=== PATIENT | female | born 1940 | race Caucasian/White ===

== ENCOUNTER → 2016-06-02 | Outpatient (CLI) | payer OTHER ==
[~2016-06-02] MED LIST: ASCO1CAP3 PO; BROM0.07 OPR; CHOL1TAB12 PO; LEVO75TA PO; LORA0.5T12 PO; MAGN250T3 PO; MULT-610 PO; PRED1SUS3 OPR
[2016-06-02 15:30] LABS: THYROID STIMULATING HORMONE 0.336 uIu/ml (0.300-4.500)
== END | disposition home or self-care (01) ==
LOC: C.LABBC 09:55
PROVIDERS: ATTEND Internal Medicine Endocrinology, Diabetes & Metabolism
DX: M81.0 Age-related osteoporosis without current pathological fracture (principal); E89.0 Postprocedural hypothyroidism; E55.9 Vitamin D deficiency, unspecified

== ENCOUNTER → 2016-09-17 | Outpatient (CLI) | payer OTHER ==
--- NOTE | 2016-09-17 09:26 | DIAGNOSTIC IMAGING REPORT ---
THYROID AND NECK ULTRASOUND CLINICAL HISTORY: Papillary thyroid carcinoma. Postablative hypothyroidism. COMPARISON STUDY: Nuclear medicine sestamibi scan January 17, 2016. TECHNIQUE: Sonography of the thyroidectomy bed and adjacent soft tissues was performed. FINDINGS: No residual thyroid tissue is identified by sonography. No nodule or enlarged lymph node is identified within the neck. IMPRESSION: 1. No abnormality within the thyroidectomy bed. 2. No cervical lymphadenopathy identified by sonography. Electronically signed by: Jersey Monzon M.D. 09/17/2016 9:24 AM Dictated Date/Time: 09/17/2016 9:23 AM
== END | disposition home or self-care (01) ==
LOC: C.ULTR 08:49
PROVIDERS: ATTEND Internal Medicine Endocrinology, Diabetes & Metabolism
DX: C73 Malignant neoplasm of thyroid gland (principal); E89.0 Postprocedural hypothyroidism; Z86.39 Personal history of other endocrine, nutritional and metabolic disease

== ENCOUNTER → 2016-10-01 | Outpatient (CLI) | payer OTHER ==
[2016-10-01 10:01] LABS: THYROID STIMULATING HORMONE 0.27 uIu/ml (0.300-4.500)
== END | disposition home or self-care (01) ==
LOC: C.LAB1850 07:58
PROVIDERS: ATTEND Internal Medicine Endocrinology, Diabetes & Metabolism
DX: E89.0 Postprocedural hypothyroidism (principal); E55.9 Vitamin D deficiency, unspecified; Z86.39 Personal history of other endocrine, nutritional and metabolic disease

== ENCOUNTER → 2016-12-24 | Outpatient (CLI) | payer OTHER | END | disposition home or self-care (01) | LOC: C.LABSPEC 17:23 | PROVIDERS: ATTEND Podiatrist Foot & Ankle Surgery | DX: B35.1 Tinea unguium (principal) ==

== ENCOUNTER → 2017-01-05 | Outpatient (CLI) | payer OTHER ==
[2017-01-05 14:08] LABS: ALT/SGPT 17 U/L (12-78); AST/SGOT 12 U/L (15-37); BLOOD UREA NITROGEN 17 mg/dl (7-18); BUN/CREATININE RATIO 23.3 (10-20); CALCIUM 9.5 mg/dl (8.5-10.1); CARBON DIOXIDE 29 mmol/L (21-32); CHLORIDE 104 mmol/L (98-107); CREATININE 0.73 mg/dl (0.60-1.20); GLUCOSE 98 mg/dl (70-99); POTASSIUM 3.9 mmol/L (3.5-5.1); SODIUM 140 mmol/L (136-145)
[2017-01-05 14:20] LABS: CHOLESTEROL 181 mg/dl (0-200); CHOLESTEROL/HDL RATIO 2.4; HDL CHOLESTEROL 75 mg/dl; LDL CHOLESTEROL CALCULATED 90 mg/dl; TRIGLYCERIDES 81 mg/dl (0-150); VERY LOW DENSITY LIPOPROT CALC 16 mg/dl
[2017-01-07 17:29] LABS: THYROGLOBULIN <0.1 NG/ML (2.8-40.9)
== END | disposition home or self-care (01) ==
LOC: C.LABBC 09:26
PROVIDERS: ATTEND Internal Medicine Endocrinology, Diabetes & Metabolism
DX: E78.00 Pure hypercholesterolemia, unspecified (principal); R73.03 Prediabetes; D86.9 Sarcoidosis, unspecified; M81.0 Age-related osteoporosis without current pathological fracture; E89.0 Postprocedural hypothyroidism; E55.9 Vitamin D deficiency, unspecified; C73 Malignant neoplasm of thyroid gland

== ENCOUNTER → 2017-03-17 | Outpatient (CLI) | payer OTHER ==
--- NOTE | 2017-03-18 10:36 | MAMMOGRAPHY REPORT ---
BILATERAL DIGITAL SCREENING MAMMOGRAM WITH CAD: 03/17/2017 CLINICAL HISTORY: Routine screening. Patient has no complaints. TECHNIQUE: Current study was also evaluated with a Computer Aided Detection (CAD) system. COMPARISON: Comparison is made to exams dated: 03/14/2016 mammogram, 03/12/2015 mammogram, 03/09/2014 m ammogram, 09/09/2013 mammogram, 03/10/2013 mammogram, and 03/08/2013 mammogram - [facility]. BREAST COMPOSITION: The tissue of both breasts is heterogeneously dense, which may obscure small mas ses. FINDINGS: There are stable groupings of coarse heterogeneous calcifications in the breasts. Mild vas cular calcification. No new suspicious mass, architectural distortion or cluster of microcalcificati ons is seen. IMPRESSION: ACR BI-RADS CATEGORY 1: NEGATIVE There is no mammographic evidence of malignancy. A 1 year screening mammogram is recommended. The pa tient will receive written notification of the results. Approximately 10% of breast cancers are not detected with mammography. A negative mammographic report should not delay biopsy if a clinically suggestive mass is present. Yeimi Mackenzie M.D. ay/:03/17/2017 08:46:46 Coil Finisher: Edith BALBUENA(Yolanda)(Tim), [facility] letter sent: Normal 1/2 BI-RADS Code: ACR BI-RADS Category 1: Negative
== END | disposition home or self-care (01) ==
LOC: C.MAMM 08:24
PROVIDERS: ATTEND Obstetrics & Gynecology
DX: Z12.31 Encounter for screening mammogram for malignant neoplasm of breast (principal)

== ENCOUNTER 2019-10-25 11:09 | Inpatient (IN) ==
--- NOTE | 2019-10-25 11:45 | Emergency Department Note ---
Impression & Plan Ambulatory dysfunction, Generalized muscle weakness, At high risk for falls ED Provider Note CHIEF COMPLAINT: Referral for possible placement HISTORY OF PRESENTING ILLNESS: This is a 79-year-old female who presents to the emergency department by private vehicle stating she was sent here by her PCP, Dr. Hurst. The patient states that she has recently had some falls at home and because of this was placed in rehab over the weekend. The patient states that she was very unhappy with her care at the rehab facility, stating "I just laid in bed all day and nobody did anything for me." She notes that she was having difficulty sleeping and was starting to become very anxious and delirious from not having sleep. She spoke with her daughter and Dr. Hurst yesterday, and they recommended that she come to the emergency department. She states that her daughter is working on setting up home health for her at home, but this may take 24 to 48 hours. The patient is under the impression that she is going to be admitted here for 1 night until her home health is set up. The patient currently lives alone and notes that she has stairs into her house, and is concerned about getting around with a walker, as she has just started using this. Her daughter has some disabilities of her own and is unable to care for the patient. The patient also voiced concerns regarding money stating that she is worried about all of these bills from her recent emergency visits and the rehab. Patient denies any complaints. She does note that she has been having some tailbone pain off and on since her recent falls, but she currently rates her pain is 0/10. She did not have any new falls or injuries. She denies any chest pain, shortness of breath, abdominal pain, back pain, numbness/tingling or weakness of the arms or legs, headaches, dizziness or syncope. REVIEW OF SYSTEMS: A complete 10 point review of systems was reviewed with the patient with pertinent positives and negatives as per history of present illness. All else were negative. PAST MEDICAL HISTORY: Migraines, hypothyroidism, osteoporosis, anxiety SOCIAL HISTORY: Lives at home alone, denies tobacco use ALLERGIES: Reviewed in chart PHYSICAL EXAM: CONSTITUTIONAL: Pleasant and cooperative. No acute distress. Well appearing and well nourished. HEENT: Normocephalic, atraumatic. PERRL, EOMI, normal conjunctiva. NECK: Supple, full active range of motion without discomfort. No cervical adenopathy. RESPIRATORY: Clear to auscultation bilaterally with no wheezing, crackles, rhonchi or stridor. Equal expansion bilaterally. CARDIOVASCULAR: Regular rate and rhythm with no murmurs, rubs or gallops. Normal peripheral perfusion, 2+ distal pulses in all 4 extremities. No pitting edema. GASTROINTESTINAL: Soft, nontender, nondistended. No palpable masses or HSM. Bowel sounds present in all quadrants. No CVA tenderness bilaterally. MUSCULOSKELETAL: Full range of motion of all joints without discomfort. 5/5 strength in all 4 extremities. Dorsiflexion and plantarflexion equal and strong bilaterally. INTEGUMENTARY: No rash or other significant dermatologic conditions noted. NEUROLOGIC: Alert and oriented X 4 with normal affect. Normal sensation in all 4 extremities. Normal speech. ED COURSE AND MEDICAL DECISION MAKING: CC: Patient presenting with complaint of need for possible placement DIFFERENTIAL DIAGNOSIS: Includes, but not limited to ambulatory dysfunction, failure to thrive, generalized muscle weakness, fall risk, among others. MEDICATION RECONCILIATION: I attest that I have personally reviewed the patient's current medication list. INITIAL VITAL SIGNS REVIEW: I reviewed the patient's initial vital signs and interpret them as follows: T: Afebrile; BP: Hypertensive; HR: Mildly tachycardic; RR: Within normal limits; Pulse Ox: Within normal limits on room air. Blood pressure screening: The patient was found to have an elevated blood pressure and was referred to their primary doctor for recheck and further treatment. MDM SUMMARY: Patient was evaluated at bedside, history and physical exam performed. Patient is alert and oriented, in no acute distress, resting calmly in the stretcher. She denies any complaints and her exam is unremarkable. Patient states she is here because she wants to go home from rehab, but is waiting for home health to be set up. The patient voices multiple times a concern regarding her finances, and does not want to be charged for any unnecessary tests. Given that she has not had any new injuries or complaints I do not feel any imaging or laboratory tests are warranted at this time. My greatest concern for the patient is that I do not feel she is safe to return home without some level of assistance. I spoke at length with the manager online, who is helping to coordinate the patient's care and plan for disposition. A physical therapy evaluation was ordered to determine the patient's fitness for discharge home, and after evaluation, they did not feel that she was safe to be discharged home alone. Patient discussed with Dr. Martinez, who agrees with my assessment, plan, and disposition. The gearcase assembler spoke at length with the patient and her daughter, and the patient is now agreeable to return to [facility] for further rehab. global engineering manager notes that [facility] is not willing to receive the patient back. She is looking into other rehab options for the patient. Ultimately, we were unable to find any rehab placement for the patient at this time. Given the patient's concern for ambulatory dysfunction and fall risk, she is unable to safely go home by herself. I spoke on the phone with Aleah Palacios with the hospitalist team, she agrees to evaluate the patient for admission. The patient was agreeable to the plan for admission. The chart was completed utilizing [employer] Speech voice recognition software. Grammatical errors, random word insertions, pronoun errors, and incomplete sentences are an occasional consequence of this system due to software limitations, ambient noise, and hardware issues. Any formal questions or concerns about the content, text, or information contained within the body of this dictation should be directly addressed to the nurse practitioner for clarification. Past Med/Surg History Medical History History of vitamin D deficiency (Acute) Hypothyroidism, postablative Migraine Osteoporosis Family History Mother Cardiovascular disease Diabetes Hypothyroidism Father Cardiovascular disease Diabetes Hypothyroidism Myocardial infarction Other Congestive heart failure Hypertension Denies family history of Colon cancer Ovarian cancer Prostate cancer Breast cancer Social History Smoking Status: Never smoker Hx Alcohol Use: No Hx Substance Use: No Preferred Language: Serbian Communication Ability: Effective marital status: current occupational status: retired Feels Safe at Home: Yes Physical Activity Frequency: Does not Exercise Seatbelt Use: always Allergies Allergies Allergy/AdvReac Type Severity Reaction Status Date / Time midazolam Allergy Mild confused, Unverified 10/21/19 08:52 off balence EPINEPHrine Base AERS AdvReac Unknown Unknown Uncoded 10/21/19 08:52 Home Meds Home Medications Medication Instructions Recorded Confirmed L.acid-B.inf-B.bifid-B.animal 5 1 cap PO DAILY 09/13/19 10/25/19 billion cell capsule sennosides 8.6 mg-docusate sodium 3 tab PO HS 09/13/19 10/25/19 50 mg tablet levothyroxine [Tirosint] 75 mcg PO QAM 10/19/19 10/25/19 linaclotide [Linzess] 145 mcg PO QAM 10/19/19 10/25/19 sertraline 50 mg PO HS 10/19/19 10/25/19 Previous Rx's Medication Instructions Recorded ibandronate 150 mg tablet 150 mg PO .COMPLEX #7 tab 09/14/19 Results & Data (ED) Vital Signs Vital Signs - 24 hr 10/25/19 11:12 10/25/19 13:33 10/25/19 15:00 Temperature 36.8 C Temperature Source Oral Pulse Rate 101 H Pulse Rate [Right Finger] 78 78 Respiratory Rate 16 16 16 Respiratory Effort / Characteristics Non-Labored Non-Labored Respiratory Depth Normal Normal Normal Blood Pressure 117/82 Blood Pressure [Right Arm] 144/90 H 144/90 H Blood Pressure Mean 93 Blood Pressure Mean [Right Arm] 108 108 Blood Pressure Position [Right Arm] Pulse Oximetry 97 99 99 Oxygen Delivery Method Room Air Room Air Room Air Sepsis Recent Fever Within 48 Hours No Sepsis New/Unexplained Change in Mental Status N/A Sepsis Action Taken by Nursing No Action Required 10/25/19 18:06 Temperature Temperature Source Pulse Rate Pulse Rate [Right Finger] 73 Respiratory Rate 18 Respiratory Effort / Characteristics Non-Labored Spontaneous Respiratory Depth Normal Blood Pressure Blood Pressure [Right Arm] 115/79 Blood Pressure Mean Blood Pressure Mean [Right Arm] 91 Blood Pressure Position [Right Arm] Lying Pulse Oximetry 96 Oxygen Delivery Method Room Air Sepsis Recent Fever Within 48 Hours Sepsis New/Unexplained Change in Mental Status Sepsis Action Taken by Nursing Discharge Plan Visit Data Chief Complaint: Fall Stated Complaint: REAR END PAIN,MUSCLE ED Provider: Cleve Martinez ED Midlevel Provider: Aleah Bragg Discharge Problem: Ambulatory dysfunction, Generalized muscle weakness, At high risk for falls Patient Disposition: Admitted As Inpatient Forms Stand Alone Forms: [facility] Prescriptions Prescriptions: No Action sennosides-docusate sodium [Colace 2-In-1] 8.6-50 mg tablet 3 tab PO HS RF: 0 Probiotic Digestive System Sup 5 billion cell capsule 1 cap PO DAILY RF: 0 ibandronate [Boniva] 150 mg tablet 150 mg PO .COMPLEX Qty: 7 RF: 2 Tirosint 75 mcg capsule 75 mcg PO QAM RF: 0 sertraline 50 mg tablet 50 mg PO HS RF: 0 Linzess 145 mcg capsule 145 mcg PO QAM RF: 0 Referrals Referrals: Cleve Hurst MD [Primary Care Provider] -
--- NOTE | 2019-10-25 18:25 | History & Physical Report ---
Date of Service October 25, 2019 Assessment & Plan (1) Ambulatory dysfunction: Patient was seen in the ED 10/20 for multiple falls the night before. At that time CT of head adn cspine were negative for fractures. She did have some electrolyte disturbances attributed to dehydration. She was referred to [facility] from there. At that time her ECG showed a normal SR. She was discharged from the ED to [facility]. Unfortunately she left [facility] due to lack of sleep and frustration with some medication issues. She was evaluated in the ED by physical therapy who felt she was not safe to go home. [facility] will not readmit patient and so alternative disposition will be investigated. Will consult CM for assistance. She was evaluated by neurology on 10/19 - felt her ambulatory dysfunction was likely multifactorial due to severe scoliosis and malnutrition with muscle wasting and mild generalized weakness. Patient does not wish to have any further workup. She has no complaints and no significant findings on physical exam so will hold off on any lab work or further testing for now. (2) Memory changes: Seen last week by neurology for memory deficit workup. 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 Will give sertraline 25 mg instead of 50 mg. Should have follow up with outpatient counselor Will consult psych, patient's anxiety and depression seem to be playing a role in her memory issues as well as her ability to maintain therapy for her falls (4) Hammer toe of left foot: Will need to follow up with orthopedics after discharge (5) Osteoporosis: Was to start ibendronate but has not yet. (6) Hypothyroidism, postablative: Continue home levothyroxine (7) Protein calorie malnutrition: Consult tile shader (8) IBS (irritable bowel syndrome): Continue Linzess and sennosides/docusate (9) Sarcoid: Stable (10) Mitral regurgitation: Followed by Dr. Mckeon (11) DVT prophylaxis: SCDs History of Present Illness Primary Care Provider: Cleve Hurst MD Ms. Brown presents after leaving [facility] due to lack of sleep there. She had been admitted to [facility] for frequent falls. She became frustrated with the activity at night there that kept her awake as well as a medication issue that was unable to be resolved. She asked a neighbor to pick her up. Her daughter was advised by Ms. Brown's doctor to come to the ED so her neighbor brought her here. She is not currently experiencing any symptoms except for anxiety and exhaustion. She denies fever, chills, aches, cough, sob, chest pain, lightheadedness, n/v/d, dysuria, hesitancy or rashes. Patient declined blood work or any testing in the ED and maintains that she has already had everything done previously and so wishes to avoid further workup. Allergies Allergy/AdvReac Type Severity Reaction Status Date / Time midazolam Allergy Mild confused, Unverified 10/21/19 08:52 off balence EPINEPHrine Base AERS AdvReac Unknown Unknown Uncoded 10/21/19 08:52 Home Medications Home Medications Medication Instructions Recorded Confirmed Type L.acid-B.inf-B.bifid-B.animal 5 1 cap PO DAILY 09/13/19 10/25/19 History billion cell capsule sennosides 8.6 mg-docusate sodium 3 tab PO HS 09/13/19 10/25/19 History 50 mg tablet ibandronate 150 mg tablet 150 mg PO .COMPLEX #7 tab 09/14/19 10/25/19 Rx levothyroxine [Tirosint] 75 mcg PO QAM 10/19/19 10/25/19 History linaclotide [Linzess] 145 mcg PO QAM 10/19/19 10/25/19 History sertraline 50 mg PO HS 10/19/19 10/25/19 History Past Med/Surg History Medical History History of vitamin D deficiency (Acute) Hypothyroidism, postablative Migraine Osteoporosis Family History Mother Cardiovascular disease Diabetes Hypothyroidism Father Cardiovascular disease Diabetes Hypothyroidism Myocardial infarction Other Congestive heart failure Hypertension Denies family history of Colon cancer Ovarian cancer Prostate cancer Breast cancer Social History Smoking Status: Never smoker Hx Alcohol Use: No Hx Substance Use: No Preferred Language: Chinese Communication Ability: Effective Adjunct Sociology Professor Required: No Beliefs That Will Affect Care: None marital status: Current Living Situation: Alone current occupational status: retired Other Information That Helps Us Care for You: No Feels Safe at Home: Yes Safety Concerns: Feels Safe At This Time Physical Activity Frequency: Does not Exercise Seatbelt Use: always Review of Systems Review of Systems: All systems reviewed & are unremarkable except as noted in HPI & below Physical Exam Physical Exam: General: no distress Eyes: normal inspection, PERLL Respiratory: chest non tender, clear to auscultation, normal breath sounds, no respiratory distress, no accessory muscle use Cardiac: regular rate and rhythm, no rub or gallop, no murmur, no edema, no jvd GI/: active bowel sounds, no abd pain or tenderness, soft, non distended Extremities: normal range of motion, normal strength, non tender Neuro/Psych: alert and oriented x 3, normal mood and affect, CN II - XII intact Skin: normal color, dry Results & Data Results & Data ([facility]) Vital Signs (Past 12 Hours) Vital Signs Temp Pulse Pulse Resp BP BP Pulse Ox 10/25/19 18:06 73 18 115/79 96 10/25/19 15:00 78 16 144/90 H 99 10/25/19 13:33 78 16 144/90 H 99 10/25/19 11:12 36.8 C 101 H 16 117/82 97 Code Status & VTE Plan Code Status DNR VTE Prophylaxis Plan VTE Prophylaxis will be ordered: Yes Supervising Physician Co-Signing Physician Notes I supervised Aleah Palacios NP on this patient's care. I examined the patient today independently of her. I discussed the plan of care with her with the plan being as written in her note except for any following changes/exceptions: None. In no distress in the ED. Reports some pain in the buttocks from her prior fall and then from PT at [facility]. Also concerned about her constipation which is chronic for her. 3 days since her last BM. - Will work on PT/OT & placement - Uses Milk of Magnesia for her constipation PG Care Time/CCT Total # of Minutes Spent Total Time Spent with Patient: Total time spent is greater than 50% in coordination of care (as documented) at patient's floor/unit and/or counseling patient: Coding Level of Care Code 46720 Initial Inpt Care Lvl 3 Diagnoses Ambulatory dysfunction R26.2 Memory changes R41.3 Anxiety, generalized F41.1 Hammer toe of left foot M20.42 Osteoporosis M81.0 Hypothyroidism, postablative E89.0 Protein calorie malnutrition E46 IBS (irritable bowel syndrome) K58.9 Sarcoid D86.9 Mitral regurgitation I34.0 DVT prophylaxis Z29.9
[2019-10-25] MEDS ORDERED: MELATONIN 3 MG TAB PO PRN (19:40)
[2019-10-25] MEDS ORDERED: MAGNESIUM HYDROXIDE SUSP 30 ML UDC PO ONE (20:23)
[2019-10-25] MEDS: DOCUSATE SODIUM/SENNA 50/8.6MG TAB PO SCH (21:34)
[2019-10-26] MEDS: LEVOTHYROXINE SODIUM 75 MCG TABLET PO SCH (07:15)
[2019-10-26] MEDS ORDERED: SERTRALINE HCL 50 MG TABLET PO SCH (09:00)
[2019-10-26] MEDS: LACTOBACILLUS ACIDOPHILUS (FLORANEX) TAB PO SCH (09:03)
[2019-10-26] MEDS ORDERED: SOD PHOSPHATE/SOD BIPHOSPHATE ENEMA 132 ML BTL PR ONE (11:11)
--- NOTE | 2019-10-26 11:32 | Psychiatric Consultation ---
Date of Consultation October 26, 2019 Impression / Recommendations Impression Dr. Dipti Rodriguez was directly involved in review and discussion of the patient's case and participated in medical decision making regarding treatment recommendations. RECOMMENDATIONS: 10/25 - Psychiatric consultation requested to evaluate patient for anxiety/depression, with recent failed SSRI trial (sertraline, max dose of 75mg). - Pt agreeable with discussion regarding alternative agents which may be beneficial for sleep concerns, decreased appetite, low mood, limited energy, and ruminative anxiety. Suggest initiation of mirtazapine at 7.5mg qHS for several nights - with ability to titrate to 15mg if patient tolerates the medication without concerns. Risks, benefits, and potential side effects discussed with patient - specifically risk of sedation which may contribute to gait instability if attempting to ambulate at night. Pt verbalized awareness and is agreeable with starting the medication here in the hospital. - Offered referrals for outpatient psychiatric medication management and psychotherapy, which patient declined due to financial concerns. Pt is hopeful her PCP will feel comfortable continuing to manage antidepressant medications. Pt can be referred for formal psychiatric medication management on an outpatient basis if indicated. - In regard to reported cognitive deficits, agree with outpatient neurology recommendations. Neuropsychological testing has been suggested and it will be difficult to make a definitive diagnosis of underlying dementia in the presence of uncontrolled anxiety/depression. Suggest continued evaluation to determine the significance of this as patient's depression/anxiety is being addressed. Mini-Cog completed by psychiatric nurse liaison with patient scoring a 3/5 (unable to recall 2 of 3 words without cueing, no issues with clock drawing). - Appreciate the opportunity to participate in the care of this patient. Please reach out to our service with any additional questions or updates. Psych History Identifying Data 79-year-old female admitted medically on 10/25/2019 after presenting to the ED upon recommendation from PCP due to ambulatory dysfunction. Pt was recently discharged home from [facility], but is representing with possible placement referral. Psychiatric consultation is requested by hospitalist team for evaluation of anxiety and depression, as there is concern this may be interfering with patient's treatment compliance. Chief Complaint "Well, um, I was upset about a lot of things happening in my family - just feeling depressed and down. I started Zoloft, but it seemed to make me worse." History of Present Illness Aleisha Brown is a 79-year-old female admitted medically on 10/25/2019 after presenting to the ED upon recommendation from PCP due to continued ambulatory dysfunction and fall risk. It is possible patient may be referred for placement given these recent concerns. As patient reported poor sleep and anxiety contributed to request to leave [facility], psychiatric consultation was requested by the hospitalist team to evaluate patient for anxiety and depression. Pt is cooperative with psychiatric assessment. She admits that she has been struggling more recently with low mood and anxiety, and even began taking sertraline as prescribed by her PCP. Pt states she started the medication as "I was upset about a lot of things happening in my family - just feeling depressed and down." Pt states that she had been having falls at home which led to recommendation for inpatient physical rehab at [facility]. Per patient's report, "I felt like more of a pain to them. I felt like burden, so I just wanted to come home." Pt admits that her anxiety and depression have worsened in the last 3 weeks since noticing a significant increase in health concerns. Pt also reports feeling "obsessive about germs" due to the combination of being hospitalized, concern about spreading infection to her daughter, and the current pandemic situation. Pt does endorse low mood presently, with history of episodes of depression. She states her daughter has also informed her "I was apparently quite depressed during her childhood." Pt also endorses increased anxiety, contributing to racing thoughts that make it difficult to sleep at night. Pt suggests she has not noticed a change in her appetite, but does mention losing 15lbs unintentionally over the past 6 months. Pt specifically mentions that her daughter has been concerned about her weight loss and believes the patient's appetite has been reduced. Pt states that she was seen by outpatient neurology and believes mirtazapine had been recommended to her. She was familiar with the suggestion, but denies antidepressant medication trials prior to the sertraline. Pt feels the sertraline had contributed to gait instability and is hopeful to discontinue the medication. Pt admits to anxiety about "anything new and different disturbs me." She did ask meaningful questions about starting a new medication, and risks and benefits were reviewed in detail. Pt was offered referral for an outpatient therapist and psychiatric prescriber which she declined. Pt denied SI/HI, SIB and any perceived safety concerns related to being in the hospital or discharge. Pt reports it is her current preference to return home with home health. She denied other needs or concerns from our service at this time. Past Psychiatric History Current Psychiatric Diagnosis: concern for depression/anxiety Outpatient Services: Sertraline prescribed by PCP Previous Psych Admissions: Denied History of Previous Suicide Attempt: No Past Medication Trials: Per patient's report and review of available external medical history: 1. Zoloft - concern dose of 75mg may have been contributing to ambulatory dysfunction 2. Ativan - taken to assist with anxiety/insomnia 3. Melatonin - given during this hospitalization for sleep Allergies Allergy/AdvReac Type Severity Reaction Status Date / Time midazolam Allergy Mild confused, Unverified 10/21/19 08:52 off balence EPINEPHrine Base AERS AdvReac Unknown Unknown Uncoded 10/21/19 08:52 Home Medications Home Medications Medication Instructions Recorded Confirmed Type L.acid-B.inf-B.bifid-B.animal 5 1 cap PO DAILY 09/13/19 10/25/19 History billion cell capsule sennosides 8.6 mg-docusate sodium 3 tab PO HS 09/13/19 10/25/19 History 50 mg tablet ibandronate 150 mg tablet 150 mg PO .COMPLEX #7 tab 09/14/19 10/25/19 Rx levothyroxine [Tirosint] 75 mcg PO QAM 10/19/19 10/25/19 History linaclotide [Linzess] 145 mcg PO QAM 10/19/19 10/25/19 History sertraline 50 mg PO HS 10/19/19 10/25/19 History Family History Reports father with a history of depression - also states father had Parkinson's disease. Substance Abuse History Denies significant alcohol or tobacco use. Denies use of illicit substances. 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) Marital Status: Number Of Children: One daughter Beliefs That Will Affect Care: None History of Legal Problems: None Psychological Trauma History Comment: None Patient History Medical History History of vitamin D deficiency (Acute) Hypothyroidism, postablative Migraine Osteoporosis Surgical History History of sigmoidoscopy S/P breast biopsy S/P hysterectomy with oophorectomy S/P subtotal thyroidectomy S/P thoracotomy Family History Mother Cardiovascular disease Diabetes Hypothyroidism Father Cardiovascular disease Diabetes Hypothyroidism Myocardial infarction Other Congestive heart failure Hypertension Denies family history of Colon cancer Ovarian cancer Prostate cancer Breast cancer Social History Smoking Status: Never smoker Hx Alcohol Use: No Hx Substance Use: No Preferred Language: Italian Communication Ability: Effective Emergency Services Dispatcher Required: No Beliefs That Will Affect Care: None marital status: Current Living Situation: Alone current occupational status: retired Other Information That Helps Us Care for You: No Feels Safe at Home: Yes Safety Concerns: Feels Safe At This Time Physical Activity Frequency: Does not Exercise Seatbelt Use: always Physical Exam Psychiatric: Orientation: alert, oriented x 3 and cooperative (and pleasant) Apperance: appropriately dressed, appropriately groomed and appeared stated age Underweight-appearing female, seated in bedside chair in no acute distress. Pt is appropriately dressed, wearing a hospital gown. She has short, curly, diehl hair which seems appropriately styled for setting. She wears corrective lenses. Level of hygiene and hydration appear adequate. Eye Contact: good eye contact Motor Behavior: no abnormal motor movements (observed while sitting in bedside chair) Speech: normal rate/rhythm/volume of speech (monotone speech) Affect: + blunted affect and + constricted affect Mood: + depressed mood and + anxious mood Thought Process: goal directed thought process, clear/coherent thought process and + perseveration (on germs and bowel movements) Thought Content: + preoccupation (with constipation, regularity of bowel movements, and germs), reality based without delusions, + hopelessness and + guilt (admits to feeling like a burden with regard to care needed at this time) Suicidal Thoughts: denies suicidal thoughts, denies suicidal plan and denies suicidal intent Homicidal Thoughts: denies homicidal thoughts Hallucinations: no auditory hallucinations and no visual hallucinations Cognition: attention grossly intact and language grossly intact Estimated Intelligence: consistent with education level Insight: + fair insight Judgement: + fair judgement Vital Signs (Past 24 Hours): Last Vital Signs Temp 36.6 C 10/26/19 07:30 Pulse 69 10/26/19 07:30 Resp 14 10/26/19 07:30 BP 105/74 10/26/19 10:27 Pulse Ox 97 10/26/19 07:30 Review of Systems Constitutional: reports difficulty falling asleep, 15lb weight loss in the past 6 months Cardiovascular: denied Respiratory: denied Gastrointestinal: denied Neurological: denied Psychiatric: denies symptoms other than stated above Total of at least 10 systems reviewed, pertinent positives as above and in HPI. Results & Data (PSY) Medications Administered Lactobacillus Acidophilus (Floranex) 4 tab PO DAILY HENRIQUE Stop: 11/25/19 08:59 Last Admin: 10/26/19 09:03 Dose: 4 tab Documented by: [id number] Levothyroxine Sodium (Synthroid) 75 mcg PO DAILYBB HENRIQUE Stop: 11/25/19 07:29 Last Admin: 10/26/19 07:15 Dose: 75 mcg Documented by: [id number] Miscellaneous (Order Awaiting Action) 1 ea N/A QS HENRIQUE Stop: 11/25/19 00:00 Last Admin: 10/26/19 09:02 Dose: Not Given Documented by: [id number] Admin: 10/26/19 00:22 Dose: Not Given Documented by: [id number] Aquilinoaneous (Order Awaiting Action) 1 ea N/A QS HENRIQUE Stop: 11/25/19 00:00 Last Admin: 10/26/19 09:02 Dose: Not Given Documented by: [id number] Admin: 10/25/19 21:36 Dose: Not Given Documented by: [id number] Senna/Docusate Sodium (Senokot S) 3 tab PO HS HENRIQUE Stop: 11/24/19 20:59 Last Admin: 10/25/19 21:34 Dose: 3 tab Documented by: [id number] Sertraline HCl (Zoloft) 25 mg PO QAM HENRIQUE Stop: 11/25/19 08:59 Last Admin: 10/26/19 09:03 Dose: 25 mg Documented by: [id number] Coding Level of Care Code 33898 U Intl Hosp Care Lvl 2
--- NOTE | 2019-10-26 14:42 | Hospitalist Progress Note ---
Date of Service October 26, 2019 Assessment & Plan (1) Ambulatory dysfunction: Patient was seen in the ED 10/20 for multiple falls the night before. At that time CT of head adn cspine were negative for fractures. She did have some electrolyte disturbances attributed to dehydration. She was referred to [facility] from there. At that time her ECG showed a normal SR. She was discharged from the ED to [facility]. Unfortunately she left [facility] due to lack of sleep and frustration with some medication issues. She was evaluated in the ED by physical therapy who felt she was not safe to go home. [facility] will not readmit patient and so alternative disposition will be investigated. Will consult for assistance. She was evaluated by neurology on 10/19 - felt her ambulatory dysfunction was likely multifactorial due to severe scoliosis and malnutrition with muscle wasting and mild generalized weakness. Patient does not wish to have any further workup. She has no complaints and no significant findings on physical exam so will hold off on any lab work or further testing for now. - PT/OT - orthostatics (2) Memory changes: Seen last week by neurology for memory deficit workup. Pseudodementia due to worsening depression/anxiety vs mild underlying early dementia - was referred for formal neuropsych testing - B12 and thiamine and methylmalonic acid levels were ordered - B12 was normal, B1 pending, methylmalonic acid pending (3) Anxiety, generalized: with depression Should have follow up with outpatient counselor Appreciate psychiatry consult - discontinued sertraline and initiated mirtaze pine to help with sleep and appetite as well as mood (4) Hammer toe of left foot: Will need to follow up with orthopedics after discharge (5) Osteoporosis: Was to start ibendronate but has not yet. (6) Hypothyroidism, postablative: Continue home levothyroxine (7) Protein calorie malnutrition: Consult graphics specialist (8) IBS (irritable bowel syndrome): Continue Linzess and sennosides/docusate Patient requesting enema - will order Fleets (9) Sarcoid: Stable (10) Mitral regurgitation: Followed by Dr. Mckeon (11) DVT prophylaxis: SCDs Admission and Anticipated Discharge Date Admission Date: October 25, 2019 Subjective Ms. Brown is experiencing some constipation and that her "blood pressure drops when I stand up". ROS Constitutional: no chills, aches, sweats or fever Respiratory: no sob,cough, sputum, or wheezing Cardiac: no chest pain, palpitations, edema, orthopnea or lightheadedness GI: no abdominal pain, nausea, vomiting, diarrhea or constipation : no dysuria or hesitancy Extremities: no joint pain or weakness Skin: no rash All other systems reviewed and negative Physical Exam Physical Exam: General: no distress Eyes: normal inspection, PERLL Respiratory: chest non tender, clear to auscultation, normal breath sounds, no respiratory distress, no accessory muscle use Cardiac: regular rate and rhythm, no rub or gallop, no murmur, no edema, no jvd GI/: active bowel sounds, no abd pain or tenderness, soft, non distended Extremities: normal range of motion, normal strength, non tender Neuro/Psych: alert and oriented x 3, normal mood and affect Skin: normal color, dry Results & Data Results & Data ([facility]) Vital Signs (Past 12 Hours) Vital Signs Temp Pulse Resp BP Pulse Ox 10/26/19 10:27 105/74 10/26/19 07:30 36.6 C 69 14 120/78 97 PG Care Time/CCT Total # of Minutes Spent Total Time Spent with Patient: Total time spent is greater than 50% in coordination of care (as documented) at patient's floor/unit and/or counseling patient: Coding Level of Care Code 80502 Subseq Hosp Care Lvl 2 Diagnoses Ambulatory dysfunction R26.2 Memory changes R41.3 Anxiety, generalized F41.1 Hammer toe of left foot M20.42 Osteoporosis M81.0 Hypothyroidism, postablative E89.0 Protein calorie malnutrition E46 IBS (irritable bowel syndrome) K58.9 Sarcoid D86.9 Mitral regurgitation I34.0 DVT prophylaxis Z29.9
[2019-10-26] MEDS: DOCUSATE SODIUM/SENNA 50/8.6MG TAB PO SCH (20:43)
[2019-10-26] MEDS: MIRTAZAPINE TAB 15 MG TAB PO SCH (20:43)
[2019-10-27] MEDS: LEVOTHYROXINE SODIUM 75 MCG TABLET PO SCH (05:30)
[2019-10-27] MEDS: LACTOBACILLUS ACIDOPHILUS (FLORANEX) TAB PO SCH (08:04)
[2019-10-27] MEDS ORDERED: SOD PHOSPHATE/SOD BIPHOSPHATE ENEMA 132 ML BTL PR PRN (13:50)
--- NOTE | 2019-10-27 13:52 | Hospitalist Progress Note ---
Date of Service October 27, 2019 Assessment & Plan (1) Ambulatory dysfunction: Patient was seen in the ED 10/20 for multiple falls the night before. At that time CT of head and cspine were negative for fractures. She did have some electrolyte disturbances attributed to dehydration. She was referred to [facility] from there. At that time her ECG showed a normal SR. She was discharged from the ED to [facility]. Unfortunately she left [facility] due to lack of sleep and frustration with some medication issues. She was evaluated in the ED by physical therapy who felt she was not safe to go home. [facility] will not readmit patient and so alternative disposition will be investigated. Will consult for assistance. She was evaluated by neurology on 10/19 - felt her ambulatory dysfunction was likely multifactorial due to severe scoliosis and malnutrition with muscle wasting and mild generalized weakness. Patient does not wish to have any further workup. She has no complaints and no significant findings on physical exam so will hold off on any lab work or further testing for now. - PT/OT - orthostatics (2) Memory changes: Seen last week by neurology for memory deficit workup. Pseudodementia due to worsening depression/anxiety vs mild underlying early dementia - was referred for formal neuropsych testing - B12 and thiamine and methylmalonic acid levels were ordered - B12 was normal, B1 pending, methylmalonic acid pending (3) Anxiety, generalized: with depression Should have follow up with outpatient counselor Appreciate psychiatry consult - discontinued sertraline and initiated mirtaze pine to help with sleep and appetite as well as mood (4) Hammer toe of left foot: Will need to follow up with orthopedics after discharge (5) Osteoporosis: Was to start ibendronate but has not yet. (6) Hypothyroidism, postablative: Continue home levothyroxine (7) Protein calorie malnutrition: Consult gravel weigher (8) IBS (irritable bowel syndrome): Continue Linzess and sennosides/docusate Prn Fleet enema (9) Sarcoid: Stable (10) Mitral regurgitation: Followed by Dr. Mckeon (11) DVT prophylaxis: SCDs Admission and Anticipated Discharge Date Admission Date: October 25, 2019 Subjective Ms. Brown is very concerned about her constipation but otherwise is doing ok. She was able to have a BM yesterday after an enema. She has no abdominal pain, distention or nausea. ROS Constitutional: no chills, aches, sweats or fever Respiratory: no sob,cough, sputum, or wheezing Cardiac: no chest pain, palpitations, edema, orthopnea or lightheadedness GI: no abdominal pain, nausea, vomiting, diarrhea : no dysuria or hesitancy Extremities: no joint pain or weakness Skin: no rash All other systems reviewed and negative Physical Exam Physical Exam: General: no distress Eyes: normal inspection, PERLL Respiratory: chest non tender, clear to auscultation, normal breath sounds, no respiratory distress, no accessory muscle use Cardiac: regular rate and rhythm, no rub or gallop, no murmur, no edema, no jvd GI/: active bowel sounds, no abd pain or tenderness, soft, non distended Extremities: normal range of motion, normal strength, non tender Neuro/Psych: alert and oriented x 3, normal mood and affect Skin: normal color, dry Results & Data Results & Data ([facility]) Vital Signs (Past 12 Hours) Vital Signs Temp Pulse Resp BP Pulse Ox 10/27/19 07:32 36.6 C 68 14 139/85 98 PG Care Time/CCT Total # of Minutes Spent Total Time Spent with Patient: Total time spent is greater than 50% in coordination of care (as documented) at patient's floor/unit and/or counseling patient: Coding Level of Care Code 99513 Subseq Hosp Care Lvl 2 Diagnoses Ambulatory dysfunction R26.2 Memory changes R41.3 Anxiety, generalized F41.1 Hammer toe of left foot M20.42 Osteoporosis M81.0 Hypothyroidism, postablative E89.0 Protein calorie malnutrition E46 IBS (irritable bowel syndrome) K58.9 Sarcoid D86.9 Mitral regurgitation I34.0 DVT prophylaxis Z29.9
[2019-10-27] MEDS: DOCUSATE SODIUM/SENNA 50/8.6MG TAB PO SCH (20:05)
[2019-10-27] MEDS: MIRTAZAPINE TAB 15 MG TAB PO SCH (20:05)
--- NOTE | 2019-10-28 04:08 | Communication Note ---
Date of Service: October 28, 2019 Aleisha had chest pain that radiated to left jaw and left arm. Patient was concerned about PR. ECG ordered, which was unremarkable/normal ECG. Pain resolved shortly after ECG and with mild reassurance. She noted pain improved from taking her bra off for the ECG, so perhaps the ECG was therapeutic in that regards. Resident Activity Tracking Resident Involvement: Resident Care Provided Care Provided: Adult Hospital Medicine
[2019-10-28] MEDS: LEVOTHYROXINE SODIUM 75 MCG TABLET PO SCH (05:23)
[2019-10-28] MEDS: LACTOBACILLUS ACIDOPHILUS (FLORANEX) TAB PO SCH (07:49)
--- NOTE | 2019-10-28 14:46 | Discharge Summary ---
Date of Service October 28, 2019 Admission HPI Per Admitting Provider Ms. Brown presents after leaving [facility] due to lack of sleep there. She had been admitted to [facility] for frequent falls. She became frustrated with the activity at night there that kept her awake as well as a medication issue that was unable to be resolved. She asked a neighbor to pick her up. Her daughter was advised by Ms. Brown's doctor to come to the ED so her neighbor brought her here. She is not currently experiencing any symptoms except for anxiety and exhaustion. She denies fever, chills, aches, cough, sob, chest pain, lightheadedness, n/v/d, dysuria, hesitancy or rashes. Patient declined blood work or any testing in the ED and maintains that she has already had everything done previously and so wishes to avoid further workup. Principal Diagnosis Frequent falls Discharge Exam Constitutional WD/WN, vitals as above Respiratory normal respiratory effort, lungs clear to auscultation Cardiovascular RRR, no murmur, no edema Gastrointestinal (Abdomen) Inspection/Auscultation: abdomen normal to inspection and normal bowel sounds; abdomen not distended Percussion/Palpation: abdomen soft; abdomen nontender Musculoskeletal no cyanosis or clubbing, extremities motor strength 5/5 Skin no rashes, warm and dry Neurologic moves all extremities and awake Psychiatric A+Ox3, euthymic affect Discharge Data Allergies Allergy/AdvReac Type Severity Reaction Status Date / Time midazolam Allergy Mild confused, Unverified 10/21/19 08:52 off balence EPINEPHrine Base AERS AdvReac Unknown Unknown Uncoded 10/21/19 08:52 Consultations 10/25/19 17:21 ED Decision to Admit Stat 10/25/19 19:40 Consult Case Management - Discharge Planning Routine 10/26/19 07:50 Consult Psychiatry Routine Hospital Course (1) Ambulatory dysfunction: Patient was seen in the ED 10/20 for multiple falls the night before. At that time CT of head and cspine were negative for fractures. She did have some electrolyte disturbances attributed to dehydration. She was referred to [facility] from there. At that time her ECG showed a normal SR. She was discharged from the ED to [facility]. Unfortunately she left [facility] due to lack of sleep and frustration with some medication issues. She was evaluated in the ED by physical therapy who felt she was not safe to go home. [facility] will not readmit patient and so alternative disposition will be investigated. Will consult CM for assistance. She was evaluated by neurology on 10/19 - felt her ambulatory dysfunction was l ikely multifactorial due to severe scoliosis and malnutrition with muscle wasting and mild generalized weakness. She is orthostatic: dropped from 136 systolically to 91 with standing. TEDS, move from sitting to standing slowly, stay hydrated. Patient does not wish to have any further workup. She has no complaints and no significant findings on physical exam so will hold off on any lab work or further testing for now. - PT/OT (2) Memory changes: Seen last week by neurology for memory deficit workup. 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 Her ECG was unremarkable and her chest pain was relieved with repositioning and removal of restrictive clothing. She has been ambulating the halls without any chest pain and has had no further instances. (5) Hammer toe of left foot: Will need to follow up with orthopedics after discharge (6) Osteoporosis: Was to start ibendronate but has not yet. 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 Mckeon (12) DVT prophylaxis: SCDs Total Time Total Time Spent Total Time Spent (In Minutes): greater than 30 minutes Discharge Plan Discharge Items Patient Disposition: Home - Home Health Services Reason For Visit: FALLS Discharge Diagnosis: Falls Activity: Resume your previous activity Non-emergency contact: Primary Care Provider Call non-emergency contact if: you have any medication questions Follow-up/Referrals: ProCleve MD [Primary Care Provider] - Diet: Regular Addtl Attending Provider Instructions: Ambulatory dysfunction, orthostasis: Patient has had multiple falls with recent visit to the emergency department on 10/20. At that time CT of head and cspine were negative for fractures. She did have some electrolyte disturbances attributed to dehydration. She was referred to [facility] from there. At that time her ECG showed a normal SR. She was discharged from the ED to [facility]. She wished to leave [facility] and so returned to the emergency department. She was evaluated in the ED by physical therapy who felt she was not safe to go home. She was evaluated by neurology on 10/19 - felt her ambulatory dysfunction was likely multifactorial due to severe scoliosis and malnutrition with muscle wasting and mild generalized weakness. She is orthostatic - blood pressure dropped from 136 systolically to 91 with standing. Encourage patient to go from sitting to standing slowly. Wear MARIA ISABEL hose and stay hydrated. Patient does not wish to have any further workup. She has no complaints and no significant findings on physical exam so no further work up was performed except for vital signs and and ECG Chest pain: Last evening she developed radiating chest pain to her arm and jaw during the night. Her ECG was unremarkable and her chest pain was relieved with repositioning and removal of restrictive clothing. She has been ambulating the halls without any chest pain and has had no further instances. Memory changes: Seen last week by neurology for memory deficit workup. 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 This can be titrated up with her provider if necessary Hammer toe of left foot: Will need to follow up with orthopedics after discharge Osteoporosis: Was to start ibendronate but has not yet. Hypothyroidism, postablative: Continue home levothyroxine Protein calorie malnutrition: Add Boost supplements three times per day and consider caustic purification operator follow up IBS (irritable bowel syndrome): Continue Linzess and sennosides/docusate Prn Fleet enema Sarcoid: Stable Mitral regurgitation: Followed by Dr. Mckeon History of papillary thyroid carcinoma and hyperparathyroidism Pending Studies at Discharge: No Stand-Alone Forms: [employer] A/[employer], Smoking Cessation Medications and DC Order Prescriptions: New mirtazapine 15 mg Tablet 7.5 mg PO HS Qty: 30 RF: 0 Enema Disposable 19-7 gram/118 mL Enema 132 ml IA DAILY PRN (Reason: constipation) Qty: 133 RF: 0 Continued sennosides-docusate sodium [Colace 2-In-1] 8.6-50 mg tablet 3 tab PO HS RF: 0 Probiotic Digestive System Sup 5 billion cell capsule 1 cap PO DAILY RF: 0 ibandronate [Boniva] 150 mg tablet 150 mg PO .COMPLEX Qty: 7 RF: 2 Tirosint 75 mcg capsule 75 mcg PO QAM RF: 0 sertraline 50 mg tablet 50 mg PO HS RF: 0 Linzess 145 mcg capsule 145 mcg PO QAM RF: 0 Discharge Orders: Discharge Order (Routine); Ordered 10/28/19 Ordered By: Aleah Palacios Admission Data Admit Date/Time: 10/25/19 18:07 Attending Provider: Raul Dumont Admit Provider: Raul Dumont Primary Care Provider: Cleve Hurst [facility] ; Raul Dum[facility] ; Dipti Rodriguez ; [facility] ; [facility] ; [facility], Other Interventions: Discharge Summary Assessment (RN) Last Done: 10/28/19 15:46 DC Date/Time DO NOT enter until pt leaves facility: 10/28/19 16:47 Supervising Physician Co-Signing Physician Notes I supervised Aleah Palacios NP on this patient's care. I examined the patient today independently of her. I discussed the plan of care with her with the plan being as written in her note except for any following changes/exceptions: None. In no distress today. Plan for [facility] placement. Coding Level of Care Code D/C Day Management >30 mins Diagnoses Ambulatory dysfunction R26.2 Memory changes R41.3 Anxiety, generalized F41.1 Chest pain R07.9 Hammer toe of left foot M20.42 Osteoporosis M81.0 Hypothyroidism, postablative E89.0 Protein calorie malnutrition E46 IBS (irritable bowel syndrome) K58.9 Sarcoid D86.9 Mitral regurgitation I34.0 DVT prophylaxis Z29.9
--- NOTE | 2019-10-28 16:01 | Electrocardiogram Report ---
Test Reason : Blood Pressure : / mmHG Vent. Rate : 070 BPM Atrial Rate : 070 BPM P-R Int : 216 ms QRS Dur : 076 ms QT Int : 396 ms P-R-T Axes : 075 -24 069 degrees QTc Int : 427 ms Sinus rhythm with 1st degree A-V block Septal infarct (cited on or before 28-OCT-2019) Abnormal ECG When compared with ECG of 21-OCT-2019 08:39, No significant change was found Confirmed by Cleve Rosenbaum ([id number]) on 10/28/2019 4:01:04 PM Referred By: REFERRED SELF Confirmed By:Cleve Rosenbaum
== END 2019-10-28 16:47 | disposition home health service (06) | DRG 92 ==
LOC: ED 11:09 → 3W 18:07

== ENCOUNTER 2020-04-12 11:52 | Inpatient (IN) ==
[2020-04-12] MEDS ORDERED: CEFEPIME 2,000 MG/20 ML VIAL IV STA (12:10)
[2020-04-12] MEDS ORDERED: SODIUM CHLORIDE 0.9% 1000ML 1,000 ML IV SCH (12:15)
--- NOTE | 2020-04-12 12:16 | Emergency Department Note ---
Impression & Plan Hypotension, Hypothermia, Bradycardia, Weakness, Acute confusion, Fall ED Provider Note NAME: THAD WINN AGE: 79 SEX: F : 1940 ARRIVES VIA: Walk-In INFORMANT: [Patient][daughter] ED PROVIDER(S): [Richy Luevano MD] CHIEF COMPLAINT: Weakness HISTORY OF PRESENT ILLNESS: The patient is a 79-year-old female who lives alone. The patient was discharged from [facility] in mid February, she has not been doing well since discharge as per her daughter. The patient has been weak, confused, stumbling, she is not able to care for herself. In the last few days, she has fallen twice. Today she was found on the floor by her daughter, it is unknown how long she was on the floor. Her house was quite disheveled. She was cold to the touch. She seemed more confused than even yesterday. She was brought to the hospital for evaluation. Patient is a poor historian, I really cannot get much history from her. She currently denies any pain. Given the circumstances, no further history obtainable. REVIEW OF SYSTEMS: Unobtainable given the mental state. PMHx/PSHx: See Below SOCIAL HISTORY: See Below. PHYSICAL EXAM: GENERAL: Patient is in no acute distress. HEENT: No acute trauma, normocephalic atraumatic, mucous membranes dry, no nasal congestion, no scleral icterus. NECK: No stridor, no adenopathy, no meningismus, trachea is midline. LUNGS: Clear to auscultation bilaterally, no wheeze, no rhonchi, breath sounds equal. HEART: Bradycardic, regular rhythm, no murmurs. ABDOMEN: Soft, nontender, bowel sounds positive, no hernias, no peritonitis. EXTREMITIES: No cyanosis or edema, full range of motion of all the joints without pain or difficulty, no signs for acute trauma. NEUROLOGIC: Awake and alert, poor historian, no acute motor or sensory deficits, no focal weakness. SKIN: No rash, no jaundice, no diaphoresis. Very cool to the touch DIFFERENTIAL DIAGNOSIS: Infection, dehydration, metabolic abnormality, hypothermia, intracranial bleeding, sepsis, UTI, pneumonia, COVID-19, medication reaction, hypo/hyperglycemia, electrolyte disturbance, anemia, hypoxia, cardiac sources, intracerebral event, toxicologic, neurologic, as well as other pathologies. EMERGENCY DEPARTMENT COURSE/PROCEDURES: ECG: Indication was weakness. The ECG shows what appears to be a sinus bradycardia with a first-degree AV block. The rate is 46. There is no ST elevation, no PVCs. The QTc is 502. There is poor R wave progression. Repeat ECG: Indication was bradycardia. Shows a sinus bradycardia with a first- degree AV block. There is no ST elevation, no PVCs. LVH is present. The QTc is 511. Continuous Cardiac Monitoring: An order was placed for continuous cardiac monitoring. The monitor shows a rate of 43 with sinus bradycardia. Critical Care Note: I have personally spent 46 minutes of critical care time in the direct management of this patient. This includes bedside care, interpretat ion of diagnostic studies, and testing, discussion with consultants, patient, and family members, and other required patient management activities. This 46 minutes is in excess of all separately billable procedures. MEDICAL DECISION MAKING: There is no leukocytosis, in fact, the white count was somewhat low at 4.26. No concerning anemia. There was a low platelet count at 122. There is no coagulopathy. Renal panel testing did not show renal failure or significant electrolyte abnormality. Lactic acid level and pro calcitonin levels were normal making severe sepsis less likely. Patient's TSH was slightly high indicating some mild hypothyroidism. The T4 value though was normal. ECG showed a sinus bradycardia, no acute ischemia. Cardiac enzyme testing x1 is not consistent with acute cardiac injury. Urinalysis showed contamination, no obvious infection. Covid and flu testing were negative. Chest film did not show pneumonia or CHF. Brain CT showed no acute bleed or mass-effect. The patient received 2 L of IV saline, 1 L of lactated Ringer's. She was given IV cefepime as empiric antibiotic coverage. The patient presents weak, confused, hypothermic, hypotensive and bradycardic. It appears that this is has been ongoing and escalating for several weeks. The patient does not appear septic by work-up. She has concerning vital signs, however, she has no complaints at the present and is resting comfortably. She is awake. I find no source for a bacterial infection by my work-up. The patient's blood pressure has improved a bit, her heart rate has remained at the bradycardic level. She was placed in a bear hugger, her temperature is s lowly increasing. I spoke to the patient's daughter at length, I talked to the patient. Hospitalization is clearly indicated. Further work-up and care is warranted. Patient does have a living well where she does not want overly aggressive measures. 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 I spoke with case management, the on-call hospitalist was consulted. Past Med/Surg History Medical History History of vitamin D deficiency Hypothyroidism, postablative IBS (irritable bowel syndrome) Migraine Mood disorder Osteoporosis Protein calorie malnutrition Sarcoid Surgical History History of sigmoidoscopy S/P breast biopsy S/P hysterectomy with oophorectomy S/P subtotal thyroidectomy S/P thoracotomy Family History Mother Cardiovascular disease Diabetes Hypothyroidism Father Cardiovascular disease Diabetes Hypothyroidism Myocardial infarction Other Congestive heart failure Hypertension Denies family history of Colon cancer Ovarian cancer Prostate cancer Breast cancer Social History Smoking Status: Never smoker Second Hand Exposure: No; Do You Dip or Chew Tobacco: No; Tobacco Cessation Education Requested by Patient: No Hx Alcohol Use: No Hx Substance Use: No Preferred Language: Argentine Communication Ability: hallucinat [employer]ored Reconnaissance Officer Required: No Beliefs That Will Affect Care: None marital status: Current Living Situation: Alone Current Living Situation Comment: friend with patient in ED current occupational status: retired Other Information That Helps Us Care for You: No Feels Safe at Home: Yes Safety Concerns: Feels Safe At This Time Physical Activity Frequency: Does not Exercise Seatbelt Use: always Assistive Devices: Glasses Allergies Allergies Allergy/AdvReac Type Severity Reaction Status Date / Time midazolam AdvReac Mild confused, Verified 04/12/20 14:07 off balence EPINEPHrine Base AERS Allergy Unknown Unknown Uncoded 04/12/20 14:07 Home Meds Home Medications Medication Instructions Recorded Confirmed benztropine 1 mg tablet 0.5 mg PO BID 02/28/20 04/12/20 paliperidone 6 mg tablet,extended 3 mg PO HS 02/28/20 04/12/20 release 24 hr docusate sodium [Colace] 100 mg PO QDL 04/12/20 04/12/20 donepezil 5 mg PO HS 04/12/20 04/12/20 fluoxetine 20 mg PO PM 04/12/20 04/12/20 levothyroxine [Synthroid] 88 mcg PO QAM 04/12/20 04/12/20 Results & Data (ED) Vital Signs Vital Signs - 24 hr 04/12/20 11:54 04/12/20 12:02 04/12/20 12:10 Temperature 29.5 C L 31.2 C L Temperature Source Temporal Artery Scan Rectal Pulse Rate 47 L Pulse Rate from SpO2 Sensor Respiratory Rate 16 Blood Pressure 93/61 L Blood Pressure Mean 71 Pulse Oximetry 100 99 Oxygen Delivery Method Room Air Room Air Sepsis Recent Fever Within 48 Hours Yes Sepsis New/Unexplained Change in Mental Status Yes Sepsis Action Taken by Nursing No Action Required 04/12/20 12:20 04/12/20 12:34 04/12/20 12:43 Temperature Temperature Source Pulse Rate 40 L 33 L 15 L Pulse Rate from SpO2 Sensor 40 L 49 L 54 L Respiratory Rate 7 L 12 15 Blood Pressure 86/56 L 75/50 L 71/56 L Blood Pressure Mean 65 56 62 Pulse Oximetry 100 98 99 Oxygen Delivery Method Sepsis Recent Fever Within 48 Hours Sepsis New/Unexplained Change in Mental Status Sepsis Action Taken by Nursing 04/12/20 12:45 04/12/20 12:56 04/12/20 13:00 Temperature Temperature Source Pulse Rate 66 51 L 50 L Pulse Rate from SpO2 Sensor 56 L 51 L 50 L Respiratory Rate 13 11 L 11 L Blood Pressure 70/55 L 93/58 L 86/58 L Blood Pressure Mean 62 68 63 Pulse Oximetry 99 98 98 Oxygen Delivery Method Sepsis Recent Fever Within 48 Hours Sepsis New/Unexplained Change in Mental Status Sepsis Action Taken by Nursing 04/12/20 13:10 04/12/20 13:16 04/12/20 13:18 Temperature Temperature Source Pulse Rate 57 L 52 L Pulse Rate from SpO2 Sensor 50 L 52 L 53 L Respiratory Rate 13 11 L 9 L Blood Pressure 87/56 L 76/52 L 89/58 L Blood Pressure Mean 64 58 67 Pulse Oximetry 98 99 99 Oxygen Delivery Method Sepsis Recent Fever Within 48 Hours Sepsis New/Unexplained Change in Mental Status Sepsis Action Taken by Nursing 04/12/20 13:20 04/12/20 13:25 04/12/20 13:34 Temperature 31.1 C L Temperature Source Rectal Pulse Rate 53 L 43 L Pulse Rate from SpO2 Sensor 51 L 44 L Respiratory Rate 11 L 12 Blood Pressure 86/60 L 79/48 L Blood Pressure Mean 66 61 Pulse Oximetry 99 99 Oxygen Delivery Method Sepsis Recent Fever Within 48 Hours Sepsis New/Unexplained Change in Mental Status Sepsis Action Taken by Nursing 04/12/20 13:45 04/12/20 13:48 04/12/20 14:00 Temperature Temperature Source Pulse Rate 51 L 51 L 46 L Pulse Rate from SpO2 Sensor 51 L 51 L 44 L Respiratory Rate 18 13 13 Blood Pressure 77/53 L 66/37 L Blood Pressure Mean 59 40 Pulse Oximetry 100 100 95 Oxygen Delivery Method Sepsis Recent Fever Within 48 Hours Sepsis New/Unexplained Change in Mental Status Sepsis Action Taken by Nursing 04/12/20 14:01 04/12/20 14:15 04/12/20 14:16 Temperature 31.8 C L Temperature Source Rectal Pulse Rate 43 L 80 68 Pulse Rate from SpO2 Sensor 43 L 60 61 Respiratory Rate 14 18 13 Blood Pressure 86/48 L Blood Pressure Mean 62 Pulse Oximetry 98 99 99 Oxygen Delivery Method Sepsis Recent Fever Within 48 Hours Sepsis New/Unexplained Change in Mental Status Sepsis Action Taken by Nursing 04/12/20 14:30 04/12/20 14:31 04/12/20 14:45 Temperature Temperature Source Pulse Rate 74 63 60 Pulse Rate from SpO2 Sensor 59 L 64 59 L Respiratory Rate 17 20 18 Blood Pressure 94/52 L 97/54 L Blood Pressure Mean 73 62 Pulse Oximetry 97 98 97 Oxygen Delivery Method Sepsis Recent Fever Within 48 Hours Sepsis New/Unexplained Change in Mental Status Sepsis Action Taken by Nursing 04/12/20 14:46 04/12/20 15:00 04/12/20 15:01 Temperature Temperature Source Pulse Rate 65 62 61 Pulse Rate from SpO2 Sensor 57 L 62 62 Respiratory Rate 16 18 18 Blood Pressure 91/50 L Blood Pressure Mean 65 Pulse Oximetry 97 97 97 Oxygen Delivery Method Sepsis Recent Fever Within 48 Hours Sepsis New/Unexplained Change in Mental Status Sepsis Action Taken by Nursing 04/12/20 15:15 04/12/20 15:16 04/12/20 15:30 Temperature 33.5 C L Temperature Source Oral Pulse Rate 63 62 Pulse Rate from SpO2 Sensor 62 62 Respiratory Rate 20 20 Blood Pressure 83/58 L Blood Pressure Mean 62 Pulse Oximetry 97 97 Oxygen Delivery Method Sepsis Recent Fever Within 48 Hours Sepsis New/Unexplained Change in Mental Status Sepsis Action Taken by Nursing 04/12/20 15:38 04/12/20 15:39 04/12/20 15:45 Temperature Temperature Source Pulse Rate 62 63 63 Pulse Rate from SpO2 Sensor 62 62 63 Respiratory Rate 12 15 18 Blood Pressure 83/47 L 96/53 L Blood Pressure Mean 55 59 Pulse Oximetry 97 98 97 Oxygen Delivery Method Sepsis Recent Fever Within 48 Hours Sepsis New/Unexplained Change in Mental Status Sepsis Action Taken by Nursing 04/12/20 15:46 04/12/20 16:00 04/12/20 16:01 Temperature Temperature Source Pulse Rate 64 63 63 Pulse Rate from SpO2 Sensor 64 63 64 Respiratory Rate 16 13 13 Blood Pressure 89/51 L Blood Pressure Mean 56 Pulse Oximetry 98 97 96 Oxygen Delivery Method Sepsis Recent Fever Within 48 Hours Sepsis New/Unexplained Change in Mental Status Sepsis Action Taken by Nursing 04/12/20 16:15 04/12/20 16:16 04/12/20 16:19 Temperature Temperature Source Pulse Rate 64 66 63 Pulse Rate from SpO2 Sensor 68 66 63 Respiratory Rate 13 18 13 Blood Pressure 88/51 L 84/49 L Blood Pressure Mean 54 53 Pulse Oximetry 97 97 96 Oxygen Delivery Method Sepsis Recent Fever Within 48 Hours Sepsis New/Unexplained Change in Mental Status Sepsis Action Taken by Shelter Medications Current Medication List: was personally reviewed by me Laboratory Data Attestation: I reviewed the patient's lab results. Result diagrams: 04/12/20 12:16 04/12/20 12:16 Lab Results 04/12/20 04/12/20 04/12/20 Range/Units 12:16 12:16 12:16 WBC 4.26 L (4.8-10.8) K/uL RBC 3.59 L (4.2-5.4) M/uL Hgb 11.9 L (12.0-16.0) g/dL Hct 34.8 L (37-47) % MCV 96.9 (80-100) fL MCH 33.1 (25-34) pg MCHC 34.2 (32-36) g/dL RDW Std Deviation 48.5 H (36.4-46.3) fL RDW Coeff of Christophe 13.7 (11.5-14.5) % Plt Count 122 L (130-400) K/uL MPV 10.8 H (7.4-10.4) fL Immature Gran % (Auto) 0.0 % Neut % (Auto) 90.2 % Lymph % (Auto) 6.1 % [place] % (Auto) 3.5 % Eos % (Auto) 0.2 % Baso % (Auto) 0.0 % Neut # (Auto) 3.84 (1.4-6.5) K/uL Lymph # (Auto) 0.26 L (1.2-3.4) K/uL [place] # (Auto) 0.15 (0.11-0.59) K/uL Eos # (Auto) 0.01 (0-0.5) K/uL Baso # (Auto) 0.00 (0-0.2) K/uL Immature Gran # (Auto) 0.00 (0.00-0.02) K/uL Giant Platelets 1+ PT 11.9 (9.0-12.0) Seconds INR 1.1 (0.9-1.1) APTT 31.6 H (21.0-31.0) Seconds PTT Ratio 1.1 Sodium 135 L (136-145) mmol/L Potassium 3.4 L (3.5-5.1) mmol/L Chloride 100 (98-107) mmol/L Carbon Dioxide 34 H (21-32) mmol/L Anion Gap 1.0 L (3-11) BUN 14 (7-18) mg/dl Creatinine 0.48 L (0.6-1.2) mg/dl Est Cr Clr Drug Dosing 74.4 ml/min Est GFR ( Amer) 109.7 Est GFR (Non-Af Amer) 94.6 BUN/Creatinine Ratio 28.8 H (10-20) Glucose 170 H (70-99) mg/dl Lactate (0.4-2.0) mmol/L Calcium 9.2 (8.5-10.1) mg/dl Magnesium 2.3 (1.8-2.4) mg/dl Total Bilirubin 0.3 (0.2-1) mg/dl AST 33 (15-37) U/L ALT 53 (12-78) U/L Alkaline Phosphatase 71 (45-117) U/L Total Creatine Kinase 200 H (26-192) U/L Troponin I < 0.015 (0-0.045) ng/ml Total Protein 5.9 L (6.4-8.2) gm/dl Albumin 3.1 L (3.4-5.0) gm/dl Globulin 2.8 (2.5-4.0) gm/dl Albumin/Globulin Ratio 1.1 (0.9-2) Procalcitonin (0-0.5) ng/ml TSH 7.130 H (0.300-4.500) uIu/ml Free T4 1.27 (0.8-1.6) ng/dl Free T3 (2.3-4.2) pg/ml Random Cortisol mcg/dl Urine Color Urine Appearance (Clear) Urine pH (4.5-7.5) Ur Specific [place] (1.000-1.030) Urine Protein (Negative) Urine Glucose (UA) (Negative) Urine Ketones (Negative) Urine Blood (Negative) Urine Nitrite (Negative) Urine Bilirubin (Negative) Urine Urobilinogen (Negative) Ur Leukocyte Esterase (Negative) Urine WBC (Auto) (0-5) /hpf Urine RBC (Auto) (0-4) /hpf U Hyaline Cast (Auto) (0-5) /lpf U Epithel Cells (Auto) (0-5) /lpf Urine Bacteria (Auto) (Negative) Ur Renal Epithelial Cell Calcium Oxalate Crystal (None Prsent) Urine Mucus (None Prsent) COVID-19 Eval Order Influ A Molecular Assay (Negative) Influ B Molecular Assay (Negative) SARS-CoV-2, RNA, NAAT (NEGATIVE) 04/12/20 04/12/20 04/12/20 Range/Units 12:16 12:16 12:16 WBC (4.8-10.8) K/uL RBC (4.2-5.4) M/uL Hgb (12.0-16.0) g/dL Hct (37-47) % MCV (80-100) fL MCH (25-34) pg MCHC (32-36) g/dL RDW Std Deviation (36.4-46.3) fL RDW Coeff of Christophe (11.5-14.5) % Plt Count (130-400) K/uL MPV (7.4-10.4) fL Immature Gran % (Auto) % Neut % (Auto) % Lymph % (Auto) % [place] % (Auto) % Eos % (Auto) % Baso % (Auto) % Neut # (Auto) (1.4-6.5) K/uL Lymph # (Auto) (1.2-3.4) K/uL [place] # (Auto) (0.11-0.59) K/uL Eos # (Auto) (0-0.5) K/uL Baso # (Auto) (0-0.2) K/uL Immature Gran # (Auto) (0.00-0.02) K/uL Giant Platelets PT (9.0-12.0) Seconds INR (0.9-1.1) APTT (21.0-31.0) Seconds PTT Ratio Sodium (136-145) mmol/L Potassium (3.5-5.1) mmol/L Chloride (98-107) mmol/L Carbon Dioxide (21-32) mmol/L Anion Gap (3-11) BUN (7-18) mg/dl Creatinine (0.6-1.2) mg/dl Est Cr Clr Drug Dosing ml/min Est GFR ( Amer) Est GFR (Non-Af Amer) BUN/Creatinine Ratio (10-20) Glucose (70-99) mg/dl Lactate 1.4 (0.4-2.0) mmol/L Calcium (8.5-10.1) mg/dl Magnesium (1.8-2.4) mg/dl Total Bilirubin (0.2-1) mg/dl AST (15-37) U/L ALT (12-78) U/L Alkaline Phosphatase (45-117) U/L Total Creatine Kinase (26-192) U/L Troponin I (0-0.045) ng/ml Total Protein (6.4-8.2) gm/dl Albumin (3.4-5.0) gm/dl Globulin (2.5-4.0) gm/dl Albumin/Globulin Ratio (0.9-2) Procalcitonin < 0.05 (0-0.5) ng/ml TSH (0.300-4.500) uIu/ml Free T4 (0.8-1.6) ng/dl Free T3 1.88 L (2.3-4.2) pg/ml Random Cortisol 29.28 mcg/dl Urine Color Urine Appearance (Clear) Urine pH (4.5-7.5) Ur Specific [place] (1.000-1.030) Urine Protein (Negative) Urine Glucose (UA) (Negative) Urine Ketones (Negative) Urine Blood (Negative) Urine Nitrite (Negative) Urine Bilirubin (Negative) Urine Urobilinogen (Negative) Ur Leukocyte Esterase (Negative) Urine WBC (Auto) (0-5) /hpf Urine RBC (Auto) (0-4) /hpf U Hyaline Cast (Auto) (0-5) /lpf U Epithel Cells (Auto) (0-5) /lpf Urine Bacteria (Auto) (Negative) Ur Renal Epithelial Cell Calcium Oxalate Crystal (None Prsent) Urine Mucus (None Prsent) COVID-19 Eval Order Influ A Molecular Assay (Negative) Influ B Molecular Assay (Negative) SARS-CoV-2, RNA, NAAT (NEGATIVE) 04/12/20 04/12/20 04/12/20 Range/Units 12:36 12:36 12:36 WBC (4.8-10.8) K/uL RBC (4.2-5.4) M/uL Hgb (12.0-16.0) g/dL Hct (37-47) % MCV (80-100) fL MCH (25-34) pg MCHC (32-36) g/dL RDW Std Deviation (36.4-46.3) fL RDW Coeff of Christophe (11.5-14.5) % Plt Count (130-400) K/uL MPV (7.4-10.4) fL Immature Gran % (Auto) % Neut % (Auto) % Lymph % (Auto) % [place] % (Auto) % Eos % (Auto) % Baso % (Auto) % Neut # (Auto) (1.4-6.5) K/uL Lymph # (Auto) (1.2-3.4) K/uL [place] # (Auto) (0.11-0.59) K/uL Eos # (Auto) (0-0.5) K/uL Baso # (Auto) (0-0.2) K/uL Immature Gran # (Auto) (0.00-0.02) K/uL Giant Platelets PT (9.0-12.0) Seconds INR (0.9-1.1) APTT (21.0-31.0) Seconds PTT Ratio Sodium (136-145) mmol/L Potassium (3.5-5.1) mmol/L Chloride (98-107) mmol/L Carbon Dioxide (21-32) mmol/L Anion Gap (3-11) BUN (7-18) mg/dl Creatinine (0.6-1.2) mg/dl Est Cr Clr Drug Dosing ml/min Est GFR ( Amer) Est GFR (Non-Af Amer) BUN/Creatinine Ratio (10-20) Glucose (70-99) mg/dl Lactate (0.4-2.0) mmol/L Calcium (8.5-10.1) mg/dl Magnesium (1.8-2.4) mg/dl Total Bilirubin (0.2-1) mg/dl AST (15-37) U/L ALT (12-78) U/L Alkaline Phosphatase (45-117) U/L Total Creatine Kinase (26-192) U/L Troponin I (0-0.045) ng/ml Total Protein (6.4-8.2) gm/dl Albumin (3.4-5.0) gm/dl Globulin (2.5-4.0) gm/dl Albumin/Globulin Ratio (0.9-2) Procalcitonin (0-0.5) ng/ml TSH (0.300-4.500) uIu/ml Free T4 (0.8-1.6) ng/dl Free T3 (2.3-4.2) pg/ml Random Cortisol mcg/dl Urine Color Urine Appearance (Clear) Urine pH (4.5-7.5) Ur Specific [place] (1.000-1.030) Urine Protein (Negative) Urine Glucose (UA) (Negative) Urine Ketones (Negative) Urine Blood (Negative) Urine Nitrite (Negative) Urine Bilirubin (Negative) Urine Urobilinogen (Negative) Ur Leukocyte Esterase (Negative) Urine WBC (Auto) (0-5) /hpf Urine RBC (Auto) (0-4) /hpf U Hyaline Cast (Auto) (0-5) /lpf U Epithel Cells (Auto) (0-5) /lpf Urine Bacteria (Auto) (Negative) Ur Renal Epithelial Cell Calcium Oxalate Crystal (None Prsent) Urine Mucus (None Prsent) COVID-19 Eval [facility] Influ A Molecular Assay Negative (Negative) Influ B Molecular Assay Negative (Negative) SARS-CoV-2, RNA, NAAT NEGATIVE (NEGATIVE) 04/12/20 Range/Units 12:48 WBC (4.8-10.8) K/uL RBC (4.2-5.4) M/uL Hgb (12.0-16.0) g/dL Hct (37-47) % MCV (80-100) fL MCH (25-34) pg MCHC (32-36) g/dL RDW Std Deviation (36.4-46.3) fL RDW Coeff of Christophe (11.5-14.5) % Plt Count (130-400) K/uL MPV (7.4-10.4) fL Immature Gran % (Auto) % Neut % (Auto) % Lymph % (Auto) % [place] % (Auto) % Eos % (Auto) % Baso % (Auto) % Neut # (Auto) (1.4-6.5) K/uL Lymph # (Auto) (1.2-3.4) K/uL [place] # (Auto) (0.11-0.59) K/uL Eos # (Auto) (0-0.5) K/uL Baso # (Auto) (0-0.2) K/uL Immature Gran # (Auto) (0.00-0.02) K/uL Giant Platelets PT (9.0-12.0) Seconds INR (0.9-1.1) APTT (21.0-31.0) Seconds PTT Ratio Sodium (136-145) mmol/L Potassium (3.5-5.1) mmol/L Chloride (98-107) mmol/L Carbon Dioxide (21-32) mmol/L Anion Gap (3-11) BUN (7-18) mg/dl Creatinine (0.6-1.2) mg/dl Est Cr Clr Drug Dosing ml/min Est GFR ( Amer) Est GFR (Non-Af Amer) BUN/Creatinine Ratio (10-20) Glucose (70-99) mg/dl Lactate (0.4-2.0) mmol/L Calcium (8.5-10.1) mg/dl Magnesium (1.8-2.4) mg/dl Total Bilirubin (0.2-1) mg/dl AST (15-37) U/L ALT (12-78) U/L Alkaline Phosphatase (45-117) U/L Total Creatine Kinase (26-192) U/L Troponin I (0-0.045) ng/ml Total Protein (6.4-8.2) gm/dl Albumin (3.4-5.0) gm/dl Globulin (2.5-4.0) gm/dl Albumin/Globulin Ratio (0.9-2) Procalcitonin (0-0.5) ng/ml TSH (0.300-4.500) uIu/ml Free T4 (0.8-1.6) ng/dl Free T3 (2.3-4.2) pg/ml Random Cortisol mcg/dl Urine Color Dark Yellow Urine Appearance Clear (Clear) Urine pH 5.5 (4.5-7.5) Ur Specific [place] 1.020 (1.000-1.030) Urine Protein Trace H (Negative) Urine Glucose (UA) Negative (Negative) Urine Ketones Trace H (Negative) Urine Blood Negative (Negative) Urine Nitrite Negative (Negative) Urine Bilirubin Negative (Negative) Urine Urobilinogen Negative (Negative) Ur Leukocyte Esterase 1+ H (Negative) Urine WBC (Auto) 5-10 H (0-5) /hpf Urine RBC (Auto) 0-4 (0-4) /hpf U Hyaline Cast (Auto) 5-10 H (0-5) /lpf U Epithel Cells (Auto) >30 H (0-5) /lpf Urine Bacteria (Auto) 1+ H (Negative) Ur Renal Epithelial Cell Not Reportable Calcium Oxalate Crystal Present A (None Prsent) Urine Mucus Present A (None Prsent) COVID-19 Eval Order Influ A Molecular Assay (Negative) Influ B Molecular Assay (Negative) SARS-CoV-2, RNA, NAAT (NEGATIVE) Administered Medications Discontinued Medications Sodium Chloride (Nss 1000ml) 1,000 mls @ 999 mls/hr IV .Q1H1M HENRIQUE Stop: 04/12/20 13:15 Last Infusion: 04/12/20 13:51 Dose: 0 mls/hr Documented by: [id number] Admin: 04/12/20 12:44 Dose: 999 mls/hr Documented by: [id number] Cefepime HCl (Maxipime) 2,000 mg in 20 mls @ 5 mls/min IV NOW STA; Protocol Stop: 04/12/20 12:13 Last Admin: 04/12/20 12:44 Dose: 5 mls/min Documented by: [id number] Sodium Chloride (Nss 1000ml) 1,000 mls @ 999 mls/hr IV .Q1H1M ONE Stop: 04/12/20 13:45 Last Infusion: 04/12/20 13:50 Dose: 0 mls/hr Documented by: [id number] Admin: 04/12/20 12:50 Dose: 999 mls/hr Documented by: [id number] Lactated Ringer's (Lr) 1,000 mls @ 999 mls/hr IV .Q1H1M STA Stop: 04/12/20 14:20 Last Infusion: 04/12/20 15:04 Dose: 0 mls/hr Documented by: [id number] Admin: 04/12/20 13:30 Dose: 999 mls/hr Documented by: [id number] Levothyroxine Sodium 100 mcg/ (Syringe) 5 mls @ 2 mls/min IV ONE STA Stop: 04/12/20 16:09 Last Admin: 04/12/20 16:21 Dose: 2 mls/min Documented by: [id number] Imaging Data Radiologist's Impression: XR chest 1V portable CLINICAL HISTORY: SEPSIS COMPARISON STUDY: Chest radiograph January 13, 2020. FINDINGS: Linear left basilar opacity favors atelectasis. There is no consolidation to suggest pneumonia. There is no evidence for pulmonary edema. Cardiomegaly is unchanged. No pneumothorax or pleural effusion is noted. The appearance of the chest is unchanged. IMPRESSION: No acute cardiopulmonary findings. No change in appearance of the chest. CT SCAN OF THE BRAIN WITHOUT IV CONTRAST CLINICAL HISTORY: Fall. Generalized weakness. Change in mental status. COMPARISON STUDY: CT of the brain dated 01/13/2020. TECHNIQUE: Unenhanced axial CT scan of the brain is performed from the vertex to the skull base. A dose lowering technique was utilized adhering to the principles of ALARA. CT DOSE: 614.27 mGy.cm FINDINGS: Brain parenchyma: There are age-related involutional changes noting minimal subcortical and periventricular microangiopathic change. There is no hemorrhage, mass effect, or evidence of acute territorial ischemia by CT criteria. Ya- white matter differentiation is preserved. No extra-axial fluid collection is seen. Ventricles, sulci, cisterns: Prominent secondary to involutional change. Intracranial vasculature: There is atherosclerotic calcification of the cavern ous carotid arteries. Calvarium: The skeletal structures are osteopenic. There is no depressed calv arial fracture. Sinuses and mastoids: The visualized paranasal sinuses are clear. The mastoid air cells are well pneumatized. Orbits: The bony orbits are grossly intact. There are bilateral ocular lens implants. IMPRESSION: There is no hemorrhage, mass effect, or evidence of acute territorial ischemia by CT criteria. Discharge Plan Visit Data Chief Complaint: Altered Mental Status Stated Complaint: HALUCINATING, WEAKNESS ED Provider: Richy Luevano Discharge Problem: Hypotension, Hypothermia, Bradycardia, Weakness, Acute confusion, Fall Patient Disposition: Admitted As Inpatient Condition: Fair Forms Stand Alone Forms: [facility] Prescriptions Prescriptions: No Action paliperidone [Invega] 6 mg tablet extended release 24hr 3 mg PO HS RF: 0 benztropine 1 mg tablet 0.5 mg PO BID RF: 0 donepezil 5 mg tablet 5 mg PO HS RF: 0 fluoxetine 20 mg capsule 20 mg PO PM RF: 0 levothyroxine [Synthroid] 88 mcg tablet 88 mcg PO QAM RF: 0 docusate sodium [Colace] 100 mg capsule 100 mg PO QDL RF: 0 Referrals Referrals: Pro,Cleve Sharp MD [Primary Care Provider] - Discharge Problem: Hypotension Qualifiers: Hypotension type: unspecified hypotension type Qualified Code(s): I95.9 - Hypotension, unspecified Hypothermia Qualifiers: Encounter type: initial encounter Qualified Code(s): T68.XXXA - Hypothermia, initial encounter Fall Qualifiers: Encounter type: initial encounter Qualified Code(s): W19.XXXA - Unspecified fall, initial encounter
[2020-04-12 12:39] LABS: Eosinophils # (auto) 0.01 K/uL (0-0.5); Eosinophils % (auto) 0.2 %; Hematocrit (blood only) 34.8 % (37-47); Hemoglobin 11.9 g/dL (12.0-16.0); Lymphocytes # (auto) 0.26 K/uL (1.2-3.4); Lymphocytes % (auto) 6.1 %; Mean Corpuscular Hemoglobin 33.1 pg (25-34); Mean Corpuscular Hgb Conc 34.2 g/dL (32-36); Mean Corpuscular Volume 96.9 fL (80-100); Mean Platelet Volume 10.8 fL (7.4-10.4); Monocytes # (auto) 0.15 K/uL (0.11-0.59); Monocytes % (auto) 3.5 %; Neutrophils # (auto) 3.84 K/uL (1.4-6.5); Neutrophils % (auto) 90.2 %; Platelet Count 122 K/uL (130-400); RDW Coefficient of Variation 13.7 % (11.5-14.5); RDW Standard Deviation 48.5 fL (36.4-46.3); Red Blood Count 3.59 M/uL (4.2-5.4); White Blood Count 4.26 K/uL (4.8-10.8)
[2020-04-12] MEDS ORDERED: SODIUM CHLORIDE 0.9% 1000ML 1,000 ML IV ONE (12:45)
[2020-04-12 12:50] LABS: INR 1.1 (0.9-1.1); Partial Thromboplastin Ratio 1.1; Partial Thromboplastin Time 31.6 Seconds (21.0-31.0); Prothrombin Time 11.9 Seconds (9.0-12.0)
--- NOTE | 2020-04-12 12:58 | XRay Report ---
XR chest 1V portable CLINICAL HISTORY: SEPSIS COMPARISON STUDY: Chest radiograph January 13, 2020. FINDINGS: Linear left basilar opacity favors atelectasis. There is no consolidation to suggest pneumo ghassan. There is no evidence for pulmonary edema. Cardiomegaly is unchanged. No pneumothorax or pleural effusion is noted. The appearance of the chest is unchanged. IMPRESSION: No acute cardiopulmonary findings. No change in appearance of the chest. ACT 112: Negative or not required by law. Electronically signed by: Jersey Monzon M.D. 04/12/2020 12:57 PM
[2020-04-12 13:02] LABS: Alanine Aminotransferase 53 U/L (12-78); Albumin Level 3.1 gm/dl (3.4-5.0); Aspartate Aminotransferase 33 U/L (15-37); BUN Creatinine Ratio 28.8 (10-20); Blood Urea Nitrogen 14 mg/dl (7-18); Calcium 9.2 mg/dl (8.5-10.1); Carbon Dioxide 34 mmol/L (21-32); Chloride 100 mmol/L (98-107); Creatinine Clr Calc Pharmacy 74.4 ml/min; Est GFR (African American) 109.7; Est GFR (Non-African American) 94.6; Glucose 170 mg/dl (70-99); Magnesium 2.3 mg/dl (1.8-2.4); Potassium 3.4 mmol/L (3.5-5.1); Sodium 135 mmol/L (136-145)
[2020-04-12 13:02] LABS: Appearance Urine Clear (Clear); Bilirubin Urine Negative (Negative); Blood Urine Negative (Negative); Color Urine Dark Yellow; Epithelial Cell Urine Auto >30 /lpf (0-5); Glucose Urine UA Negative (Negative); Ketones Urine Trace (Negative); Leukocyte Esterase Urine 1+ (Negative); Nitrite Urine Negative (Negative); Protein Urine Trace (Negative); RBC Urine Automated 0-4 /hpf (0-4); Urobilinogen Urine Negative (Negative); pH Urine 5.5 (4.5-7.5)
[2020-04-12 13:04] LABS: Giant Platelets 1+
[2020-04-12 13:05] LABS: Influenza A virus by PCR Negative (Negative)
[2020-04-12 13:06] LABS: Influenza B virus by PCR Negative (Negative)
[2020-04-12 13:11] LABS: Mucus Urine Present (None Prsent)
[2020-04-12 13:12] LABS: Bacteria Urine Automated 1+ (Negative); Calcium Oxalate Crystals Urine Present (None Prsent)
[2020-04-12 13:13] LABS: Albumin Globulin Ratio 1.1 (0.9-2); Alkaline Phosphatase 71 U/L (45-117); Bilirubin,Total 0.3 mg/dl (0.2-1); Creatine Kinase 200 U/L (26-192); Globulin 2.8 gm/dl (2.5-4.0); Total Protein 5.9 gm/dl (6.4-8.2); Troponin I < 0.015 ng/ml (0-0.045)
[2020-04-12] MEDS ORDERED: LACTATED RINGER'S 1,000 ML IV STA (13:20)
[2020-04-12 13:27] LABS: T4 Free Thyroxine 1.27 ng/dl (0.8-1.6)
[2020-04-12 15:23] LABS: Cortisol Random 29.28 mcg/dl; T3 Free 1.88 pg/ml (2.3-4.2)
--- NOTE | 2020-04-12 15:35 | CT Scan Report ---
CT SCAN OF THE BRAIN WITHOUT IV CONTRAST CLINICAL HISTORY: Fall. Generalized weakness. Change in mental status. COMPARISON STUDY: CT of the brain dated 01/13/2020. TECHNIQUE: Unenhanced axial CT scan of the brain is performed from the vertex to the skull base. A do se lowering technique was utilized adhering to the principles of ALARA. CT DOSE: 614.27 mGy.cm FINDINGS: Brain parenchyma: There are age-related involutional changes noting minimal subcortical and perivent ricular microangiopathic change. There is no hemorrhage, mass effect, or evidence of acute territoria l ischemia by CT criteria. Ya-white matter differentiation is preserved. No extra-axial fluid colle ction is seen. Ventricles, sulci, cisterns: Prominent secondary to involutional change. Intracranial vasculature: There is atherosclerotic calcification of the cavernous carotid arteries. Calvarium: The skeletal structures are osteopenic. There is no depressed calvarial fracture. Sinuses and mastoids: The visualized paranasal sinuses are clear. The mastoid air cells are well pneu matized. Orbits: The bony orbits are grossly intact. There are bilateral ocular lens implants. IMPRESSION: There is no hemorrhage, mass effect, or evidence of acute territorial ischemia by CT nghia ayala. ACT 112: Negative or not required by law. Electronically signed by: Richy Carrasco M.D. 04/12/2020 3:34 PM
[2020-04-12] MEDS ORDERED: LEVOTHYROXINE SODIUM 100 MCG in SYRINGE 0 ML IV STA (16:07)
--- NOTE | 2020-04-12 16:17 | History & Physical Report ---
Date of Service April 12, 2020 Assessment & Plan (1) Altered mental status: Admission and Anticipated Discharge Date Admission Date: The cause of the patient's altered mental status has not clearly been ascertained at this time. We will therefore proceed as follows: Patient will be admitted to telemetry for monitoring of her cardiac rhythm. We will hydrate her gently with maintenance IV fluids Due to the abnormalities of her thyroid labs we will give her a dose of 100 mcg of intravenous Synthroid. We will then place her on her usual oral dose. As random cortisol level is noted to be within normal range we will not administer intravenous steroids at this time. Due to concern for urinary tract infection patient is already received a dose of cefepime. We will continue this medication and await urine cultures with adjustments of antibiotics to be made accordingly. We will await blood culture results. Will adjust antibiotics based on these results if necessary. At the present time there is not appear to be any additional infectious etiology of her clinical situation. As noted she has had a head CT that did not show any acute intracranial findings. Due to her abdominal distention and the reported issues with constipation noted by her daughter we will obtain a CT scan of her abdomen & pelvis We will utilize Lovenox for DVT prevention I did discuss CODE STATUS with the patient's daughter. She notes in the event of cardiopulmonary arrest she will be a level 5 DO NOT RESUSCITATE. She did note that other modalities including intravenous fluids vasopressors and antibiotics are acceptable modalities in her treatment. History of Present Illness Chief Complaint: Altered mental status Primary Care Provider: Cleve Hurst MD This is a 79-year-old female who presents to the emergency department by private vehicle due to altered mental status. Due to the patient's clinical condition I cannot really obtain much meaningful history from her. History was obtained from discussion with the staff in the emergency department as well as discussion with her daughter who I was able to contact by phone. Daughter notes that she was recently hospitalized in [facility] for 6 weeks in February 2020. She notes that her mother was treated for urinary tract infection at that time. She also notes that she was started on numerous antidepressants prior to discharge. Since returning home from [facility] she feels as though her mother has been clinically deteriorating. Patient's daughter feels that the doses of her antidepressant medications have been too high and she has been conferencing with the physician the previously treating physicians and they have been adjusting the medicines. Patient's daughter notes that she lives alone however she has been spending at least 12 hours a day with her mother ensuring that she is taking care of. According to her daughter she has been taking all of her medications as prescribed. She feels as though she has been eating normally but feels as though she may not be drinking enough. Over the past several days she notes that her speech has been more slurred and her mental status continues to be more altered. In addition she notes that her mother's abdomen seem to be somewhat more protuberant than usual and over the past several days her mother has had issues with constipation. There have been no reported fevers. Her daughter did not note any recent falls that her mother has had. She does note that she ambulates with a walker and has been increasingly unsteady over the past several days. No additional history could be obtained. In the emergency department a CT scan of the head did not review any acute intra cranial process chest x-ray was without findings concerning for pneumonia or congestive heart failure. CBC revealed white blood cell count was 4.2 hemoglobin hematocrit were 11.9 and 34.8 and platelet count was 122,000. Her sodium was 135 potassium 3.4. Her BUN and creatinine were 14 and 0.4. There were no significant elevation of her LFTs. Her cardiac enzymes were not elevated but her total CK level was noted to be 200 which was slightly elevated. Random cortisol level was within the normal range. She was noted to have an elevated TSH at 7.1 and a free T4 level was normal at 1.27. Did have a free T3 level that was noted to be slightly low at 1.8. Urinalysis was concerning for urinary tract infection. A Covid test was performed which was noted to be negative. The patient was also tested for influenza a and B which were also negative. There was a mention that at time of arrival to the emergency department the patient was noted to be hypothermic as well as hypotensive. Her systolic blood pressure was reportedly in the 60s upon arrival and she has received 3 L of intravenous fluid and her blood pressure has improved into the 90s. At the time of my exam the patient again could not provide any meaningful history. She was in no distress and did not offer any specific complaints. Allergies Allergy/AdvReac Type Severity Reaction Status Date / Time midazolam AdvReac Mild confused, Verified 04/12/20 14:07 off balence EPINEPHrine Base AERS Allergy Unknown Unknown Uncoded 04/12/20 14:07 Home Medications Medication Instructions Recorded Confirmed Type benztropine 1 mg tablet 0.5 mg PO BID 02/28/20 04/12/20 History paliperidone 6 mg tablet,extended 3 mg PO HS 02/28/20 04/12/20 History release 24 hr docusate sodium [Colace] 100 mg PO QDL 04/12/20 04/12/20 History donepezil 5 mg PO HS 04/12/20 04/12/20 History fluoxetine 20 mg PO PM 04/12/20 04/12/20 History levothyroxine [Synthroid] 88 mcg PO QAM 04/12/20 04/12/20 History Past Med/Surg History Medical History History of vitamin D deficiency Hypothyroidism, postablative IBS (irritable bowel syndrome) Migraine Mood disorder Osteoporosis Protein calorie malnutrition Sarcoid Surgical History History of sigmoidoscopy S/P breast biopsy S/P hysterectomy with oophorectomy S/P subtotal thyroidectomy S/P thoracotomy Family History Mother Cardiovascular disease Diabetes Hypothyroidism Father Cardiovascular disease Diabetes Hypothyroidism Myocardial infarction Other Congestive heart failure Hypertension Denies family history of Colon cancer Ovarian cancer Prostate cancer Breast cancer Social History Smoking Status: Never smoker Second Hand Exposure: No; Do You Dip or Chew Tobacco: No; Tobacco Cessation Education Requested by Patient: No Hx Alcohol Use: No Hx Substance Use: No Preferred Language: Azerbaijani Communication Ability: Impaired Delivery Driver Required: No Beliefs That Will Affect Care: None marital status: Current Living Situation: Alone Current Living Situation Comment: friend with patient in ED current occupational status: retired Other Information That Helps Us Care for You: No Feels Safe at Home: Yes Safety Concerns: Feels Safe At This Time Physical Activity Frequency: Does not Exercise Seatbelt Use: always Assistive Devices: Glasses Review of Systems Review of Systems: Unobtainable due to cognitive status The majority of the review of systems is unobtainable due to clinical status however some information which will be listed below was obtained from the patient's daughter who helps care for her. Constitutional: no fever Respiratory: no cough Gastrointestinal: + constipation; no nausea, no vomiting and no diarrhea/loose stools Integumentary: no rash Neurologic: + unsteadiness; no falls Psychiatric: + confusion Physical Exam Physical Exam: Prior to my arrival the nursing staff had turned the patient. They noted that there were no sacral decubitus ulcers. They did note that there was a small amount of redness in the sacral area and this was covered with a protective dressing. Constitutional: + altered mental status; no acute distress Eyes: PERRL; no conjunctival abnormality ENMT: Ears: no hearing impairment Neck: trachea midline Respiratory: normal respiratory effort; no respiratory distress and no labored breathing No wheezing breath sounds are slightly decreased at the bases Cardiovascular: Rate/Rhythm: regular rate and regular rhythm Vessels: dorsalis pedis pulses present and radial pulses present Gastrointestinal (Abdomen): Percussion/Palpation: abdomen nontender Mild distention noted, no pain with palpation Musculoskeletal: No calf tenderness, 1+ lower extremity edema noted bilaterally. No foot wounds or heel ulcers were noted. Skin: no rashes, warm and dry Neurologic: The patient can follow simple commands and move all extremities without difficulty. Her speech is somewhat slurred. Psychiatric: The patient is alert to person she is confused to place, time, and situation. Genitourinary: A Browning catheter was in place. This was placed by the emergency room staff during this admission. Results & Data Results & Data ([facility]) Vital Signs (Past 12 Hours) Vital Signs Temp Pulse Resp BP Pulse Ox 04/12/20 13:34 43 L 12 79/48 L 99 04/12/20 13:25 31.1 C L 04/12/20 13:20 53 L 11 L 86/60 L 99 04/12/20 13:18 52 L 9 L 89/58 L 99 04/12/20 13:16 57 L 11 L 76/52 L 99 04/12/20 13:10 13 87/56 L 98 04/12/20 13:00 50 L 11 L 86/58 L 98 04/12/20 12:56 51 L 11 L 93/58 L 98 04/12/20 12:45 66 13 70/55 L 99 04/12/20 12:43 15 L 15 71/56 L 99 04/12/20 12:34 33 L 12 75/50 L 98 04/12/20 12:20 40 L 7 L 86/56 L 100 04/12/20 12:10 99 04/12/20 12:02 31.2 C L 04/12/20 11:54 29.5 C L 47 L 16 93/61 L 100 Supervising Physician Co-Signing Physician Notes I personally saw and examined the patient. I verified all osorio points and agree with CHRIS Perez with the following exceptions and/or additions: 79-year-old female with progressively worsening altered mental status since psych hospitalization in January. O/E Frail appearing, Chest CTAB, HS RRR, PERRL, not orientated x3 but saying appropriate words and not slurred. Moving all 4 limbs. A/P Altered mental status - Suspect secondary to hypothermia +/- UTI. Daughter who is power of mergers and acquisitions attorney request removing her benztropine and paliperidone which under the circumstances appears reasonable. Consider psych consult if patient's mental status improves. Will treat for delirium and psychosis in the mean time with zyprexa PRN. TSH above normal therefore will give one dose of IV l evothyroxine 100 mcg although given values do not suspect myxedema crisis is the cause of her altered mental status. Acute UTI - possible, cover with IV cefepime pending blood and urine cultures Hypothermia -improving with a bear hugger. Possible UTI as above. Bradycardia - secondary to hypothermia, likely contributing towards initial hypotension. Now improved with bear hugger. Hypotension - suspect initially worsened due to initial rewarming. Given lactate normal and improving/stable with IV fluids and further rewarming will avoid vasopressors at the current time. PG Care Time/CCT Total # of Minutes Spent Total Time Spent with Patient: Total time spent is greater than 50% in coordination of care (as documented) at patient's floor/unit and/or counseling patient: Coding Level of Care Code 60548 Initial Inpt Care Lvl 3 Diagnoses Altered mental status R41.82
--- NOTE | 2020-04-12 17:31 | CT Scan Report ---
CT SCAN OF THE ABDOMEN AND PELVIS WITHOUT IV CONTRAST CLINICAL HISTORY: Abdominal distention. Hypotension. COMPARISON STUDY: Abdominal CT dated 10/19/2019. TECHNIQUE: CT scan of the abdomen and pelvis is performed from the lung bases to the proximal femora. Images are reviewed in the axial, sagittal, and coronal planes. IV contrast was not administered for this examination. Note that the examination was performed in suboptimal fashion without oral and IV contrast. The examination is also degraded by motion artifact, as well as by streak artifact from the arms which could not be elevated above the abdomen. A dose lowering technique was utilized adhering to the principles of ALARA. CT DOSE: 378.88 mGy.cm FINDINGS: Lung bases: The heart is enlarged and without pericardial effusion. There are trace pleural effusions with dependent consolidation. Liver: Evaluation of the liver is degraded by streak artifact. The unenhanced liver is normal in size , contour, and attenuation. There is no intrahepatic biliary ductal dilatation. Gallbladder: Grossly unremarkable. Spleen: Normal in size and attenuation. Pancreas: The unenhanced pancreas is atrophic and grossly unremarkable. This is not well assessed. Adrenal glands: Unremarkable. Kidneys: The unenhanced kidneys demonstrate cortical atrophy and are without hydronephrosis. There ar e least 2 punctate nonobstructing left renal calculi. No right renal calculi are identified. There is no evidence of contour deforming renal mass lesion. Abdominal vasculature: The abdominal aorta is normal in course and caliber noting moderate atheroscle rotic calcification. Bowel: There is rectosigmoid fecal impaction and moderate to severe constipation. Wall thickening is noted throughout the left colon, greatest involving the rectosigmoid. There is significant perirectal soft tissue inflammation. The appendix is not visualized. Peritoneum: There is no intraperitoneal free air or abdominal ascites. There is mild diffuse mesenter ic edema. Lymphadenopathy: None. Pelvic viscera: The bladder is partially decompressed around a Browning catheter. Intraluminal gas is li naomi related to instrumentation. The uterus is surgically absent. No adnexal lesion is seen. Skeletal structures: The skeletal structures are osteopenic. There is moderate to advanced lumbosacra l spondylosis as well as scoliosis. No lytic or blastic lesions are seen. Soft tissues: The patient is cachectic. IMPRESSION: 1. Significantly suboptimal examination without oral and IV contrast. The examination is also comprom ised by streak and motion artifact and patient cachexia. 2. There is rectosigmoid fecal impaction with moderate to severe constipation. 3. Wall thickening is seen throughout the left colon, greatest involving the rectosigmoid. There is s ignificant perirectal inflammation. Correlate clinically for evidence of a nonspecific proctocolitis (likely stercoral). 4. Cardiomegaly. 5. Left-sided nephrolithiasis. 6. Trace pleural effusions with dependent consolidation. This likely represents atelectasis. Correlat e clinically for evidence of pneumonia/aspiration pneumonitis. 7. Additional findings as above. ACT 112: Negative or not required by law. Electronically signed by: Richy Carrasco M.D. 04/12/2020 5:30 PM
[2020-04-12] MEDS: NSS + 20MEQ KCL 20 MEQ/1,000 ML BAG IV SCH (18:30)
[2020-04-12] MEDS: SODIUM CHLORIDE 0.9% 1000ML 1,000 ML IV SCH ×2 (18:31→19:00)
[2020-04-12] MEDS ORDERED: ACETAMINOPHEN 1,000 MG/100 ML VIAL IV PRN (19:58)
[2020-04-12] MEDS ORDERED: ONDANSETRON INJ 2 MG/ML 2 ML VIAL IV PRN (19:58)
[2020-04-12] MEDS: FLUoxetine HCL 20 MG CAP PO SCH (20:17)
[2020-04-12] MEDS: DONEPEZIL HCL 5 MG TAB PO SCH (20:18)
[2020-04-12] MEDS ORDERED: OLANZapine ZYDIS 5 MG ORALLY DIS. TAB PO PRN (20:19)
[2020-04-12] MEDS ORDERED: OLANZapine 10 MG/2.1 ML SDV IM PRN (20:19)
[2020-04-12] MEDS ORDERED: BENZTROPINE MESYLATE 0.5 MG TAB PO SCH (21:00)
[2020-04-12] MEDS ORDERED: PALIPERIDONE 3 MG TABCR PO SCH (21:00)
[2020-04-12] MEDS: ALBUMIN 25% 12.5 GM/50 ML VIAL IV SCH ×2 (21:34→21:49)
[2020-04-13] MEDS: CEFEPIME 2,000 MG in SYRINGE 0 ML IV SCH ×2 (00:28→12:16)
--- NOTE | 2020-04-13 06:46 | Electrocardiogram Report ---
Test Reason : Blood Pressure : / mmHG Vent. Rate : 046 BPM Atrial Rate : 234 BPM P-R Int : 260 ms QRS Dur : 082 ms QT Int : 574 ms P-R-T Axes : 000 009 058 degrees QTc Int : 502 ms Poor data quality, interpretation may be adversely affected Sinus bradycardia with 1st degree A-V block Voltage criteria for left ventricular hypertrophy Cannot rule out Septal infarct (cited on or before 28-OCT-2019) Prolonged QT Abnormal ECG When compared with ECG of 28-OCT-2019 03:51, Vent. rate has decreased BY [address] elevation now present in Anterolateral leads QT has lengthened Confirmed by Nicolás Amaya ([id number]) on 04/13/2020 6:45:47 AM Referred By: Confirmed By:Nicolás Amaya
--- NOTE | 2020-04-13 06:49 | Electrocardiogram Report ---
Test Reason : Blood Pressure : / mmHG Vent. Rate : 052 BPM Atrial Rate : 052 BPM P-R Int : 246 ms QRS Dur : 082 ms QT Int : 550 ms P-R-T Axes : 078 015 083 degrees QTc Int : 511 ms Sinus bradycardia with 1st degree A-V block Voltage criteria for left ventricular hypertrophy Cannot rule out Septal infarct (cited on or before 28-OCT-2019) Prolonged QT Abnormal ECG When compared with ECG of 12-APR-2020 12:28, No significant change Confirmed by Nicolás Amaya ([id number]) on 04/13/2020 6:49:09 AM Referred By: REFERRED SELF Confirmed By:Nicolás Amaya
[2020-04-13 07:47] LABS: Hematocrit (blood only) 32.9 % (37-47); Hemoglobin 11.2 g/dL (12.0-16.0); Immature Granulocytes # (auto) 0.01 K/uL (0.00-0.02); Immature Granulocytes % (auto) 0.2 %; Lymphocytes # (auto) 0.28 K/uL (1.2-3.4); Lymphocytes % (auto) 6.6 %; Mean Corpuscular Hemoglobin 33.2 pg (25-34); Mean Corpuscular Volume 97.6 fL (80-100); Mean Platelet Volume 11.4 fL (7.4-10.4); Monocytes # (auto) 0.37 K/uL (0.11-0.59); Monocytes % (auto) 8.7 %; Neutrophils # (auto) 3.61 K/uL (1.4-6.5); Neutrophils % (auto) 84.5 %; Platelet Count 132 K/uL (130-400); RDW Coefficient of Variation 14.1 % (11.5-14.5); RDW Standard Deviation 49.7 fL (36.4-46.3); Red Blood Count 3.37 M/uL (4.2-5.4); White Blood Count 4.27 K/uL (4.8-10.8)
[2020-04-13 08:26] LABS: Albumin Level 2.8 gm/dl (3.4-5.0); BUN Creatinine Ratio 15.2 (10-20); Calcium 8.8 mg/dl (8.5-10.1); Creatinine Clr Calc Pharmacy 82.5 ml/min; Est GFR (African American) 113.7; Est GFR (Non-African American) 98.1; Magnesium 1.6 mg/dl (1.8-2.4); Potassium 3.6 mmol/L (3.5-5.1)
[2020-04-13 08:28] LABS: Albumin Globulin Ratio 1.2 (0.9-2); Bilirubin,Total 0.5 mg/dl (0.2-1); Globulin 2.3 gm/dl (2.5-4.0); Total Protein 5.1 gm/dl (6.4-8.2)
[2020-04-13] MEDS ORDERED: ENOXAPARIN INJ 40 MG/0.4 ML SYR SQ SCH (09:00)
[2020-04-13] MEDS: HEPARIN SOD 5,000 UNIT/0.5 ML VIAL SQ SCH ×2 (09:08→21:29)
[2020-04-13] MEDS: LEVOTHYROXINE SODIUM 88 MCG TABLET PO SCH (09:08)
[2020-04-13] MEDS: D5NSS + 20MEQ KCL 20 MEQ/1,000 ML BAG IV SCH ×2 (09:09→20:56)
[2020-04-13] MEDS: MAGNESIUM SULFATE / D5W 1 GM/100 ML BAG IV SCH ×2 (09:14→11:12)
[2020-04-13] MEDS ORDERED: INFLUENZA VACCINE HIGH DOSE 65+ 0.7 ML SYR IM ONE (09:30)
[2020-04-13] MEDS: DOCUSATE SODIUM 100 MG CAP PO SCH (11:13)
--- NOTE | 2020-04-13 14:23 | Hospitalist Progress Note ---
Date of Service April 13, 2020 Assessment & Plan (1) Encephalopathy: Suspected combined toxic and metabolic. Will discontinue paliperidone antipsychotic due to its many side effects. Treat suspected UTI. Provide supportive care. IV fluids. She is currently n.p.o. due to mental status ch anges and will remain on IV fluids for now. Present on Admission?: Yes (2) Hypotension: Present on admission. Resolved with IV fluids Present on Admission?: Yes (3) Hypothermia: Present on admission. Now resolved Present on Admission?: Yes (4) Ambulatory dysfunction: OT and PT assessments when able Present on Admission?: Yes (5) DVT prophylaxis: Heparin or Lovenox subcu (6) Hypothyroidism, postablative: Check thyroid levels and continue replacement therapy Disposition: To be determined Admission and Anticipated Discharge Date Admission Date: April 12, 2020 Subjective The patient is lethargic but confused and may have baseline dementia. No apparent distress Review of Systems Review of Systems: Unobtainable due to cognitive status Physical Exam Physical Exam: General-lethargic and confused. She may have baseline de mentia. No acute distress HEENT-head atraumatic and normocephalic, pupils equal and reactive to light, extraocular muscles intact Neck-trachea midline Chest-clear to auscultation anteriorly . No rales wheezing or rhonchi Cardiac-regular rate and rhythm, normal S1 and S2 Abdomen-normal bowel sounds, no hepatosplenomegaly, no discernible tenderness Extremities-no cyanosis, clubbing, or edema Neuro-lethargic. No apparent focal deficits Results & Data Results & Data ([facility]) Vital Signs (Past 12 Hours) Vital Signs Temp Pulse Resp BP Pulse Ox 04/13/20 11:49 36.6 C 70 19 104/65 95 04/13/20 07:58 36.8 C 91 H 21 107/66 95 04/13/20 04:11 36.6 C 87 19 92/53 L 96 Laboratory Results 04/13/20 06:10 04/13/20 06:10 PG Care Time/CCT Total # of Minutes Spent Total Time Spent with Patient: Total time spent is greater than 50% in coordination of care (as documented) at patient's floor/unit and/or counseling patient: Coding Level of Care Code 09659 Subseq Hosp Care Lvl 3 Diagnoses Encephalopathy G93.40 Hypotension I95.9 Hypotension type: unspecified hypotension type Hypothermia T68.XXXA Encounter type: initial encounter Ambulatory dysfunction R26.2 DVT prophylaxis Z29.9 Hypothyroidism, postablative E89.0 (1) Hypotension Hypotension type: unspecified hypotension type Qualified Code(s): I95.9 - Hypotension, unspecified (2) Hypothermia Encounter type: initial encounter Qualified Code(s): T68.XXXA - Hypothermia, initial encounter
[2020-04-13] MEDS: NSS + 20MEQ KCL 20 MEQ/1,000 ML BAG IV SCH (18:32)
[2020-04-13] MEDS: DONEPEZIL HCL 5 MG TAB PO SCH (20:56)
[2020-04-13] MEDS: FLUoxetine HCL 20 MG CAP PO SCH (20:56)
[2020-04-14] MEDS: CEFEPIME 2,000 MG in SYRINGE 0 ML IV SCH ×2 (00:15→12:04)
[2020-04-14] MEDS: LEVOTHYROXINE SODIUM 88 MCG TABLET PO SCH (06:30)
[2020-04-14 07:53] LABS: Basophils # (auto) 0.01 K/uL (0-0.2); Basophils % (auto) 0.3 %; Eosinophils # (auto) 0.02 K/uL (0-0.5); Eosinophils % (auto) 0.6 %; Hematocrit (blood only) 32.6 % (37-47); Hemoglobin 11.3 g/dL (12.0-16.0); Lymphocytes # (auto) 0.42 K/uL (1.2-3.4); Lymphocytes % (auto) 11.6 %; Mean Corpuscular Hemoglobin 33.8 pg (25-34); Mean Corpuscular Hgb Conc 34.7 g/dL (32-36); Mean Corpuscular Volume 97.6 fL (80-100); Mean Platelet Volume 11.1 fL (7.4-10.4); Monocytes # (auto) 0.51 K/uL (0.11-0.59); Neutrophils # (auto) 2.67 K/uL (1.4-6.5); Neutrophils % (auto) 73.5 %; Platelet Count 111 K/uL (130-400); RDW Standard Deviation 49.7 fL (36.4-46.3); Red Blood Count 3.34 M/uL (4.2-5.4); White Blood Count 3.63 K/uL (4.8-10.8)
[2020-04-14 08:24] LABS: BUN Creatinine Ratio 15.2 (10-20); Calcium 8.3 mg/dl (8.5-10.1); Creatinine Clr Calc Pharmacy 89.3 ml/min; Est GFR (African American) 117.4; Est GFR (Non-African American) 101.3; Magnesium 2.1 mg/dl (1.8-2.4); Potassium 3.6 mmol/L (3.5-5.1)
[2020-04-14] MEDS: HEPARIN SOD 5,000 UNIT/0.5 ML VIAL SQ SCH ×2 (08:53→21:15)
[2020-04-14] MEDS: DOCUSATE SODIUM 100 MG CAP PO SCH (11:28)
[2020-04-14] MEDS: D5NSS + 20MEQ KCL 20 MEQ/1,000 ML BAG IV SCH (12:04)
--- NOTE | 2020-04-14 17:55 | Hospitalist Progress Note ---
Date of Service April 14, 2020 Assessment & Plan (1) Encephalopathy: She is currently n.p.o. due to mental status changes and will remain on IV fluids for now. minimal change in last 24 hours Stable, unclear etiology Repeat xrays and labs in the am. Present on Admission?: Yes (2) Hypotension: Present on admission. Resolved with IV fluids (3) Ambulatory dysfunction: OT and PT assessments when able Unable to asses at this time due to above encephalopathy Present on Admission?: Yes (4) DVT prophylaxis: Heparin or Lovenox subcu (5) Hypothyroidism, postablative: Check thyroid levels and continue replacement therapy Disposition: To be determined Present on Admission?: Yes (6) Constipation: seen on CT scan, no reported BM. benign abdominal exam Admission and Anticipated Discharge Date Admission Date: April 12, 2020 Subjective Unable to obtain history due to pt condition. Discussed with nursing minimal change. Pt opens her eyes but not able to answer questions. Review of Systems Review of Systems: Unobtainable due to mental health condition and Unobtainable due to reduced consciousness Physical Exam Constitutional: + ill appearing, + frail appearing and + lethargic Respiratory: normal respiratory effort; no respiratory distress and no labored breathing Cardiovascular: RRR, no murmur, no edema Gastrointestinal (Abdomen): normal bowel sounds, soft, nontender, no hepatos plenomegaly Neurologic: + obtunded Results & Data Results & Data ([facility]) Vital Signs (Past 12 Hours) Vital Signs Temp Pulse Pulse Resp BP Pulse Ox 04/14/20 14:57 36.8 C 72 16 118/76 96 04/14/20 14:52 66 04/14/20 11:19 36.8 C 77 18 104/62 93 04/14/20 07:29 36.8 C 75 18 113/69 97 04/14/20 07:00 68 Laboratory Results Laboratory Results - last 24 hr 04/14/20 04/14/20 07:25 07:25 WBC 3.63 L RBC 3.34 L Hgb 11.3 L Hct 32.6 L MCV 97.6 MCH 33.8 MCHC 34.7 RDW Std Deviation 49.7 H RDW Coeff of Christophe 14.0 Plt Count 111 L MPV 11.1 H Immature Gran % (Auto) 0.0 Neut % (Auto) 73.5 Lymph % (Auto) 11.6 [place] % (Auto) 14.0 Eos % (Auto) 0.6 Baso % (Auto) 0.3 Neut # (Auto) 2.67 Lymph # (Auto) 0.42 L [place] # (Auto) 0.51 Eos # (Auto) 0.02 Baso # (Auto) 0.01 Immature Gran # (Auto) 0.00 Sodium 137 Potassium 3.6 Chloride 105 Carbon Dioxide 28 Anion Gap 4.0 BUN 6 L Creatinine 0.39 L Est Cr Clr Drug Dosing 89.3 Est GFR ( Amer) 117.4 Est GFR (Non-Af Amer) 101.3 BUN/Creatinine Ratio 15.2 Glucose 106 H Calcium 8.3 L Magnesium 2.1 Medications Administered Current Inpatient Medications Docusate Sodium (Docusate Sodium 100 Mg Cap) 100 mg PO QDL [facility] Stop: 05/13/20 11:29 Last Admin: 04/14/20 11:28 Dose: Not Given Documented by: Donepezil HCl (Donepezil Hcl 5 Mg Tab) 5 mg PO HS [facility] Stop: 05/12/20 20:59 Last Admin: 04/13/20 20:56 Dose: Not Given Documented by: Fluoxetine HCl (Fluoxetine Hcl 20 Mg Cap) 20 mg PO PM [facility] Stop: 05/12/20 20:59 Last Admin: 04/13/20 20:56 Dose: Not Given Documented by: Heparin Sodium (Porcine) (Heparin Sod 5,000 Unit/0.5 Ml Vial) 5,000 units SQ Q12 [facility] Stop: 05/13/20 08:59 Last Admin: 04/14/20 08:53 Dose: 5,000 units Documented by: Acetaminophen (Ofirmev) 1,000 mg in 100 mls @ 400 mls/hr IV Q8H PRN PRN Reason: Pain Stop: 04/15/20 19:57 Cefepime HCl 2,000 mg/ Syringe 20 mls @ 5 mls/min IV Q12H [facility]; Protocol Stop: 04/23/20 00:00 Last Admin: 04/14/20 12:04 Dose: 5 mls/min Documented by: Potassium Chloride/Dextrose/Sod Cl (D5nss + 20meq Kcl) 20 meq in 1,000 mls @ 80 mls/hr IV .[id number] [facility] Stop: 05/13/20 09:14 Last Admin: 04/14/20 12:04 Dose: 80 mls/hr Documented by: Levothyroxine Sodium (Levothyroxine Sodium 88 Mcg Tablet) 88 mcg PO DAILYBB [facility] Stop: 05/13/20 06:29 Last Admin: 04/14/20 06:30 Dose: Not Given Documented by: Olanzapine (Olanzapine 10 Mg/2.1 Ml Sdv) 2.5 mg IM Q2H PRN PRN Reason: Delirium (at risk to self or o Stop: 05/12/20 20:29 Ondansetron HCl (Ondansetron Inj 2 Mg/Ml 2 Ml Vial) 4 mg IV Q6H PRN PRN Reason: Nausea Stop: 05/12/20 19:57 PG Care Time/CCT Total # of Minutes Spent Total Time Spent with Patient: Total time spent is greater than 50% in coordination of care (as documented) at patient's floor/unit and/or counseling patient: Coding Level of Care Code 28497 Subseq Hosp Care Lvl 2 Diagnoses Encephalopathy G93.40 Hypotension I95.9 Hypotension type: unspecified hypotension type Ambulatory dysfunction R26.2 DVT prophylaxis Z29.9 Hypothyroidism, postablative E89.0 Constipation K59.00 (1) Hypotension Hypotension type: unspecified hypotension type Qualified Code(s): I95.9 - Hypotension, unspecified
--- NOTE | 2020-04-14 18:34 | XRay Report ---
XR chest 1V portable, XR KUB/Abdomen 1 view HISTORY: 79 years-old Female change in MS acutely altered mental status. Chest and abdominal pain. C OMPARISON: Chest radiograph 04/12/2020 TECHNIQUE: Portable AP view of the chest FINDINGS: CHEST: Cardiac silhouette is enlarged. No overt pulmonary edema. Lungs are hyperinflated. No pneumothorax, l arge pleural effusion or overt pulmonary edema. Mildly progressed linear left lung base opacities. Il l-defined opacity of the lateral right midlung. Degenerative changes of the shoulders and spine. KUB: No pneumatosis or pneumoperitoneum. Nonobstructive bowel gas pattern. Lumbar levoscoliosis. Previousl y noted left nephrolithiasis is not definitively seen. Moderate fecal retention of the rectosigmoid. IMPRESSION: 1. Cardiomegaly without overt pulmonary edema. 2. Progressive linear left lung base opacities suggestive of probable atelectasis with scarring. 3. Ill-defined opacity of the right midlung is new from comparison and is likely artifactual. Subtle developing airspace disease considered less likely. 4. Nonobstructive bowel gas pattern. ACT 112: Negative or not required by law. The above report was generated using voice recognition software. It may contain grammatical, syntax o r spelling errors. Electronically signed by: Devendra Landers M.D. 04/14/2020 6:32 PM
[2020-04-14] MEDS: DONEPEZIL HCL 5 MG TAB PO SCH (21:15)
[2020-04-14] MEDS: FLUoxetine HCL 20 MG CAP PO SCH (21:16)
[2020-04-15] MEDS: CEFEPIME 2,000 MG in SYRINGE 0 ML IV SCH ×3 (00:16→23:29)
[2020-04-15] MEDS: D5NSS + 20MEQ KCL 20 MEQ/1,000 ML BAG IV SCH (00:16)
[2020-04-15] MEDS: LEVOTHYROXINE SODIUM 88 MCG TABLET PO SCH (05:34)
[2020-04-15 06:20] LABS: Hematocrit (blood only) 34.5 % (37-47); Hemoglobin 11.7 g/dL (12.0-16.0); Mean Corpuscular Hemoglobin 33.2 pg (25-34); Mean Corpuscular Hgb Conc 33.9 g/dL (32-36); RDW Coefficient of Variation 13.9 % (11.5-14.5); RDW Standard Deviation 49.8 fL (36.4-46.3); Red Blood Count 3.52 M/uL (4.2-5.4); White Blood Count 4.73 K/uL (4.8-10.8)
[2020-04-15 06:42] LABS: Basophils # (auto) 0.01 K/uL (0-0.2); Basophils % (auto) 0.2 %; Eosinophils # (auto) 0.04 K/uL (0-0.5); Eosinophils % (auto) 0.8 %; Lymphocytes # (auto) 0.46 K/uL (1.2-3.4); Lymphocytes % (auto) 9.7 %; Mean Platelet Volume 10.9 fL (7.4-10.4); Monocytes % (auto) 12.7 %; Neutrophils # (auto) 3.62 K/uL (1.4-6.5); Neutrophils % (auto) 76.6 %; Platelet Count 97 K/uL (130-400); Platelet Estimate Decreased (Normal)
[2020-04-15 06:53] LABS: Albumin Level 2.6 gm/dl (3.4-5.0); Calcium 8.8 mg/dl (8.5-10.1); Creatinine Clr Calc Pharmacy 68.2 ml/min; Est GFR (African American) 107.5; Est GFR (Non-African American) 92.8; Potassium 3.7 mmol/L (3.5-5.1)
[2020-04-15 06:56] LABS: Bilirubin,Total 0.9 mg/dl (0.2-1); Globulin 2.5 gm/dl (2.5-4.0); Total Protein 5.1 gm/dl (6.4-8.2)
[2020-04-15] MEDS: HEPARIN SOD 5,000 UNIT/0.5 ML VIAL SQ SCH ×2 (08:36→21:06)
--- NOTE | 2020-04-15 09:05 | Hospitalist Progress Note ---
Date of Service April 15, 2020 Assessment & Plan (1) Encephalopathy: She is currently n.p.o.she has failed bedside swallow evaluation, 04/15/2020 although she did initiate to voluntary swallows. Overall alertness is limiting her ability to progress with feedings Family states that they may consider enteral feedings temporarily if she does not improve ua shows alpha strep not enterococcus on cefepime which should treat, not clear why she has not improved to a larger degree, largest issue is lethargy and swallowing (2) Hypotension: Present on admission. Resolved with IV fluids (3) Ambulatory dysfunction: OT and PT assessments when able Unable to asses at this time due to above encephalopathy (4) DVT prophylaxis: Heparin or Lovenox subcu (5) Hypothyroidism, postablative: Check thyroid levels and continue replacement therapy Disposition: To be determined (6) Constipation: seen on CT scan, no reported BM. benign abdominal exam 04/12/20 IMPRESSION: 1. Significantly suboptimal examination without oral and IV contrast. The examination is also compromised by streak and motion artifact and patient cachexia. 2. There is rectosigmoid fecal impaction with moderate to severe constipation. 3. Wall thickening is seen throughout the left colon, greatest involving the rectosigmoid. There is significant perirectal inflammation. Correlate clinically for evidence of a nonspecific proctocolitis (likely stercoral). 4. Cardiomegaly. 5. Left-sided nephrolithiasis. 6. Trace pleural effusions with dependent consolidation. This likely represents atelectasis. Correlate clinically for evidence of pneumonia/aspiration pneumonitis. (7) Schizoaffective disorder: Patient returned to her family home in February after a several week stay at inpatient psychiatric facility on significant doses of antipsychotic medication, paliperidone, initiate 6 mg decreased to 3 mg recently due to functional decline at home family is feeling fairly confident that this medication may have precipitated some of her current symptoms Admission and Anticipated Discharge Date Admission Date: April 12, 2020 Subjective pt is lethargic and not able to speak in a few words, still not able to swallow safely Review of Systems Review of Systems: Unobtainable due to cognitive status Physical Exam Physical Exam: The patient chronically ill and underweight Vital signs as documented. Head exam is normocephalic atraumatic no scleral icterus Neck is without JVD, thyromegaly, or carotid bruits. Lungs are clear at the bases she is some gurgling of her trachea with concern for protecting her airway during evaluation Cardiac exam, Rhythm is regular.. Systolic ejection murmur is heard Abdominal exam reveals normal bowel sounds, soft non tender, no masses Extremities are nonedematous and both pedal pulses are present Neurologic exam is alert and speak a few words is globally weak and cannot lift her arms more than a few inches off the bed Skin is without bruises or rashes Results & Data Results & Data ([facility]) Vital Signs (Past 12 Hours) Vital Signs Temp Pulse Pulse Resp BP Pulse Ox 04/15/20 07:43 98.2 F 55 L 16 117/67 96 04/15/20 07:20 56 L 04/15/20 03:40 97.9 F 66 20 118/73 96 04/14/20 23:38 98.2 F 66 20 132/82 95 PG Care Time/CCT Total # of Minutes Spent Total Time Spent with Patient: Total time spent is greater than 50% in coordination of care (as documented) at patient's floor/unit and/or counseling patient: Coding Level of Care Code 09824 Subseq Hosp Care Lvl 3 Diagnoses Encephalopathy G93.40 Hypotension I95.9 Hypotension type: unspecified hypotension type Ambulatory dysfunction R26.2 DVT prophylaxis Z29.9 Hypothyroidism, postablative E89.0 Constipation K59.00 Schizoaffective disorder F25.9 (1) Hypotension Hypotension type: unspecified hypotension type Qualified Code(s): I95.9 - Hypotension, unspecified
[2020-04-15] MEDS: DOCUSATE SODIUM 100 MG CAP PO SCH (09:37)
[2020-04-16] MEDS: D5NSS + 20MEQ KCL 20 MEQ/1,000 ML BAG IV SCH ×3 (04:14→12:28)
[2020-04-16 06:18] LABS: Hematocrit (blood only) 37.1 % (37-47); Hemoglobin 12.5 g/dL (12.0-16.0); Mean Corpuscular Hemoglobin 33.2 pg (25-34); Mean Corpuscular Hgb Conc 33.7 g/dL (32-36); Mean Corpuscular Volume 98.4 fL (80-100); RDW Coefficient of Variation 13.7 % (11.5-14.5); RDW Standard Deviation 48.9 fL (36.4-46.3); Red Blood Count 3.77 M/uL (4.2-5.4); White Blood Count 5.43 K/uL (4.8-10.8)
[2020-04-16 06:19] LABS: Mean Platelet Volume 11.5 fL (7.4-10.4); Platelet Count 91 K/uL (130-400)
[2020-04-16 06:33] LABS: Eosinophils # (auto) 0.06 K/uL (0-0.5); Eosinophils % (auto) 1.1 %; Lymphocytes # (auto) 0.53 K/uL (1.2-3.4); Lymphocytes % (auto) 9.8 %; Monocytes # (auto) 0.76 K/uL (0.11-0.59); Neutrophils # (auto) 4.08 K/uL (1.4-6.5); Neutrophils % (auto) 75.1 %
[2020-04-16 07:03] LABS: Thyroid Stimulating Hormone 7.2 uIu/ml (0.300-4.500)
--- NOTE | 2020-04-16 07:12 | Hospitalist Progress Note ---
Date of Service April 16, 2020 Assessment & Plan (1) Encephalopathy: She is currently has overall improved alertness speech therapy is now feeling more comfortable with advancing her feedings with concern for aspiration of thin liquids Family was called and went to voice mail ua shows alpha strep not enterococcus will continue for 5 day course given degree of encephalopathy (2) Hypotension: Present on admission. Resolved with IV fluids (3) Ambulatory dysfunction: OT and PT assessments when able Unable to asses at this time due to above encephalopathy (4) DVT prophylaxis: Heparin or Lovenox subcu (5) Hypothyroidism, postablative: Check thyroid levels and continue replacement therapy Disposition: To be determined (6) Constipation: seen on CT scan, no reported BM. benign abdominal exam 04/12/20 IMPRESSION: 1. Significantly suboptimal examination without oral and IV contrast. The examination is also compromised by streak and motion artifact and patient cachexia. 2. There is rectosigmoid fecal impaction with moderate to severe constipation. 3. Wall thickening is seen throughout the left colon, greatest involving the rectosigmoid. There is significant perirectal inflammation. Correlate clinically for evidence of a nonspecific proctocolitis (likely stercoral). 4. Cardiomegaly. 5. Left-sided nephrolithiasis. 6. Trace pleural effusions with dependent consolidation. This likely represents atelectasis. Correlate clinically for evidence of pneumonia/aspira tion pneumonitis. (7) Schizoaffective disorder: Patient returned to her family home in February after a several week stay at inpatient psychiatric facility on significant doses of antipsychotic medication, paliperidone, initiate 6 mg decreased to 3 mg recently due to functional decline at home family is feeling fairly confident that this medication may have precipitated some of her current symptoms (8) Severe protein-calorie malnutrition: Admission and Anticipated Discharge Date Admission Date: April 12, 2020 Subjective Patient is more awake and interactive. She is able to participate in swallowing eval. She did fail with thin liquids but did well with foods. Diet will be advanced. Otherwise overall good progress no specific complaints or problems at this time Review of Systems Review of Systems: Unobtainable due to cognitive status Improved patient's cognitive status does not warrant a reliable nor complete review of systems at this time Physical Exam Physical Exam: The patient chronically ill and underweight Vital signs as documented. Head exam is normocephalic atraumatic no scleral icterus Neck is without JVD, thyromegaly, or carotid bruits. Lungs are clear at the bases no longer having upper airway breath sounds during exam Cardiac exam, Rhythm is regular.. Systolic ejection murmur is heard Abdominal exam reveals normal bowel sounds, soft non tender, no masses Extremities are nonedematous and both pedal pulses are present Neurologic exam is alert and oriented x2, remains globally weak and cannot lift her arms more than a few inches off the bed Skin is without bruises or rashes Results & Data Results & Data ([facility]) Vital Signs (Past 12 Hours) Vital Signs Temp Pulse Pulse Resp BP Pulse Ox 04/16/20 04:04 97.5 F L 52 L 16 125/73 98 04/15/20 23:59 56 L 04/15/20 23:22 97.5 F L 56 L 16 121/69 97 04/15/20 19:21 97.7 F 57 L 16 121/72 97 PG Care Time/CCT Total # of Minutes Spent Total Time Spent with Patient: Total time spent is greater than 50% in c oordination of care (as documented) at patient's floor/unit and/or counseling patient: Coding Level of Care Code 08677 Subseq Hosp Care Lvl 2 Diagnoses Encephalopathy G93.40 Hypotension I95.9 Hypotension type: unspecified hypotension type Ambulatory dysfunction R26.2 DVT prophylaxis Z29.9 Hypothyroidism, postablative E89.0 Constipation K59.00 Schizoaffective disorder F25.9 Severe protein-calorie malnutrition E43 (1) Hypotension Hypotension type: unspecified hypotension type Qualified Code(s): I95.9 - Hypotension, unspecified
[2020-04-16 07:22] LABS: T4 Free Thyroxine 1.1 ng/dl (0.8-1.6)
[2020-04-16] MEDS: HEPARIN SOD 5,000 UNIT/0.5 ML VIAL SQ SCH ×2 (08:41→21:11)
[2020-04-16] MEDS: CEFEPIME 2,000 MG in SYRINGE 0 ML IV SCH ×2 (12:28→23:35)
[2020-04-17] MEDS: LEVOTHYROXINE SODIUM 88 MCG TABLET PO SCH (05:26)
--- NOTE | 2020-04-17 08:38 | Hospitalist Progress Note ---
Date of Service April 17, 2020 Assessment & Plan (1) Encephalopathy: She is currently has overall improved alertness speech therapy is now feeling more comfortable with advancing her feedings with concern for aspiration of thin liquids Family was called and went to voice mail ua shows alpha strep not enterococcus will continue for 5 day course given degree of encephalopathy (2) Hypotension: Present on admission. Resolved with IV fluids (3) Ambulatory dysfunction: OT and PT assessments when able Unable to asses at this time due to above encephalopathy (4) DVT prophylaxis: Heparin or Lovenox subcu (5) Hypothyroidism, postablative: Check thyroid levels and continue replacement therapy Disposition: will try to have PT OT and get pt back to home if able (6) Constipation: seen on CT scan, no reported BM. benign abdominal exam 04/12/20 IMPRESSION: 1. Significantly suboptimal examination without oral and IV contrast. The examination is also compromised by streak and motion artifact and patient cachexia. 2. There is rectosigmoid fecal impaction with moderate to severe constipation. 3. Wall thickening is seen throughout the left colon, greatest involving the rectosigmoid. There is significant perirectal inflammation. Correlate clinically for evidence of a nonspecific proctocolitis (likely stercoral). 4. Cardiomegaly. 5. Left-sided nephrolithiasis. 6. Trace pleural effusions with dependent consolidation. This likely represents atelectasis. Correlate clinically for evidence of pneumonia/aspiration pneumonitis. (7) Schizoaffective disorder: Patient returned to her family home in February after a several week stay at inpatient psychiatric facility on significant doses of antipsychotic medication, paliperidone, initiate 6 mg decreased to 3 mg recently due to functional decline at home family is feeling fairly confident that this medication may have precipitated some of her current symptoms (8) Severe protein-calorie malnutrition: Admission and Anticipated Discharge Date Admission Date: April 12, 2020 Subjective Patient is more awake and interactive. She is able to participate in swallowing eval. She did fail with thin liquids but did well with foods. Diet will be advanced. Otherwise overall good progress no specific complaints or problems at this time Review of Systems Review of Systems: Improved patient's cognitive status does not warrant a reliable nor complete review of systems at this time Physical Exam Physical Exam: The patient chronically ill and underweight Vital signs as documented. Head exam is normocephalic atraumatic no scleral icterus Neck is without JVD, thyromegaly, or carotid bruits. Lungs are clear at the bases no longer having upper airway breath sounds during exam Cardiac exam, Rhythm is regular.. Systolic ejection murmur is heard Abdominal exam reveals normal bowel sounds, soft non tender, no masses Extremities are nonedematous and both pedal pulses are present Neurologic exam is alert and oriented x2, remains globally weak and cannot lift her arms more than a few inches off the bed Skin is without bruises or rashes Results & Data Results & Data ([facility]) Vital Signs (Past 12 Hours) Vital Signs Temp Pulse Pulse Resp BP Pulse Ox 04/17/20 08:27 97.3 F L 60 20 104/66 98 04/17/20 03:00 97.7 F 60 17 109/66 99 04/16/20 23:35 97.9 F 58 L 14 118/74 97 04/16/20 23:17 53 L PG Care Time/CCT Total # of Minutes Spent Total Time Spent with Patient: Total time spent is greater than 50% in coordinat ion of care (as documented) at patient's floor/unit and/or counseling patient: Coding Level of Care Code 69982 Subseq Hosp Care Lvl 2 Diagnoses Encephalopathy G93.40 Hypotension I95.9 Hypotension type: unspecified hypotension type Ambulatory dysfunction R26.2 DVT prophylaxis Z29.9 Hypothyroidism, postablative E89.0 Constipation K59.00 Schizoaffective disorder F25.9 Severe protein-calorie malnutrition E43 (1) Hypotension Hypotension type: unspecified hypotension type Qualified Code(s): I95.9 - Hypotension, unspecified
[2020-04-17] MEDS: D5NSS + 20MEQ KCL 20 MEQ/1,000 ML BAG IV SCH ×2 (08:51→11:37)
[2020-04-17] MEDS: HEPARIN SOD 5,000 UNIT/0.5 ML VIAL SQ SCH ×2 (08:52→20:04)
[2020-04-17] MEDS: DOCUSATE SODIUM 100 MG CAP PO SCH (11:39)
[2020-04-17] MEDS: CEFEPIME 2,000 MG in SYRINGE 0 ML IV SCH (11:39)
[2020-04-17] MEDS: DONEPEZIL HCL 5 MG TAB PO SCH (20:04)
[2020-04-17] MEDS: FLUoxetine HCL 20 MG CAP PO SCH (20:04)
[2020-04-18] MEDS: CEFEPIME 2,000 MG in SYRINGE 0 ML IV SCH ×2 (00:04→11:47)
[2020-04-18] MEDS: D5NSS + 20MEQ KCL 20 MEQ/1,000 ML BAG IV SCH ×2 (00:04→13:30)
[2020-04-18] MEDS: LEVOTHYROXINE SODIUM 88 MCG TABLET PO SCH (05:15)
[2020-04-18] MEDS: HEPARIN SOD 5,000 UNIT/0.5 ML VIAL SQ SCH (08:37)
[2020-04-18] MEDS: DOCUSATE SODIUM 100 MG CAP PO SCH (11:47)
--- NOTE | 2020-04-18 16:51 | Discharge Summary ---
Date of Service April 18, 2020 Admission HPI Per Admitting Provider This is a 79-year-old female who presents to the emergency department by private vehicle due to altered mental status. Due to the patient's clinical condition I cannot really obtain much meaningful history from her. History was obtained from discussion with the staff in the emergency department as well as discussion with her daughter who I was able to contact by phone. Daughter notes that she was recently hospitalized in [facility] for 6 weeks in February 2020. She notes that her mother was treated for urinary tract infection at that time. She also notes that she was started on numerous antidepressants prior to discharge. Since returning home from [facility] she feels as though her mother has been clinically deteriorating. Patient's daughter feels that the doses of her antidepressant medications have been too high and she has been conferencing with the physician the previously treating physicians and they have been adjusting the medicines. Patient's daughter notes that she lives alone however she has been spending at least 12 hours a day with her mother ensuring that she is taking care of. According to her daughter she has been taking all of her medications as prescribed. She feels as though she has been eating normally but feels as though she may not be drinking enough. Over the past several days she notes that her speech has been more slurred and her mental status continues to be more altered. In addition she notes that her mother's abdomen seem to be somewhat more protuberant than usual and over the past several days her mother has had issues with constipation. There have been no reported fevers. Her daughter did not note any recent falls that her mother has had. She does note that she ambulates with a walker and has been increasingly unsteady over the past several days. No additional history could be obtained. In the emergency department a CT scan of the head did not review any acute intracranial process chest x-ray was without findings concerning for pneumonia or congestive heart failure. CBC revealed white blood cell count was 4.2 hemoglobin hematocrit were 11.9 and 34.8 and platelet count was 122,000. Her sodium was 135 potassium 3.4. Her BUN and creatinine were 14 and 0.4. There were no significant elevation of her LFTs. Her cardiac enzymes were not elevated but her total CK level was noted to be 200 which was slightly elevated. Random cortisol level was within the normal range. She was noted to have an elevated TSH at 7.1 and a free T4 level was normal at 1.27. Did have a free T3 level that was noted to be slightly low at 1.8. Urinalysis was concerning for urinary tract infection. A Covid test was performed which was noted to be negative. The patient was also tested for influenza a and B which were also negative. There was a mention that at time of arrival to the emergency department the patient was noted to be hypothermic as well as hypotensive. Her systolic blood pressure was reportedly in the 60s upon arrival and she has received 3 L of intravenous fluid and her blood pressure has improved into the 90s. At the time of my exam the patient again could not provide any meaningful history. She was in no distress and did not offer any specific complaints. Principal Diagnosis toxic encephalopathy metabolic encephalopathy Discharge Exam The patient appeared to be improving daily Vital signs as documented. Lungs are clear to auscultation and appear unlabored Cardiac exam, Rhythm is regular.. No murmurs, rubs or gallops. Abdominal exam reveals normal bowel sounds, soft non tender, no masses Extremities are nonedematous and both pedal pulses are normal. Neurologic exam is alert and oriented x2, very weak and tired Skin is without bruises or rashes Psychologically is with concerns for memory loss Discharge Data Allergies Allergy/AdvReac Type Severity Reaction Status Date / Time midazolam AdvReac Mild confused, Verified 04/12/20 14:07 off balence EPINEPHrine Base AERS Allergy Unknown Unknown Uncoded 04/12/20 14:07 Consultations 04/12/20 14:02 ED Decision to Admit Stat 04/12/20 16:30 ED Decision to Admit Stat Ordered Studies 04/12/20 12:16 CT head/brain wo con Stat 04/12/20 16:04 CT abd pelvis wo con Stat Hospital Course (1) Encephalopathy: She is currently has overall improved alertness speech therapy has advancing her feedings with concern for aspiration of thin liquids, will continue to follow at acute rehab Family was called and updated prior to discharge ua shows alpha strep not enterococcus treated with cephalosporin (2) Hypotension: Present on admission. Resolved with IV fluids (3) Ambulatory dysfunction: OT and PT assessments are supportive of acute rehab (4) Hypothyroidism, postablative: tsh high but free t 4 in normal range continue replacement and recheck in 6 weeks (5) Constipation: seen on CT scan, remains on bisacodyl benign abdominal exam 04/12/20 IMPRESSION: 1. Significantly suboptimal examination without oral and IV contrast. The examination is also compromised by streak and motion artifact and patient cachexia. 2. There is rectosigmoid fecal impaction with moderate to severe constipation. 3. Wall thickening is seen throughout the left colon, greatest involving the rectosigmoid. There is significant perirectal inflammation. Correlate clinically for evidence of a nonspecific proctocolitis (likely stercoral). 4. Cardiomegaly. 5. Left-sided nephrolithiasis. 6. Trace pleural effusions with dependent consolidation. This likely represents atelectasis. Correlate clinically for evidence of pneumonia/aspiration pneumonitis. (6) Schizoaffective disorder: Patient returned to her family home in February after a several week stay at inpatient psychiatric facility on significant doses of antipsychotic medication, paliperidone, initially 6 mg decreased to 3 mg recently due to functional decline at home family is feeling fairly confident that this medication may have precipitated some of her current symptoms Pt is not exhibiting any issues at the present and the family request to have meds held except for prozac (7) Severe protein-calorie malnutrition: Total Time Total Time Spent Total Time Spent (In Minutes): It required greater than 30 minutes to prepare this patient for discharge Discharge Plan Discharge Items Patient Disposition: Transfer Inpatient Rehab Fac Reason For Visit: AMS Discharge Diagnosis: toxic encepahlopathy from medication metabolic encephalopathy from urine infection Condition on Discharge: Fair Activity: Per Instructions section Activity Comment: per PT/OT Non-emergency contact: Primary Care Provider Call non-emergency contact if: your symptoms worsen Follow-up/Referrals: Pro,Cleve Sharp MD [Primary Care Provider] - Diet: Regular Diet Texture: Easy to Chew Liquid Consistency: Carmi thick Addtl Attending Provider Instructions: on going speech, physical and occupational therapy if mild bradycardia persists consider stopping prozac due to concerns for medication ADR being part of this recent admission family wishes to minimize medications at this time and requested stopping aricept, they are also ok if prozac needs to be stopped or reduced Pending Studies at Discharge: No Stand-Alone Forms: My [facility] Skilled Items Patient informed of condition?: Yes DNR: Yes Discharge Level of Care: Other Communicable Disease: No Discharge Prognosis: Stable Lines: None Urinary Catheter: No Medications and DC Order Prescriptions: New cefdinir 300 mg capsule 300 mg PO BID 5 Days Qty: 10 RF: 0 Continued fluoxetine 20 mg capsule 20 mg PO PM RF: 0 levothyroxine [Synthroid] 88 mcg tablet 88 mcg PO QAM RF: 0 docusate sodium [Colace] 100 mg capsule 100 mg PO QDL RF: 0 Discontinued paliperidone [Invega] 6 mg tablet extended release 24hr 3 mg PO HS RF: 0 benztropine 1 mg tablet 0.5 mg PO BID RF: 0 donepezil 5 mg tablet 5 mg PO HS RF: 0 Discharge Orders: Discharge Order (Routine); Ordered 04/18/20 Ordered By: Keyon Kidd Admission Data Admit Date/Time: 04/12/20 16:24 Attending Provider: Keyon Kidd Admit Provider: Oscar Perez Primary Care Provider: Cleve Hurst Other Providers: Marbin Ta ; Armand Jiménez ; [facility] Other Interventions: Discharge Summary Assessment (RN) Last Done: 04/18/20 13:15 Coding Level of Care Code D/C Day Management >30 mins Diagnoses Encephalopathy G93.40 Hypotension I95.9 Hypotension type: unspecified hypotension type Ambulatory dysfunction R26.2 Hypothyroidism, postablative E89.0 Constipation K59.00 Schizoaffective disorder F25.9 Severe protein-calorie malnutrition E43
== END 2020-04-18 15:57 | DRG 689 ==
LOC: ED 11:52 → SUATTDRO 16:24 → 2S 16:24 → 2W 04-17 10:10

== ENCOUNTER 2020-12-29 14:57 | Inpatient (IN) ==
--- NOTE | 2020-12-29 16:16 | Emergency Department Note ---
History of Present Illness General Chief complaint: Fall Stated complaint: Left rib pain Time Seen by Provider: 12/29/20 15:12 History of Present Illness This 80-year-old female presents today by BLS ambulance, for evaluation after a fall. Patient resides at [facility]. The staff there found her in the h allway, laying on her left side. Patient stated she had fallen. She was not sure exactly what happened, but believes she tripped over her shoes. She denies any chest pain, shortness of breath, or abdominal pain at the time of the fall. She denies any dizziness. Patient states she falls frequently. Currently she complains of left rib pain with a deep breath. She denies any head pain, neck pain, back pain, pelvic pain, or pain in the extremities. No numbness or tingling. No nausea or vomiting. No other treatment. Her daughter reportedly makes all of her medical decision. Home Medications Medication Instructions Recorded Confirmed Type docusate sodium 100 mg capsule 100 mg PO BID 04/12/20 12/29/20 History (Colace) levothyroxine 88 mcg tablet 88 mcg PO QAM 04/12/20 12/29/20 History (Synthroid) ascorbic acid (vitamin C) 500 mg 500 mg PO BID 08/11/20 12/29/20 History tablet (Vitamin C) bisacodyl 10 mg rectal suppository 10 mg HI DAILY PRN 08/11/20 12/29/20 History (Dulcolax (bisacodyl)) carboxymethylcellulose sodium 0.25 2 drp OPHTHALMIC (EYE) BID PRN 08/11/20 12/29/20 History % eye drops cholecalciferol (vitamin D3) 50 50 mcg PO DAILY 08/11/20 12/29/20 History mcg (2,000 unit) tablet (Vitamin D3) famotidine 20 mg tablet 20 mg PO DAILY 08/11/20 12/29/20 History magnesium hydroxide 400 mg/5 mL 30 ml PO DAILY PRN 08/11/20 12/29/20 History oral suspension (Milk of Magnesia) melatonin 3 mg disintegrating 3 mg PO HS 08/11/20 12/29/20 History tablet ondansetron 4 mg disintegrating 4 mg PO Q4H PRN 08/11/20 12/29/20 History tablet polyethylene glycol 3350 17 17 g PO DAILY 08/11/20 12/29/20 History gram/dose oral powder acetaminophen 325 mg capsule 650 mg PO QID PRN cap 11/26/20 12/29/20 History (Tylenol) risperidone 0.5 mg tablet 0.5 mg PO BID #60 tab 11/26/20 12/29/20 Rx mirtazapine 15 mg tablet 15 mg PO HS 12/29/20 12/29/20 History Allergies Allergy/AdvReac Type Severity Reaction Status Date / Time midazolam AdvReac Mild confused, Verified 12/29/20 15:40 off balence buspirone AdvReac Unknown paranoia Unverified 12/29/20 15:40 EPINEPHrine Base AERS Allergy Unknown Unknown Uncoded 12/29/20 15:40 Past Med/Surg History Medical History (Updated 12/29/20 @ 18:25 by Dae Coates PA-C) History of vitamin D deficiency Hypothyroidism, postablative IBS (irritable bowel syndrome) Migraine Mood disorder Osteoporosis Protein calorie malnutrition Sarcoid Surgical History History of sigmoidoscopy S/P breast biopsy S/P hysterectomy with oophorectomy S/P subtotal thyroidectomy S/P thoracotomy Family History Mother Cardiovascular disease Diabetes Hypothyroidism Father Cardiovascular disease Diabetes Hypothyroidism Myocardial infarction Other Congestive heart failure Hypertension Denies family history of Colon cancer Ovarian cancer Prostate cancer Breast cancer Social History Smoking Status: Never smoker Second Hand Exposure: No; Hx Alcohol Use: No Hx Substance Use: No Preferred Language: Montenegrin Communication Ability: Impaired Telehealth Nurse Educator Required: No Beliefs That Will Affect Care: None marital status: Current Living Situation: Alone Current Living Situation Comment: friend with patient in ED current occupational status: retired Feels Safe at Home: Yes Physical Activity Frequency: Does not Exercise Seatbelt Use: always Assistive Devices: None Review of Systems Unobtainable due to cognitive status Physical Exam Vital Signs Vital Signs - 24 hr 12/29/20 15:05 Temperature 36.4 C L Temperature Source Oral Pulse Rate 73 Pulse Rhythm Regular Pulse Strength Normal Respiratory Rate 18 Respiratory Effort / Characteristics Non-Labored Spontaneous Respiratory Depth Normal Blood Pressure 122/73 Blood Pressure Mean 89 Blood Pressure Position Lying Pulse Oximetry 95 Oxygen Delivery Method Room Air Sepsis Recent Fever Within 48 Hours No Sepsis New/Unexplained Change in Mental Status No Sepsis Action Taken by Nursing No Action Required General: Well-developed, thin, elderly white female, in no acute distress. Laying in the bed. Conversive. Oriented to place. States currently nothing bothers her. She has no pain. Skin: Warm dry with fair turgor. No rashes or lesions. No erythema. No lacerations. No hematoma on her scalp. HEENT: Normocephalic. Eyes PERRLA EOMI. Nares patent bilaterally without turbinate enlargement. Ears: TMs intact bilaterally with good light reflexes. Heart: Heart RRR. No GR. 3/6 systolic murmur noted at the left chest. Peripheral pulses are 2+. Lungs: Lungs are clear to auscultation. No crackles rhonchi or wheezing. Good air movement. The patient is able to take a deep breath. Abdomen: Abdomen was inspected, auscultated, and palpated. Bowel sounds present x 4. Soft, nontender to palpation. No hepato-splenomegaly. No masses noted. No rebound. Musculoskeletal: Patient has no discomfort with palpation over her cervical spine or thoracic spine. She has reasonably good range of motion of the neck. Supple motion of her shoulders, elbows, wrists, and digits, hips, knees, and ankles. No pain with logrolling of the hips. No pain with palpation of her pelvis at the iliac crests or the ischial tuberosities. No pain over the greater trochanters. She complains of left-sided rib discomfort with palpation of the ribs. There is also some left-sided discomfort with deep breaths. No palpable crepitus. Neurologic: Gross sensation is intact across the upper and lower extremities by soft touch. Medical Decision Making Differential Diagnosis Fall, fracture, intracranial bleed, unstable gait Laboratory Data Result diagrams: 12/29/20 20:28 12/29/20 20:28 Lab Results 12/29/20 12/29/20 Range/Units 20:28 20:28 WBC 9.02 (4.8-10.8) K/uL RBC 3.67 L (4.2-5.4) M/uL Hgb 12.0 (12.0-16.0) g/dL Hct 36.2 L (37-47) % MCV 98.6 (80-100) fL MCH 32.7 (25-34) pg MCHC 33.1 (32-36) g/dL RDW Std Deviation 47.9 H (36.4-46.3) fL RDW Coeff of Christophe 13.3 (11.5-14.5) % Plt Count 195 (130-400) K/uL MPV 9.6 (7.4-10.4) fL Immature Gran % (Auto) 0.1 % Neut % (Auto) 85.4 % Lymph % (Auto) 6.3 % [place] % (Auto) 7.9 % Eos % (Auto) 0.2 % Baso % (Auto) 0.1 % Neut # (Auto) 7.70 H (1.4-6.5) K/uL Lymph # (Auto) 0.57 L (1.2-3.4) K/uL [place] # (Auto) 0.71 H (0.11-0.59) K/uL Eos # (Auto) 0.02 (0-0.5) K/uL Baso # (Auto) 0.01 (0-0.2) K/uL Immature Gran # (Auto) 0.01 (0.00-0.02) K/uL Sodium 136 (136-145) mmol/L Potassium 4.0 (3.5-5.1) mmol/L Chloride 104 (98-107) mmol/L Carbon Dioxide 29 (21-32) mmol/L Anion Gap 4.0 (3-11) BUN 13 (7-18) mg/dl Creatinine 0.50 L (0.6-1.2) mg/dl Est Cr Clr Drug Dosing 70.6 ml/min Est GFR ( Amer) 107.4 ml/min Est GFR (Non-Af Amer) 92.7 ml/min BUN/Creatinine Ratio 26.9 H (10-20) Glucose 112 H (70-99) mg/dl Calcium 9.7 (8.5-10.1) mg/dl AST 20 (15-37) U/L ALT 28 (12-78) U/L Albumin 3.3 L (3.4-5.0) gm/dl Imaging Data My Impression: CT scan imaging obtained today of her head was read by radiology as unremarkable. This was reviewed by me. No evidence of acute intracranial abnormality or calvarial fracture. Small left scalp hematoma is noted. Rib films obtained today were also read by radiology and reviewed by me. She has no acute process in the chest. No acute rib fractures. There are subacute to chronic fractures of the lateral left 9th 10th and 11th ribs. Radiologist's Impression: Head CT 12/29/20 15:24 CT head/brain wo con CLINICAL HISTORY: 80 years-old Female with fall. Acute head trauma status post fall TECHNIQUE: Multiple axial CT images of the head were obtained without contrast. A dose lowering technique was utilized adhering to the principles of ALARA. CT DOSE: 720.23 mGy.cm COMPARISON: Head CT 04/12/2020, brain MRI 06/14/2020 FINDINGS: No acute intracranial hemorrhage, midline shift, intracranial mass, hydrocephalus, territorial ischemia or abnormal extra-axial collection. Age-related involutional changes. Cerebral vascular calcifications. White matter hypodensities suggest chronic microvascular ischemic disease. Senescent calcifications of the basal ganglia. The calvarium is intact. Small left frontal temporal scalp hematoma measures 3.2 x 0.4 cm. Prior bilateral lens repair. The paranasal sinuses, mastoid air cells, and middle ear cavities are clear. IMPRESSION: 1. No acute intracranial abnormality or calvarial fracture. 2. Small left scalp hematoma. ACT 112: Negative or not required by law. The above report was generated using voice recognition software. It may contain grammatical, syntax or spelling errors. Electronically signed by: Elie Landers M.D. 12/29/2020 4:19 PM Ribs w/Chest X-Ray 12/29/20 15:24 XR ribs LT min 2V w CXR1V HISTORY: 80 years-old Female fall, left rib pain . Acute left-sided rib pain status post fall COMPARISON: Chest radiograph 08/11/2020 TECHNIQUE: AP view of the chest with 4 views of the left ribs FINDINGS: Cardiac mediastinal and hilar silhouettes are within normal limits. Hyperinflation with chronic interstitial coarsening. Degenerative changes of the shoulders and spine. Subacute to chronic appearing fractures of the lateral left ninth, 10th and 11th ribs with mild angulation involving the left 11th rib fracture. IMPRESSION: 1. No acute processes of the chest. 2. No acute rib fracture or pneumothorax. 3. Subacute to chronic fractures of the lateral left 9th, 10th and 11th ribs with mild angulation of the left 11th rib fracture. ACT 112: Negative or not required by law. The above report was generated using voice recognition software. It may contain grammatical, syntax or spelling errors. Electronically signed by: Elie Landers M.D. 12/29/2020 6:[address] 12/29/20 19:22 CT bony pelvis wo con HISTORY: 80 years-old Female pain fall acute pelvic pain status post fall COMPARISON: CT abdomen and pelvis 04/12/2020 TECHNIQUE: Multiple axial CT images of the pelvis were obtained without the use of IV contrast. A dose lowering technique was used consistent with the principals of EREN. FINDINGS: Distended urinary bladder with mild wall thickening. Moderate fecal retention. Fluid attenuating structure within the abdominal right lower quadrant is suggestive of a probable small bowel loop. Atherosclerosis of the aorta and iliac arteries. Demineralized appearance of the bones. Subacute fracture of the mid sacrum at the level of S2 demonstrates apex dorsal angulation with volar displacement of approximately 11 mm. Bilateral sacral insufficiency fractures with sclerosis. Subacute to chronic displaced fractures of the right superior and inferior pubic rami are new from comparison. Acute mildly angulated fractures of the left inferior pubic ramus. Moderate osteoarthritis of the hips without acute fracture, dislocation or avascular necrosis. IMPRESSION: 1. Acute mildly angulated fractures of the left inferior pubic ramus. 2. Subacute to chronic appearing displaced fractures of the right superior and inferior pubic rami. 3. Angulated and displaced fracture of S2 with bilateral sacral insufficiency fractures are also likely subacute to chronic and are new from 04/12/2020. ACT 112: Negative or not required by law. The above report was generated using voice recognition software. It may contain grammatical, syntax or spelling errors. Electronically signed by: Elie Landers M.D. 12/29/2020 8:06 PM Blood Pressure Blood Pressure Findings: Normal blood pressure MDM Narrative Patient was evaluated in room A11. CT scan imaging of the head and radiographic imaging of the ribs was obtained due to her physical exam findings and history. Patient was initially very reluctant to go for CT scanning of the head. She was very insistent that she did not want CT scan imaging due to radiation exposure, and that it was unnecessary. She insisted that I call her residence facility and inform them that imaging was not needed. I did have extensive discussion about this. She eventually agreed. I did call [facility], and they confirmed that she was found laying on her left side in the ag. They stated she is a poor historian, and her location of pain changes frequently. They confirm that evaluation at the ED was requested by her daughter. Imaging showed no intracranial injury and old rib fractures. When questioned about this, patient states she thinks she last fell in October, but does not remember her ribs hurting her at that point. She requested to go back to her residence facility. Arrangements will be made through case management. Patient denied having any further discomfort. She remained stable while in the department. Impression & Plan Fall at care home, Contusion of left chest wall, Left rib fracture Tylenol every 6 hours as needed for discomfort. Cool compresses or ice packs as needed for any sore areas. Return to ED or see her PCP for any acute worsening of symptoms. Continue using her walker when ambulatory. Discharge Plan Visit Data Chief Complaint: Fall Stated Complaint: Left rib pain ED Provider: Issa Tran ED Midlevel Provider: Dae Coates Discharge Problem: Fall at care home, Contusion of left chest wall, Left rib fracture Patient Disposition: Home - Self-Care Condition: Fair Discharge Instructions Activity Restrictions/Additional Instructions: Tylenol 650 mg every 6 hours as needed for discomfort. Lidoderm patches to the left chest wall may improve comfort. Cool compresses or ice applied to the left chest wall may also improve comfort. Return to the ED for any acute changes. Continue to use the walker for ambulation. Forms Stand Alone Forms: My [facility], Virtual Emergency Department, Important Visit Information Prescriptions Prescriptions: No Action acetaminophen [Tylenol] 325 mg capsule 650 mg PO QID PRN (Reason: Pain) RF: 0 risperidone 0.5 mg tablet 0.5 mg PO BID Qty: 60 RF: 2 levothyroxine [Synthroid] 88 mcg tablet 88 mcg PO QAM RF: 0 docusate sodium [Colace] 100 mg capsule 100 mg PO BID RF: 0 famotidine 20 mg Tablet 20 mg PO DAILY RF: 0 ascorbic acid (vitamin C) [Vitamin C] 500 mg Tablet 500 mg PO BID RF: 0 polyethylene glycol 3350 17 gram/dose Powder 17 g PO DAILY RF: 0 cholecalciferol (vitamin D3) [Vitamin D3] 50 mcg (2,000 unit) Tablet 50 mcg PO DAILY RF: 0 melatonin 3 mg Tablet,Disintegrating 3 mg PO HS RF: 0 carboxymethylcellulose sodium 0.25 % Drops 2 drp OPHTHALMIC (EYE) BID PRN (Reason: Dry Eyes) RF: 0 magnesium hydroxide [Milk of Magnesia] 400 mg/5 mL Suspension 30 ml PO DAILY PRN (Reason: Constipation) RF: 0 bisacodyl [Dulcolax (bisacodyl)] 10 mg Suppository 10 mg HI DAILY PRN (Reason: Constipation) RF: 0 ondansetron 4 mg Tablet,Disintegrating 4 mg PO Q4H PRN (Reason: Nausea/Vomiting) RF: 0 mirtazapine 15 mg tablet 15 mg PO HS RF: 0 Referrals Referrals: Yasmany Hinds [Primary Care Provider] - Discharge Problem: Fall at care home Qualifiers: Encounter type: initial encounter Qualified Code(s): W19.XXXA - Unspecified fall, initial encounter Contusion of left chest wall Qualifiers: Encounter type: initial encounter Qualified Code(s): S20.212A - Contusion of left front wall of thorax, initial encounter Left rib fracture Qualifiers: Encounter type: subsequent encounter Rib fracture type: multiple ribs Fracture type: closed Fracture healing: with routine healing Qualified Code(s): S22.42XD - Multiple fractures of ribs, left side, subsequent encounter for fracture with routine healing
--- NOTE | 2020-12-29 16:20 | CT Scan Report ---
CT head/brain wo con CLINICAL HISTORY: 80 years-old Female with fall. Acute head trauma status post fall TECHNIQUE: Multiple axial CT images of the head were obtained without contrast. A dose lowering tech nique was utilized adhering to the principles of ALARA. CT DOSE: 720.23 mGy.cm COMPARISON: Head CT 04/12/2020, brain MRI 06/14/2020 FINDINGS: No acute intracranial hemorrhage, midline shift, intracranial mass, hydrocephalus, territorial ischem ia or abnormal extra-axial collection. Age-related involutional changes. Cerebral vascular calcificat ions. White matter hypodensities suggest chronic microvascular ischemic disease. Senescent calcificat ions of the basal ganglia. The calvarium is intact. Small left frontal temporal scalp hematoma measures 3.2 x 0.4 cm. Prior bila teral lens repair. The paranasal sinuses, mastoid air cells, and middle ear cavities are clear. IMPRESSION: 1. No acute intracranial abnormality or calvarial fracture. 2. Small left scalp hematoma. ACT 112: Negative or not required by law. The above report was generated using voice recognition software. It may contain grammatical, syntax o r spelling errors. Electronically signed by: Elie Landers M.D. 12/29/2020 4:19 PM
--- NOTE | 2020-12-29 18:06 | XRay Report ---
XR ribs LT min 2V w CXR1V HISTORY: 80 years-old Female fall, left rib pain . Acute left-sided rib pain status post fall COMPARISON: Chest radiograph 08/11/2020 TECHNIQUE: AP view of the chest with 4 views of the left ribs FINDINGS: Cardiac mediastinal and hilar silhouettes are within normal limits. Hyperinflation with chronic inter stitial coarsening. Degenerative changes of the shoulders and spine. Subacute to chronic appearing fr actures of the lateral left ninth, 10th and 11th ribs with mild angulation involving the left 11th ri b fracture. IMPRESSION: 1. No acute processes of the chest. 2. No acute rib fracture or pneumothorax. 3. Subacute to chronic fractures of the lateral left 9th, 10th and 11th ribs with mild angulation of the left 11th rib fracture. ACT 112: Negative or not required by law. The above report was generated using voice recognition software. It may contain grammatical, syntax o r spelling errors. Electronically signed by: Elie Landers M.D. 12/29/2020 6:05 PM
--- NOTE | 2020-12-29 20:08 | CT Scan Report ---
CT bony pelvis wo con HISTORY: 80 years-old Female pain fall acute pelvic pain status post fall COMPARISON: CT abdomen and pelvis 04/12/2020 TECHNIQUE: Multiple axial CT images of the pelvis were obtained without the use of IV contrast. A dos e lowering technique was used consistent with the principals of EREN. FINDINGS: Distended urinary bladder with mild wall thickening. Moderate fecal retention. Fluid attenuating stru cture within the abdominal right lower quadrant is suggestive of a probable small bowel loop. Atheros clerosis of the aorta and iliac arteries. Demineralized appearance of the bones. Subacute fracture of the mid sacrum at the level of S2 demonst rates apex dorsal angulation with volar displacement of approximately 11 mm. Bilateral sacral insuffi ciency fractures with sclerosis. Subacute to chronic displaced fractures of the right superior and in ferior pubic rami are new from comparison. Acute mildly angulated fractures of the left inferior pubi c ramus. Moderate osteoarthritis of the hips without acute fracture, dislocation or avascular necrosi s. IMPRESSION: 1. Acute mildly angulated fractures of the left inferior pubic ramus. 2. Subacute to chronic appearing displaced fractures of the right superior and inferior pubic rami. 3. Angulated and displaced fracture of S2 with bilateral sacral insufficiency fractures are also like ly subacute to chronic and are new from 04/12/2020. ACT 112: Negative or not required by law. The above report was generated using voice recognition software. It may contain grammatical, syntax o r spelling errors. Electronically signed by: Elie Landers M.D. 12/29/2020 8:06 PM
[2020-12-29 20:39] LABS: Basophils # (auto) 0.01 K/uL (0-0.2); Basophils % (auto) 0.1 %; Eosinophils # (auto) 0.02 K/uL (0-0.5); Eosinophils % (auto) 0.2 %; Hematocrit (blood only) 36.2 % (37-47); Immature Granulocytes # (auto) 0.01 K/uL (0.00-0.02); Immature Granulocytes % (auto) 0.1 %; Lymphocytes # (auto) 0.57 K/uL (1.2-3.4); Lymphocytes % (auto) 6.3 %; Mean Corpuscular Hemoglobin 32.7 pg (25-34); Mean Corpuscular Hgb Conc 33.1 g/dL (32-36); Mean Corpuscular Volume 98.6 fL (80-100); Mean Platelet Volume 9.6 fL (7.4-10.4); Monocytes # (auto) 0.71 K/uL (0.11-0.59); Monocytes % (auto) 7.9 %; Neutrophils % (auto) 85.4 %; Platelet Count 195 K/uL (130-400); RDW Coefficient of Variation 13.3 % (11.5-14.5); RDW Standard Deviation 47.9 fL (36.4-46.3); Red Blood Count 3.67 M/uL (4.2-5.4); White Blood Count 9.02 K/uL (4.8-10.8)
[2020-12-29 20:55] LABS: Albumin Level 3.3 gm/dl (3.4-5.0); BUN Creatinine Ratio 26.9 (10-20); Calcium 9.7 mg/dl (8.5-10.1); Creatinine Clr Calc Pharmacy 70.6 ml/min; Est GFR (African American) 107.4 ml/min; Est GFR (Non-African American) 92.7 ml/min
[2020-12-29 20:58] LABS: Albumin Globulin Ratio 1.2 (0.9-2); Bilirubin,Total 0.5 mg/dl (0.2-1); Globulin 2.8 gm/dl (2.5-4.0); Total Protein 6.1 gm/dl (6.4-8.2)
--- NOTE | 2020-12-29 21:05 | Emergency Department Note ---
ED Visit Note HPI: The patient is a 80-year-old woman with a past uncle history of mood disorder/schizoaffective disorder, ? Pseudodementia, osteoporosis who presents to the emergency department from her personal skilled nursing for evaluation after having a fall in the hallway and was found by staff/?witnessed by staff. There is no report of loss of consciousness but there was suspicion for head strike. Patient is a poor historian. Patient denies any pain complaints and initially was refusing CT imaging. [facility] the patient to proceed with CT of the head and x-rays. PE: AFVSS, NAD NC/AT RRR CTAB Abd soft NT/ND MSK: no midline CTL spine tenderness or stepoffs. No discrete tenderness or instability of the pelvis and full range of motion of hips bilaterally. EXT: no edema, erythema. Neuro: grossly intact, mild confusion but alert to self and place. Plan: CT of the head negative for acute process. Plain films of the chest and ri bs demonstrate subacute to chronic fractures of the lateral left 9th, 10th and 11th ribs with mild angulation of the left 11th rib fracture. Patient continued to deny any pain complaints in the emergency department and plan was to discharge the patient back to her personal skilled nursing. Case management did discuss plan with the patient's daughter who expressed additional concern that the patient had been complaining of pelvic pain for some time and has had 8 or so falls in the past couple of months. Thus the patient's daughter requested pelvic imaging. This was performed per request. However the patient has no discrete tenderness or instability of the pelvis and full range of motion of hips bilaterally on my exam. The patient's daughter also expressed concern to our disability case manager that she does not feel as though she has sufficient care at her current [facility] and feels she needs increased nursing care reports that she has been attempting to arrange as outpatient for several months with no success. Thus, she would prefer that the patient be admitted and/or placed. CT was completed and demonstrates the followin. Acute mildly angulated fractures of the left inferior pubic ramus. 2. Subacute to chronic appearing displaced fractures of the right superior and inferior pubic rami. 3. Angulated and displaced fracture of S2 with bilateral sacral insufficiency fractures are also likely subacute to chronic and are new from 04/12/2020. Given the patient's acute pubic ramus fracture in the setting of the patient's daughter's report of frequent falls where she requires increased nursing care will proceed with admission for PT/OT as well as orthopedic consultation and likely placement. CM updated daughter. Case was discussed with Dr. Jenkins, [facility] hospitalist, who will evaluate the patient for admission. I reviewed the patient's past medical history, medications, and visit nursing notes. I discussed the case with the physician critical care physician assistant, examined the patient, and agree with the findings and plan as documented in PAC Jaxon's note and as clarified and updated above. . : Fall at [facility] Qualifiers: Encounter type: initial encounter Qualified Code(s): W19.XXXA - Unspecified fall, initial encounter Contusion of left chest wall Qualifiers: Encounter type: initial encounter Qualified Code(s): S20.212A - Contusion of left front wall of thorax, initial encounter Left rib fracture Qualifiers: Encounter type: subsequent encounter Rib fracture type: multiple ribs Fracture type: closed Fracture healing: with routine healing Qualified Code(s): S22.42XD - Multiple fractures of ribs, left side, subsequent encounter for fracture with routine healing
--- NOTE | 2020-12-29 21:08 | History & Physical Report ---
Date of Service December 29, 2020 Assessment & Plan (1) [facility]: Plan: [facility]/multiple acute and chronic pelvic fractures- Patient denies any issue with pain We will consult PT/OT She should be encouraged to use her walker, which she does not remember if she was using it or not during the fall today Acetaminophen 650 mg p.o. every 6 hours as needed mild pain or fever (2) Multiple pelvic fractures: Plan: Continue calcium and vitamin D (3) Ambulatory dysfunction: Plan: Ambulatory dysfunction/generalized muscle weakness/overall declining state- Consult PT/OT Family asked that patient be admitted to hospital for placement (4) Generalized muscle weakness: Plan: See above (5) Protein calorie malnutrition: Plan: Chronic issue (6) Schizoaffective disorder: Plan: Continue usual medications: Mirtazapine, risperidone and melatonin (7) Hypothyroidism, postablative: Plan: Continue Aleve thyroxine 88 mcg daily (8) GERD (gastroesophageal reflux disease): Plan: Continue famotidine 20 mg daily History of Present Illness Chief Complaint: The patient presents to the emergency department after having a fall in the hallway of her personal long term at [facility] Primary Care Provider: [facility] Yasmany The patient is a 80-year-old female with a past med history including sciatica, sarcoid, mitral vegetation, post ablative hypothyroidism, hyperparathyroidism, papillary thyroid carcinoma, function, IBS, protein calorie, schizoaffective disorder, encephalopathy, and history of previous falls. The patient was found by staff at her personal long term. She does not remember the process leading up to the fall, but only remembers being on the floor. She does not remember if she tripped and fell, and does not remember if she was using her walker. Her HPI and review of systems is somewhat limited by underlying dementia Allergies Allergy/AdvReac Type Severity Reaction Status Date / Time midazolam AdvReac Mild confused, Verified 12/29/20 15:40 off balence buspirone AdvReac Unknown paranoia Unverified 12/29/20 15:40 EPINEPHrine Base AERS Allergy Unknown Unknown Uncoded 12/29/20 15:40 Home Medications Medication Instructions Recorded Confirmed Type docusate sodium 100 mg capsule 100 mg PO BID 04/12/20 12/29/20 History (Colace) levothyroxine 88 mcg tablet 88 mcg PO QAM 04/12/20 12/29/20 History (Synthroid) ascorbic acid (vitamin C) 500 mg 500 mg PO BID 08/11/20 12/29/20 History tablet (Vitamin C) bisacodyl 10 mg rectal suppository 10 mg IL DAILY PRN 08/11/20 12/29/20 History (Dulcolax (bisacodyl)) carboxymethylcellulose sodium 0.25 2 drp OPHTHALMIC (EYE) BID PRN 08/11/20 12/29/20 History % eye drops cholecalciferol (vitamin D3) 50 50 mcg PO DAILY 08/11/20 12/29/20 History mcg (2,000 unit) tablet (Vitamin D3) famotidine 20 mg tablet 20 mg PO DAILY 08/11/20 12/29/20 History magnesium hydroxide 400 mg/5 mL 30 ml PO DAILY PRN 08/11/20 12/29/20 History oral suspension (Milk of Magnesia) melatonin 3 mg disintegrating 3 mg PO HS 08/11/20 12/29/20 History tablet ondansetron 4 mg disintegrating 4 mg PO Q4H PRN 08/11/20 12/29/20 History tablet polyethylene glycol 3350 17 17 g PO DAILY 08/11/20 12/29/20 History gram/dose oral powder acetaminophen 325 mg capsule 650 mg PO QID PRN cap 11/26/20 12/29/20 History (Tylenol) risperidone 0.5 mg tablet 0.5 mg PO BID #60 tab 11/26/20 12/29/20 Rx mirtazapine 15 mg tablet 15 mg PO HS 12/29/20 12/29/20 History Past Med/Surg History Medical History (Updated 12/29/20 @ 23:30 by Darryl Jenkins MD) History of vitamin D deficiency Hypothyroidism, postablative IBS (irritable bowel syndrome) Migraine Mood disorder Osteoporosis Protein calorie malnutrition Sarcoid Surgical History History of sigmoidoscopy S/P breast biopsy S/P hysterectomy with oophorectomy S/P subtotal thyroidectomy S/P thoracotomy Family History Mother Cardiovascular disease Diabetes Hypothyroidism Father Cardiovascular disease Diabetes Hypothyroidism Myocardial infarction Other Congestive heart failure Hypertension Denies family history of Colon cancer Ovarian cancer Prostate cancer Breast cancer Social History Smoking Status: Never smoker Second Hand Exposure: No; Hx Alcohol Use: No Hx Substance Use: No Preferred Language: Indonesian Communication Ability: Impaired Business Process Associate Required: No Beliefs That Will Affect Care: None marital status: Current Living Situation: Alone Current Living Situation Comment: friend with patient in ED current occupational status: retired Feels Safe at Home: Yes Physical Activity Frequency: Does not Exercise Seatbelt Use: always Assistive Devices: None Review of Systems Review of Systems: Limited by underlying dementia Physical Exam Physical Exam: The patient is awake, alert, very thin, normocephalic and atraumatic, lying in bed and in no acute distress. HEENT--PERRL, EOMI, mucous membranes and oropharynx dry. Neck--supple. No JVD. No bruits. Thyroid normal, trachea midline, no adenopathy. Heart--normal S1 and S2. No murmurs, rubs or gallops. Lungs--clear bilaterally, no respiratory distress, no accessory muscle use. Abdomen--normal bowel sounds and soft. Nontender. Nondistended, no hernias or masses, no organomegaly. Extremities--no cyanosis or clubbing. No edema. Dermatologic--skin is mildly dry. Few scattered ecchymoses Neurologic--cranial nerves II through XII grossly intact. Rheumatologic--limited exam Psychiatric--cooperative, but history limited due to dementia Results & Data Results & Data ([facility]) Vital Signs (Past 12 Hours) Vital Signs Temp Pulse Pulse Resp BP BP Pulse Ox 12/29/20 20:48 69 18 114/65 96 12/29/20 18:48 67 16 100/57 L 95 12/29/20 16:48 71 18 106/60 96 12/29/20 15:05 97.5 F L 73 18 122/73 95 12/29/20 14:48 79 16 122/73 95 Laboratory Results Laboratory Results WBC 9.02 K/uL (4.8-10.8) 12/29/20 20:28 RBC 3.67 M/uL (4.2-5.4) L 12/29/20 20:28 Hgb 12.0 g/dL (12.0-16.0) 12/29/20: Hct 36.2 % (37-47) L 12/29/20: MCV 98.6 fL (80-100) 12/29/20: MCH 32.7 pg (25-34) 12/29/20: MCHC 33.1 g/dL (32-36) 12/29/20: RDW Std Deviation 47.9 fL (36.4-46.3) H 12/29/20: RDW Coeff of Christophe 13.3 % (11.5-14.5) 12/29/20: Plt Count 195 K/uL (130-400) 12/29/20: MPV 9.6 fL (7.4-10.4) 12/29/20: Immature Gran % (Auto) 0.1 % 12/29/20: Neut % (Auto) 85.4 % 12/29/20: Lymph % (Auto) 6.3 % 12/29/20: Limestone % (Auto) 7.9 % 12/29/20: Eos % (Auto) 0.2 % 12/29/20: Baso % (Auto) 0.1 % 12/29/20: Neut # (Auto) 7.70 K/uL (1.4-6.5) H 12/29/20: Lymph # (Auto) 0.57 K/uL (1.2-3.4) L 12/29/20: Limestone # (Auto) 0.71 K/uL (0.11-0.59) H 12/29/20: Eos # (Auto) 0.02 K/uL (0-0.5) 12/29/20: Baso # (Auto) 0.01 K/uL (0-0.2) 12/29/20: Immature Gran # (Auto) 0.01 K/uL (0.00-0.02) 12/29/20 20: Sodium 136 mmol/L (136-145) 12/29/20: Potassium 4.0 mmol/L (3.5-5.1) 09/25/21 20:28 Chloride 104 mmol/L (98-107) 12/29/20 20:28 Carbon Dioxide 29 mmol/L (21-32) 12/29/20 20: Anion Gap 4.0 (3-11) 12/29/20 20:28 BUN 13 mg/dl (7-18) 12/29/20 20: Creatinine 0.50 mg/dl (0.6-1.2) L 12/29/20 20: Est Cr Clr Drug Dosing 70.6 ml/min 12/29/20 20:28 Est GFR ( Amer) 107.4 ml/min 12/29/20 20:28 Est GFR (Non-Af Amer) 92.7 ml/min 12/29/20 20: BUN/Creatinine Ratio 26.9 (10-20) H 12/29/20 20: Glucose 112 mg/dl (70-99) H 12/29/20 20: Calcium 9.7 mg/dl (8.5-10.1) 12/29/20 20: Total Bilirubin 0.5 mg/dl (0.2-1) 12/29/20 20:28 AST 20 U/L (15-37) 12/29/20 20: ALT 28 U/L (12-78) 12/29/20 20: Alkaline Phosphatase 84 U/L (45-117) 12/29/20 20: Total Protein 6.1 gm/dl (6.4-8.2) L 12/29/20 20: Albumin 3.3 gm/dl (3.4-5.0) L 12/29/20 20: Globulin 2.8 gm/dl (2.5-4.0) 12/29/20 20: Albumin/Globulin Ratio 1.2 (0.9-2) 12/29/20 20:28 COVID-19 Eval Order Covid19 at [facility] 12/29/20 20:26 SARS-CoV-2 (PCR) NEGATIVE (Negative) 12/29/20 20:[address] 12/29/20 15:24 CT head/brain wo con CLINICAL HISTORY: 80 years-old Female with fall. Acute head trauma status post fall TECHNIQUE: Multiple axial CT images of the head were obtained without contrast. A dose lowering technique was utilized adhering to the principles of ALARA. CT DOSE: 720.23 mGy.cm COMPARISON: Head CT 04/12/2020, brain MRI 06/14/2020 FINDINGS: No acute intracranial hemorrhage, midline shift, intracranial mass, hydrocephalus, territorial ischemia or abnormal extra-axial collection. Age- related involutional changes. Cerebral vascular calcifications. White matter hypodensities suggest chronic microvascular ischemic disease. Senescent calcifications of the basal ganglia. The calvarium is intact. Small left frontal temporal scalp hematoma measures 3.2 x 0.4 cm. Prior bilateral lens repair. The paranasal sinuses, mastoid air cells, and middle ear cavities are clear. IMPRESSION: 1. No acute intracranial abnormality or calvarial fracture. 2. Small left scalp hematoma. ACT 112: Negative or not required by law. The above report was generated using voice recognition software. It may contain grammatical, syntax or spelling errors. Electronically signed by: Elie Landers M.D. 12/29/2020 4:19 PM Ribs w/Chest X-Ray 12/29/20 15:24 XR ribs LT min 2V w [id number] HISTORY: 80 years-old Female fall, left rib pain . Acute left-sided rib pain status post fall COMPARISON: Chest radiograph 08/11/2020 TECHNIQUE: AP view of the chest with 4 views of the left ribs FINDINGS: Cardiac mediastinal and hilar silhouettes are within normal limits. Hyperinflation with chronic interstitial coarsening. Degenerative changes of the shoulders and spine. Subacute to chronic appearing fractures of the lateral left ninth, 10th and 11th ribs with mild angulation involving the left 11th rib fracture. IMPRESSION: 1. No acute processes of the chest. 2. No acute rib fracture or pneumothorax. 3. Subacute to chronic fractures of the lateral left 9th, 10th and 11th ribs with mild angulation of the left 11th rib fracture. ACT 112: Negative or not required by law. The above report was generated using voice recognition software. It may contain grammatical, syntax or spelling errors. Electronically signed by: Elie Landers M.D. 12/29/2020 6:[address] 12/29/20 19:22 CT bony pelvis wo con HISTORY: 80 years-old Female pain fall acute pelvic pain status post fall COMPARISON: CT abdomen and pelvis 04/12/2020 TECHNIQUE: Multiple axial CT images of the pelvis were obtained without the use of IV contrast. A dose lowering technique was used consistent with the principals of EREN. FINDINGS: Distended urinary bladder with mild wall thickening. Moderate fecal retention. Fluid attenuating structure within the abdominal right lower quadrant is suggestive of a probable small bowel loop. Atherosclerosis of the aorta and iliac arteries. Demineralized appearance of the bones. Subacute fracture of the mid sacrum at the level of S2 demonstrates apex dorsal angulation with volar displacement of approximately 11 mm. Bilateral sacral insufficiency fractures with sclerosis. Subacute to chronic displaced fractures of the right superior and inferior pubic rami are new from comparison. Acute mildly angulated fractures of the left inferior pubic ramus. Moderate osteoarthritis of the hips without acute fracture, dislocation or avascular necrosis. IMPRESSION: 1. Acute mildly angulated fractures of the left inferior pubic ramus. 2. Subacute to chronic appearing displaced fractures of the right superior and inferior pubic rami. 3. Angulated and displaced fracture of S2 with bilateral sacral insufficiency fractures are also likely subacute to chronic and are new from 04/12/2020. ACT 112: Negative or not required by law. The above report was generated using voice recognition software. It may contain grammatical, syntax or spelling errors. Electronically signed by: Elie Landers M.D. 12/29/2020 8:06 PM Code Status & VTE Plan Code Status DNR DNI VTE Prophylaxis Plan VTE Prophylaxis will be ordered: Yes PG Care Time/CCT Total # of Minutes Spent Total Time Spent with Patient: Total time spent is greater than 50% in coordin ation of care (as documented) at patient's floor/unit and/or counseling patient: Coding Level of Care Code 26749 Initial Inpt Care Lvl 2 Diagnoses Schizoaffective disorder F25.9 Protein calorie malnutrition E46 Generalized muscle weakness M62.81 Ambulatory dysfunction R26.2 [facility] at [facility] W19.XXXA; Y92.129 Encounter type: initial encounter Multiple pelvic fractures S32.82XA Hypothyroidism, postablative E89.0 GERD (gastroesophageal reflux disease) K21.9 (1) Fall at [facility] Encounter type: initial encounter Qualified Code(s): W19.XXXA - Unspecified fall, initial encounter; Y92.129 - Unspecified place in [facility] as the place of occurrence of the external cause
[2020-12-29] MEDS ORDERED: ONDANSETRON INJ 2 MG/ML 2 ML VIAL IV PRN (23:08)
[2020-12-29] MEDS ORDERED: bisacodyL 10 MG SUPP PR PRN (23:08)
[2020-12-29] MEDS ORDERED: MAGNESIUM HYDROXIDE SUSP 30 ML UDC PO PRN (23:08)
[2020-12-29] MEDS ORDERED: MELATONIN 3 MG TAB PO PRN (23:55)
[2020-12-29] MEDS ORDERED: ONDANSETRON 4 MG OD TAB PO PRN (23:58)
[2020-12-30 01:11] LABS: Appearance Urine Cloudy (Clear); Bacteria Urine Automated Negative (Negative); Bilirubin Urine Negative (Negative); Blood Urine Negative (Negative); Cast Urine Automated 0 /lpf (0-5); Color Urine Yellow; Epithelial Cell Urine Auto 0-5 /lpf (0-5); Glucose Urine UA Negative (Negative); Ketones Urine Negative (Negative); Leukocyte Esterase Urine Negative (Negative); Nitrite Urine Negative (Negative); Protein Urine Negative (Negative); RBC Urine Automated 0-4 /hpf (0-4); Specific Gravity Urine 1.009 (1.000-1.030); Urobilinogen Urine Negative (Negative)
[2020-12-30] MEDS: LEVOTHYROXINE SODIUM 88 MCG TABLET PO SCH (05:19)
[2020-12-30] MEDS: CHOLECALCIFEROL 1,000 UNITS 25 MCG TAB PO SCH (07:55)
[2020-12-30] MEDS: HEPARIN SOD 5,000 UNIT/0.5 ML VIAL SQ SCH ×2 (07:55→19:43)
[2020-12-30] MEDS: ASCORBIC ACID 500 MG TAB PO SCH ×2 (07:55→19:40)
[2020-12-30] MEDS: risperiDONE 0.5 MG TABLET PO SCH ×2 (07:55→19:41)
[2020-12-30] MEDS: FAMOTIDINE 20 MG TAB PO SCH (07:55)
[2020-12-30] MEDS: DOCUSATE SODIUM 100 MG CAP PO SCH ×2 (07:55→19:43)
[2020-12-30] MEDS: POLYETHYLENE (MIRALAX) 17 GM PACK PO SCH (07:55)
--- NOTE | 2020-12-30 15:35 | Hospitalist Progress Note ---
Date of Service December 30, 2020 Assessment & Plan (1) Fall at longterm: Plan: 80 y/o F here with fall (1) Fall at longterm: Generalized weakness/Ambulatory Dysfunctio Fall at longterm/multiple acute and chronic pelvic fractures- We will consult PT/OT She should be encouraged to use her walker, which she does not remember if she was using it or not during the fall today Family asked that patient be admitted to hospital for placement Acetaminophen 650 mg p.o. every 6 hours as needed mild pain or fever (2) Multiple pelvic fractures: Continue calcium and vitamin D (5) Protein calorie malnutrition: Chronic issue (6) Schizoaffective disorder: Continue usual medications: Mirtazapine, risperidone and melatonin (7) Hypothyroidism, postablative: Continue Aleve thyroxine 88 mcg daily (8) GERD (gastroesophageal reflux disease): Continue famotidine 20 mg daily Heparin SQ DNR (2) Multiple pelvic fractures: (3) Ambulatory dysfunction: (4) Generalized muscle weakness: (5) Protein calorie malnutrition: (6) Schizoaffective disorder: (7) Hypothyroidism, postablative: (8) GERD (gastroesophageal reflux disease): Admission and Anticipated Discharge Date Admission Date: December 29, 2020 Subjective Pain with any movement. comfortable when sitting still. no chest pain, shortness of breath. Physical Exam Constitutional: WD/WN, vitals as above Respiratory: normal respiratory effort, lungs clear to auscultation Cardiovascular: RRR, no murmur, no edema Results & Data Results & Data ([facility]) Vital Signs (Past 12 Hours) Vital Signs Temp Pulse Resp BP Pulse Ox 12/30/20 06:35 36.5 C 64 16 107/64 95 (1) Fall at longterm Encounter type: initial encounter Qualified Code(s): W19.XXXA - Unspecified fall, initial encounter; Y92.129 - Unspecified place in longterm as the place of occurrence of the external cause
[2020-12-30] MEDS: MIRTAZAPINE TAB 15 MG TAB PO SCH (19:41)
[2020-12-30] MEDS: ARTIFICIAL TEARS OP PRN (21:34)
[2020-12-31] MEDS: LEVOTHYROXINE SODIUM 88 MCG TABLET PO SCH (05:40)
[2020-12-31 06:12] LABS: Basophils # (auto) 0.01 K/uL (0-0.2); Basophils % (auto) 0.3 %; Eosinophils # (auto) 0.02 K/uL (0-0.5); Eosinophils % (auto) 0.6 %; Hematocrit (blood only) 37.5 % (37-47); Hemoglobin 12.5 g/dL (12.0-16.0); Lymphocytes # (auto) 0.67 K/uL (1.2-3.4); Lymphocytes % (auto) 18.5 %; Mean Corpuscular Hemoglobin 32.6 pg (25-34); Mean Corpuscular Hgb Conc 33.3 g/dL (32-36); Mean Corpuscular Volume 97.7 fL (80-100); Mean Platelet Volume 9.8 fL (7.4-10.4); Monocytes # (auto) 0.44 K/uL (0.11-0.59); Monocytes % (auto) 12.2 %; Neutrophils # (auto) 2.48 K/uL (1.4-6.5); Neutrophils % (auto) 68.4 %; Platelet Count 178 K/uL (130-400); RDW Coefficient of Variation 13.3 % (11.5-14.5); RDW Standard Deviation 47.4 fL (36.4-46.3); Red Blood Count 3.84 M/uL (4.2-5.4); White Blood Count 3.62 K/uL (4.8-10.8)
[2020-12-31 06:37] LABS: BUN Creatinine Ratio 27.9 (10-20); Calcium 9.6 mg/dl (8.5-10.1); Est GFR (African American) 97.1 ml/min; Est GFR (Non-African American) 83.8 ml/min; Potassium 3.9 mmol/L (3.5-5.1)
[2020-12-31 06:39] LABS: Bilirubin,Total 0.6 mg/dl (0.2-1)
[2020-12-31] MEDS: risperiDONE 0.5 MG TABLET PO SCH ×2 (08:56→20:17)
[2020-12-31] MEDS: ASCORBIC ACID 500 MG TAB PO SCH ×2 (08:56→20:16)
[2020-12-31] MEDS: DOCUSATE SODIUM 100 MG CAP PO SCH ×2 (08:56→20:17)
[2020-12-31] MEDS: CHOLECALCIFEROL 1,000 UNITS 25 MCG TAB PO SCH (08:56)
[2020-12-31] MEDS: FAMOTIDINE 20 MG TAB PO SCH (08:56)
[2020-12-31] MEDS: HEPARIN SOD 5,000 UNIT/0.5 ML VIAL SQ SCH ×2 (08:57→20:17)
[2020-12-31] MEDS: POLYETHYLENE (MIRALAX) 17 GM PACK PO SCH (08:57)
--- NOTE | 2020-12-31 14:19 | Hospitalist Progress Note ---
Date of Service December 31, 2020 Assessment & Plan (1) Fall: Plan: 80 y/o F here with fall (1) [facility] at [facility]: Generalized weakness/Ambulatory Dysfunctio Fall at [facility]/multiple acute and chronic pelvic fractures- PT/OT consulted, recommend SNF She should be encouraged to use her walker, which she does not remember if she was using it or not during the fall today Family asked that patient be admitted to hospital for placement Acetaminophen 650 mg p.o. every 6 hours as needed mild pain or fever currently awaiting placement (2) Multiple pelvic fractures: Continue calcium and vitamin D (5) Protein calorie malnutrition: Chronic issue (6) Schizoaffective disorder: Continue usual medications: Mirtazapine, risperidone and melatonin (7) Hypothyroidism, postablative: Continue Aleve thyroxine 88 mcg daily (8) GERD (gastroesophageal reflux disease): Continue famotidine 20 mg daily Heparin SQ DNR (2) Multiple pelvic fractures: (3) Ambulatory dysfunction: (4) Generalized muscle weakness: (5) Protein calorie malnutrition: (6) Schizoaffective disorder: (7) Hypothyroidism, postablative: (8) GERD (gastroesophageal reflux disease): Admission and Anticipated Discharge Date Admission Date: December 29, 2020 (2) Multiple pelvic fractures: Admission and Anticipated Discharge Date Admission Date: December 29, 2020 Supervising Physician Co-Signing Physician Notes I personally examined the patient and verified all osorio points of history and exam, discussed case, and agree with decision making with Dr Barajas Feeling better overallstill pain, but mostly with pivot and turn, is able to sit without a whole lot of pain and is able to walk straight forward without a whole lot of pain. Discussed with case managementstill waiting on rehab options. Vitals noted, in general she is awake alert pleasant no distress. HEENT normocephalic atraumatic mucous membranes moist. Breathing unlabored no accessory muscle use good effort. Skin shows no rashes no pallor or icterus. Neuro without focal deficits. Fall with probable osteoporotic fracture of right superior and inferior pubic rami, left inferior pubic ramus and angulated and displaced fracture of S2 with bilateral sacral insufficiency fractures that are also likely subacute to chronic -pain control, PT/OT, anticipate SNF with rehab emphasis. Outpatient bone health work-up. Otherwise as above. Subjective 80yo Female H falls prev fractures here for fall and hip fracture. Patient seen seated next to bedside, comfortable and pleasant, currently not in pain. Patient understands her family is looking into SNF. Review of Systems Review of Systems: Negative fever chills Negative headache dizziness Negative chest pain palpitations SOB Negative nausea vomitting diarrhea constipation Negative numbness tingling rash swelling Physical Exam Physical Exam: General: Well appearing, age appropriate Heart: RRR, +S1 S2, no murmurs/gallops/rubs Lungs: cta b/l, no wheezes/rales/rhonchi Abd: soft, NT/ND, +BS Extremities: no swelling, no rashes Results & Data Results & Data ([facility]) Vital Signs (Past 12 Hours) Vital Signs Temp Pulse Resp BP Pulse Ox 12/31/20 07:22 36.4 C L 57 L 17 111/70 96 Laboratory Results 12/31/20 12/31/20 Range/Units 05:36 05:36 WBC 3.62 L (4.8-10.8) K/uL RBC 3.84 L (4.2-5.4) M/uL Hgb 12.5 (12.0-16.0) g/dL Hct 37.5 (37-47) % MCV 97.7 (80-100) fL MCH 32.6 (25-34) pg MCHC 33.3 (32-36) g/dL RDW Std Deviation 47.4 H (36.4-46.3) fL RDW Coeff of Christophe 13.3 (11.5-14.5) % Plt Count 178 (130-400) K/uL MPV 9.8 (7.4-10.4) fL Immature Gran % (Auto) 0.0 % Neut % (Auto) 68.4 % Lymph % (Auto) 18.5 % [place] % (Auto) 12.2 % Eos % (Auto) 0.6 % Baso % (Auto) 0.3 % Neut # (Auto) 2.48 (1.4-6.5) K/uL Lymph # (Auto) 0.67 L (1.2-3.4) K/uL [place] # (Auto) 0.44 (0.11-0.59) K/uL Eos # (Auto) 0.02 (0-0.5) K/uL Baso # (Auto) 0.01 (0-0.2) K/uL Immature Gran # (Auto) 0.00 (0.00-0.02) K/uL Sodium 137 (136-145) mmol/L Potassium 3.9 (3.5-5.1) mmol/L Chloride 102 (98-107) mmol/L Carbon Dioxide 33 H (21-32) mmol/L Anion Gap 2.0 L (3-11) BUN 19 H (7-18) mg/dl Creatinine 0.68 (0.6-1.2) mg/dl Est Cr Clr Drug Dosing 52.0 ml/min Est GFR ( Amer) 97.1 ml/min Est GFR (Non-Af Amer) 83.8 ml/min BUN/Creatinine Ratio 27.9 H (10-20) Glucose 92 (70-99) mg/dl Calcium 9.6 (8.5-10.1) mg/dl Total Bilirubin 0.6 (0.2-1) mg/dl AST 22 (15-37) U/L ALT 22 (12-78) U/L Alkaline Phosphatase 85 (45-117) U/L Total Protein 6.0 L (6.4-8.2) gm/dl Albumin 3.0 L (3.4-5.0) gm/dl Globulin 3.0 (2.5-4.0) gm/dl Albumin/Globulin Ratio 1.0 (0.9-2) Diagnostic Findings Impressions Head CT 12/29/20 15:24 CT head/brain wo con CLINICAL HISTORY: 80 years-old Female with fall. Acute head trauma status post fall TECHNIQUE: Multiple axial CT images of the head were obtained without contrast. A dose lowering technique was utilized adhering to the principles of ALARA. CT DOSE: 720.23 mGy.cm COMPARISON: Head CT 04/12/2020, brain MRI 06/14/2020 FINDINGS: No acute intracranial hemorrhage, midline shift, intracranial mass, hydrocephalus, territorial ischemia or abnormal extra-axial collection. Age- related involutional changes. Cerebral vascular calcifications. White matter hypodensities suggest chronic microvascular ischemic disease. Senescent calcifications of the basal ganglia. The calvarium is intact. Small left frontal temporal scalp hematoma measures 3.2 x 0.4 cm. Prior bilateral lens repair. The paranasal sinuses, mastoid air cells, and middle ear cavities are clear. IMPRESSION: 1. No acute intracranial abnormality or calvarial fracture. 2. Small left scalp hematoma. ACT 112: Negative or not required by law. The above report was generated using voice recognition software. It may contain grammatical, syntax or spelling errors. Electronically signed by: Elie Landers M.D. 12/29/2020 4:19 PM Ribs w/Chest X-Ray 12/29/20 15:24 XR ribs LT min 2V w [id number] HISTORY: 80 years-old Female fall, left rib pain . Acute left-sided rib pain status post fall COMPARISON: Chest radiograph 08/11/2020 TECHNIQUE: AP view of the chest with 4 views of the left ribs FINDINGS: Cardiac mediastinal and hilar silhouettes are within normal limits. Hyperinflation with chronic interstitial coarsening. Degenerative changes of the shoulders and spine. Subacute to chronic appearing fractures of the lateral left ninth, 10th and 11th ribs with mild angulation involving the left 11th rib fracture. IMPRESSION: 1. No acute processes of the chest. 2. No acute rib fracture or pneumothorax. 3. Subacute to chronic fractures of the lateral left 9th, 10th and 11th ribs with mild angulation of the left 11th rib fracture. ACT 112: Negative or not required by law. The above report was generated using voice recognition software. It may contain grammatical, syntax or spelling errors. Electronically signed by: Elie Landers M.D. 12/29/2020 6:[address] 12/29/20 19:22 CT bony pelvis wo con HISTORY: 80 years-old Female pain fall acute pelvic pain status post fall COMPARISON: CT abdomen and pelvis 04/12/2020 TECHNIQUE: Multiple axial CT images of the pelvis were obtained without the use of IV contrast. A dose lowering technique was used consistent with the principals of ALARA. FINDINGS: Distended urinary bladder with mild wall thickening. Moderate fecal retention. Fluid attenuating structure within the abdominal right lower quadrant is suggestive of a probable small bowel loop. Atherosclerosis of the aorta and iliac arteries. Demineralized appearance of the bones. Subacute fracture of the mid sacrum at the level of S2 demonstrates apex dorsal angulation with volar displacement of approximately 11 mm. Bilateral sacral insufficiency fractures with sclerosis. Subacute to chronic displaced fractures of the right superior and inferior pubic rami are new from comparison. Acute mildly angulated fractures of the left inferior pubic ramus. Moderate osteoarthritis of the hips without acute fracture, dislocation or avascular necrosis. IMPRESSION: 1. Acute mildly angulated fractures of the left inferior pubic ramus. 2. Subacute to chronic appearing displaced fractures of the right superior and inferior pubic rami. 3. Angulated and displaced fracture of S2 with bilateral sacral insufficiency fractures are also likely subacute to chronic and are new from 04/12/2020. ACT 112: Negative or not required by law. The above report was generated using voice recognition software. It may contain grammatical, syntax or spelling errors. Electronically signed by: Elie Landers M.D. 12/29/2020 8:06 PM Medications Administered Current Inpatient Medications Acetaminophen (Acetaminophen 325 Mg Tab) 650 mg PO Q4H PRN PRN Reason: pain/fever Stop: 01/28/21 23:07 Artificial Tears (Artificial Tears) 2 drops OP BID PRN PRN Reason: Dry Eyes Stop: 01/28/21 23:57 Last Admin: 12/30/20 21:34 Dose: 2 drops Documented by: Ascorbic Acid (Ascorbic Acid 500 Mg Tab) 500 mg PO BID HENRIQUE Stop: 01/29/21 08:59 Last Admin: 12/31/20 08:56 Dose: 500 mg Documented by: Bisacodyl (Bisacodyl 10 Mg Supp) [address] DAILY PRN PRN Reason: Constipation Stop: 01/28/21 23:07 Docusate Sodium (Docusate Sodium 100 Mg Cap) 100 mg PO BID HENRIQUE Stop: 01/29/21 08:59 Last Admin: 12/31/20 08:56 Dose: 100 mg Documented by: Famotidine (Famotidine 20 Mg Tab) 20 mg PO DAILY HENRIQUE Stop: 01/29/21 08:59 Last Admin: 12/31/20 08:56 Dose: 20 mg Documented by: Heparin Sodium (Porcine) (Heparin Sod 5,000 Unit/0.5 Ml Vial) 5,000 units SQ Q12 HENRIQUE Stop: 01/29/21 08:59 Last Admin: 12/31/20 08:57 Dose: 5,000 units Documented by: Levothyroxine Sodium (Levothyroxine Sodium 88 Mcg Tablet) 88 mcg PO DAILYBB HENRIQUE Stop: 01/29/21 06:29 Last Admin: 12/31/20 05:40 Dose: 88 mcg Documented by: Magnesium Hydroxide (Magnesium Hydroxide Susp 30 Ml Udc) 30 ml PO DAILY PRN PRN Reason: Constipation Stop: 01/28/21 23:07 Melatonin (Melatonin 3 Mg Tab) 3 mg PO HSZ PRN PRN Reason: Sleep Stop: 01/28/21 23:54 Mirtazapine (Mirtazapine Tab 15 Mg Tab) 15 mg PO HS HENRIQUE Stop: 01/29/21 20:59 Last Admin: 12/30/20 19:41 Dose: 15 mg Documented by: Ondansetron HCl (Ondansetron 4 Mg Od Tab) 4 mg PO Q4H PRN PRN Reason: Nausea/Vomiting Stop: 01/28/21 23:57 Ondansetron HCl (Ondansetron Inj 2 Mg/Ml 2 Ml Vial) 4 mg IV Q6H PRN PRN Reason: Nausea Stop: 01/28/21 23:07 Polyethylene Glycol (Polyethylene (Miralax) 17 Gm Pack) 17 gm PO DAILY HENRIQUE Stop: 01/29/21 08:59 Last Admin: 12/31/20 08:57 Dose: 17 gm Documented by: Risperidone (Risperidone 0.5 Mg Tablet) 0.5 mg PO BID HENRIQUE Stop: 01/29/21 08:59 Last Admin: 12/31/20 08:56 Dose: 0.5 mg Documented by: Vitamin D (Cholecalciferol 1,000 Units 25 Mcg Tab) 2,000 units PO DAILY HENRIQUE Stop: 01/29/21 08:59 Last Admin: 12/31/20 08:56 Dose: 2,000 units Documented by: Resident Activity Tracking Resident Involvement: Resident Care Provided Care Provided: Adult Hospital Medicine (1) Fall Encounter type: initial encounter Qualified Code(s): W19.XXXA - Unspecified fall, initial encounter
--- NOTE | 2020-12-31 17:54 | Billing Data ---
Date of Service December 31, 2020 Coding Level of Care Code 42503 Subseq Hosp Care Lvl 2
[2020-12-31] MEDS: MIRTAZAPINE TAB 15 MG TAB PO SCH (20:16)
[2021-01-01] MEDS: LEVOTHYROXINE SODIUM 88 MCG TABLET PO SCH (05:15)
[2021-01-01 06:35] LABS: Basophils # (auto) 0.01 K/uL (0-0.2); Basophils % (auto) 0.2 %; Eosinophils # (auto) 0.04 K/uL (0-0.5); Eosinophils % (auto) 0.8 %; Hematocrit (blood only) 38.3 % (37-47); Hemoglobin 12.7 g/dL (12.0-16.0); Lymphocytes # (auto) 0.89 K/uL (1.2-3.4); Lymphocytes % (auto) 18.1 %; Mean Corpuscular Hemoglobin 32.2 pg (25-34); Mean Corpuscular Hgb Conc 33.2 g/dL (32-36); Mean Corpuscular Volume 97.2 fL (80-100); Monocytes # (auto) 0.59 K/uL (0.11-0.59); Neutrophils % (auto) 68.9 %; Platelet Count 196 K/uL (130-400); RDW Coefficient of Variation 13.4 % (11.5-14.5); RDW Standard Deviation 48.3 fL (36.4-46.3); Red Blood Count 3.94 M/uL (4.2-5.4); White Blood Count 4.93 K/uL (4.8-10.8)
[2021-01-01 07:03] LABS: BUN Creatinine Ratio 31.4 (10-20); Calcium 9.4 mg/dl (8.5-10.1); Creatinine Clr Calc Pharmacy 49.8 ml/min; Est GFR (African American) 94.6 ml/min; Est GFR (Non-African American) 81.6 ml/min; Potassium 3.8 mmol/L (3.5-5.1)
[2021-01-01 07:05] LABS: Albumin Globulin Ratio 0.9 (0.9-2); Bilirubin,Total 0.5 mg/dl (0.2-1); Globulin 3.2 gm/dl (2.5-4.0); Total Protein 6.2 gm/dl (6.4-8.2)
[2021-01-01] MEDS: CHOLECALCIFEROL 1,000 UNITS 25 MCG TAB PO SCH (09:00)
[2021-01-01] MEDS: FAMOTIDINE 20 MG TAB PO SCH (09:00)
[2021-01-01] MEDS: HEPARIN SOD 5,000 UNIT/0.5 ML VIAL SQ SCH ×2 (09:01→20:10)
[2021-01-01] MEDS: ASCORBIC ACID 500 MG TAB PO SCH ×2 (09:01→20:10)
[2021-01-01] MEDS: POLYETHYLENE (MIRALAX) 17 GM PACK PO SCH (09:01)
[2021-01-01] MEDS: DOCUSATE SODIUM 100 MG CAP PO SCH ×2 (09:01→20:10)
[2021-01-01] MEDS: ACETAMINOPHEN 325 MG TAB PO PRN (09:41)
[2021-01-01] MEDS: risperiDONE 0.5 MG TABLET PO SCH ×2 (10:09→20:10)
--- NOTE | 2021-01-01 14:38 | Hospitalist Progress Note ---
Date of Service January 01, 2021 Assessment & Plan (1) Fall: Plan: 80 y/o F here with fall (1) Fall at skilled nursing: Generalized weakness/Ambulatory Dysfunctio Fall at skilled nursing/multiple acute and chronic pelvic and rib fractures- PT/OT consulted, recommend SNF She should be encouraged to use her walker, which she does not remember if she was using it or not during the fall today Family asked that patient be admitted to hospital for placement Acetaminophen 650 mg p.o. every 6 hours as needed mild pain or fever currently awaiting placement (2) Multiple pelvic fractures: Continue calcium and vitamin D (5) Protein calorie malnutrition: Chronic issue (6) Schizoaffective disorder: Continue usual medications: Mirtazapine, risperidone and melatonin (7) Hypothyroidism, postablative: Continue Aleve thyroxine 88 mcg daily (8) GERD (gastroesophageal reflux disease): Continue famotidine 20 mg daily FENa: regular Code Status: DNR/DNI DVT PPX: heparin PT/OT: ordered, recommend inpt rehab, SNF Case Management: [] Dispo: inpt rehab, SNF Angella Barajas Do PGY 1, FCM (2) Multiple pelvic fractures: Admission and Anticipated Discharge Date Admission Date: December 29, 2020 Supervising Physician Co-Signing Physician Notes I personally examined the patient and verified all osorio points of history and exam, discussed case, and agree with decision making with Dr Barajas resting comfortably awaiting snf Vitals noted, resting comforatably nad. HEENT normocephalic atraumatic mucous membranes moist. Breathing unlabored no accessory muscle use good effort. Skin shows no rashes no pallor or icterus. Neuro without focal deficits at rest. Fall with probable osteoporotic fracture of right superior and inferior pubic rami, left inferior pubic ramus and angulated and displaced fracture of S2 with bilateral sacral insufficiency fractures that are also likely subacute to chronic -pain control, PT/OT, anticipate SNF with rehab emphasis once available. Outpatient bone health work- up. Otherwise as above. Subjective 80yo Female PMH falls prev fractures here for fall and hip fracture. Patient seen seated next to bedside, comfortable and pleasant, currently not in pain. Patient understands her family is looking into SNF. She states she had a good a ppetite, slept well last night. Patient daughter notified of current condition, is still looking for SNF and rehab location. Review of Systems Review of Systems: Negative fever chills Negative headache dizziness Negative chest pain palpitations SOB Negative nausea vomitting diarrhea constipation Negative numbness tingling rash swelling Physical Exam Physical Exam: General: Well appearing, age appropriate Heart: RRR, +S1 S2, no murmurs/gallops/rubs Lungs: cta b/l, no wheezes/rales/rhonchi Abd: soft, NT/ND, +BS Extremities: no swelling, no rashes Results & Data Results & Data ([facility]) Vital Signs (Past 12 Hours) Vital Signs Temp Pulse Resp BP Pulse Ox 01/01/21 08:38 36.3 C L 64 16 133/82 97 Laboratory Results 01/01/21 01/01/21 Range/Units 05:24 05:24 WBC 4.93 (4.8-10.8) K/uL RBC 3.94 L (4.2-5.4) M/uL Hgb 12.7 (12.0-16.0) g/dL Hct 38.3 (37-47) % MCV 97.2 (80-100) fL MCH 32.2 (25-34) pg MCHC 33.2 (32-36) g/dL RDW Std Deviation 48.3 H (36.4-46.3) fL RDW Coeff of Christophe 13.4 (11.5-14.5) % Plt Count 196 (130-400) K/uL MPV 10.0 (7.4-10.4) fL Immature Gran % (Auto) 0.0 % Neut % (Auto) 68.9 % Lymph % (Auto) 18.1 % [place] % (Auto) 12.0 % Eos % (Auto) 0.8 % Baso % (Auto) 0.2 % Neut # (Auto) 3.40 (1.4-6.5) K/uL Lymph # (Auto) 0.89 L (1.2-3.4) K/uL [place] # (Auto) 0.59 (0.11-0.59) K/uL Eos # (Auto) 0.04 (0-0.5) K/uL Baso # (Auto) 0.01 (0-0.2) K/uL Immature Gran # (Auto) 0.00 (0.00-0.02) K/uL Sodium 136 (136-145) mmol/L Potassium 3.8 (3.5-5.1) mmol/L Chloride 103 (98-107) mmol/L Carbon Dioxide 31 (21-32) mmol/L Anion Gap 2.0 L (3-11) BUN 22 H (7-18) mg/dl Creatinine 0.71 (0.6-1.2) mg/dl Est Cr Clr Drug Dosing 49.8 ml/min Est GFR ( Amer) 94.6 ml/min Est GFR (Non-Af Amer) 81.6 ml/min BUN/Creatinine Ratio 31.4 H (10-20) Glucose 86 (70-99) mg/dl Calcium 9.4 (8.5-10.1) mg/dl Total Bilirubin 0.5 (0.2-1) mg/dl AST 14 L (15-37) U/L ALT 22 (12-78) U/L Alkaline Phosphatase 86 (45-117) U/L Total Protein 6.2 L (6.4-8.2) gm/dl Albumin 3.0 L (3.4-5.0) gm/dl Globulin 3.2 (2.5-4.0) gm/dl Albumin/Globulin Ratio 0.9 (0.9-2) Medications Administered Current Inpatient Medications Acetaminophen (Acetaminophen 325 Mg Tab) 650 mg PO Q4H PRN PRN Reason: pain/fever Stop: 01/28/21 23:07 Last Admin: 01/01/21 09:41 Dose: 650 mg Documented by: Artificial Tears (Artificial Tears) 2 drops OP BID PRN PRN Reason: Dry Eyes Stop: 01/28/21 23:57 Last Admin: 12/30/20 21:34 Dose: 2 drops Documented by: Ascorbic Acid (Ascorbic Acid 500 Mg Tab) 500 mg PO BID [facility] Stop: 01/29/21 08:59 Last Admin: 01/01/21 09:01 Dose: 500 mg Documented by: Bisacodyl (Bisacodyl 10 Mg Supp) 10 mg IA DAILY PRN PRN Reason: Constipation Stop: 01/28/21 23:07 Docusate Sodium (Docusate Sodium 100 Mg Cap) 100 mg PO BID HENRIQUE Stop: 01/29/21 08:59 Last Admin: 01/01/21 09:01 Dose: 100 mg Documented by: Famotidine (Famotidine 20 Mg Tab) 20 mg PO DAILY HENRIQUE Stop: 01/29/21 08:59 Last Admin: 01/01/21 09:00 Dose: 20 mg Documented by: Heparin Sodium (Porcine) (Heparin Sod 5,000 Unit/0.5 Ml Vial) 5,000 units SQ Q12 HENRIQUE Stop: 01/29/21 08:59 Last Admin: 01/01/21 09:01 Dose: 5,000 units Documented by: Levothyroxine Sodium (Levothyroxine Sodium 88 Mcg Tablet) 88 mcg PO DAILYBB HENRIQUE Stop: 01/29/21 06:29 Last Admin: 01/01/21 05:15 Dose: 88 mcg Documented by: Magnesium Hydroxide (Magnesium Hydroxide Susp 30 Ml Udc) 30 ml PO DAILY PRN PRN Reason: Constipation Stop: 01/28/21 23:07 Melatonin (Melatonin 3 Mg Tab) 3 mg PO HSZ PRN PRN Reason: Sleep Stop: 01/28/21 23:54 Mirtazapine (Mirtazapine Tab 15 Mg Tab) 15 mg PO HS HENRIQUE Stop: 01/29/21 20:59 Last Admin: 12/31/20 20:16 Dose: 15 mg Documented by: Ondansetron HCl (Ondansetron 4 Mg Od Tab) 4 mg PO Q4H PRN PRN Reason: Nausea/Vomiting Stop: 01/28/21 23:57 Ondansetron HCl (Ondansetron Inj 2 Mg/Ml 2 Ml Vial) 4 mg IV Q6H PRN PRN Reason: Nausea Stop: 01/28/21 23:07 Polyethylene Glycol (Polyethylene (Miralax) 17 Gm Pack) 17 gm PO DAILY HENRIQUE Stop: 01/29/21 08:59 Last Admin: 01/01/21 09:01 Dose: 17 gm Documented by: Risperidone (Risperidone 0.5 Mg Tablet) 0.5 mg PO BID HENRIQUE Stop: 01/29/21 08:59 Last Admin: 01/01/21 10:09 Dose: 0.5 mg Documented by: Vitamin D (Cholecalciferol 1,000 Units 25 Mcg Tab) 2,000 units PO DAILY HENRIQUE Stop: 01/29/21 08:59 Last Admin: 01/01/21 09:00 Dose: 2,000 units Documented by: Resident Activity Tracking Resident Involvement: Resident Care Provided Care Provided: Adult [facility] Medicine (1) Fall Encounter type: initial encounter Qualified Code(s): W19.XXXA - Unspecified fall, initial encounter
--- NOTE | 2021-01-01 19:14 | Billing Data ---
Date of Service January 01, 2021 Coding Level of Care Code 79437 Subseq Hosp Care Lvl 1
[2021-01-01] MEDS: MIRTAZAPINE TAB 15 MG TAB PO SCH (20:10)
[2021-01-02] MEDS: LEVOTHYROXINE SODIUM 88 MCG TABLET PO SCH (05:31)
[2021-01-02] MEDS: ACETAMINOPHEN 325 MG TAB PO PRN (08:56)
[2021-01-02] MEDS: DOCUSATE SODIUM 100 MG CAP PO SCH ×2 (08:56→20:28)
[2021-01-02] MEDS: HEPARIN SOD 5,000 UNIT/0.5 ML VIAL SQ SCH ×2 (08:57→20:29)
[2021-01-02] MEDS: CHOLECALCIFEROL 1,000 UNITS 25 MCG TAB PO SCH (08:58)
[2021-01-02] MEDS: ASCORBIC ACID 500 MG TAB PO SCH ×2 (08:58→20:28)
[2021-01-02] MEDS: POLYETHYLENE (MIRALAX) 17 GM PACK PO SCH (08:59)
[2021-01-02] MEDS: risperiDONE 0.5 MG TABLET PO SCH ×2 (08:59→20:28)
[2021-01-02] MEDS: FAMOTIDINE 20 MG TAB PO SCH (08:59)
--- NOTE | 2021-01-02 09:24 | Hospitalist Progress Note ---
Date of Service January 02, 2021 Assessment & Plan (1) Fall: Plan: 80 y/o F here with fall (1) Fall at longterm: Generalized weakness/Ambulatory Dysfunctio Fall at longterm/multiple acute and chronic pelvic and rib fractures- PT/OT consulted, recommend SNF She should be encouraged to use her walker, which she does not remember if she was using it or not during the fall today Family asked that patient be admitted to hospital for placement Acetaminophen 650 mg p.o. every 6 hours as needed mild pain or fever Patient encouraged to eat and drink regularly currently awaiting placement (2) Multiple pelvic fractures: Continue calcium and vitamin D (5) Protein calorie malnutrition: Chronic issue (6) Schizoaffective disorder: Continue usual medications: Mirtazapine, risperidone and melatonin (7) Hypothyroidism, postablative: Continue Aleve thyroxine 88 mcg daily (8) GERD (gastroesophageal reflux disease): Continue famotidine 20 mg daily FENa: regular Code Status: DNR/DNI DVT PPX: heparin PT/OT: ordered, recommend inpt rehab, SNF Case Management: [] Dispo: inpt rehab, SNF [facility] Do PGY 1, FCM (2) Multiple pelvic fractures: Admission and Anticipated Discharge Date Admission Date: December 29, 2020 Supervising Physician Co-Signing Physician Notes I personally examined the patient and verified all osorio points of history and exam, discussed case, and agree with decision making with Dr Barajas notes some uncontrolled pain with movement. otherwise doing OK. waiting placement still. Vitals noted, resting comforatably nad. HEENT normocephalic atraumatic mucous membranes moist. Breathing unlabored no accessory muscle use good effort. Skin shows no rashes no pallor or icterus. Neuro without focal deficits Fall with probable osteoporotic fracture of right superior and inferior pubic rami, left inferior pubic ramus and angulated and displaced fracture of S2 with bilateral sacral insufficiency fractures that are also likely subacute to chronic -pain control (she notes uncontrolled pain todayof note she is only taking Tylenol daily as needed over the last 2 daystherefore will change to 3 times daily scheduled), PT/OT, anticipate SNF with rehab emphasis once available. Outpatient bone health work- up. Otherwise as above. Subjective 80yo Female PMH falls prev fractures here for fall and hip fracture. Patient seen seated next to bedside, states she felt she couldn't move when she woke up this morning, states she can move now but feels weaker. Patient states she ate dinner last night and has been encouraged to drink more water. Patient states she will try to drink water throughout the day, states the tylenol is controlling her pain well but moving causes her pain, she spends most of her time seated. Per nursing note her BP was slightly soft last night, patient was given juice and her BP improved. Review of Systems Review of Systems: Positive weakness Negative fever chills Negative headache dizziness Negative chest pain palpitations SOB Negative nausea vomitting diarrhea constipation Negative numbness tingling rash swelling Physical Exam Physical Exam: General: Well appearing, age appropriate Heart: RRR, +S1 S2, no murmurs/gallops/rubs Lungs: cta b/l, no wheezes/rales/rhonchi Abd: soft, NT/ND, +BS Extremities: +3/5 b/l LE hip and knee strength, +4/5 feet dorsi and plantarflexion. +5/5 strength b/l UE, can move arms over head. no swelling, no rashes Results & Data Results & Data ([facility]) Vital Signs (Past 12 Hours) Vital Signs Temp Pulse Pulse Resp BP BP Pulse Ox 01/02/21 07:37 36.6 C 75 16 117/73 95 01/02/21 05:30 36.6 C 60 14 109/68 93 01/01/21 22:59 36.8 C 55 L 14 94/58 L 96 Medications Administered Current Inpatient Medications Acetaminophen (Acetaminophen 325 Mg Tab) 650 mg PO Q4H PRN PRN Reason: pain/fever Stop: 01/28/21 23:07 Last Admin: 01/02/21 08:56 Dose: 650 mg Documented by: Artificial Tears (Artificial Tears) 2 drops OP BID PRN PRN Reason: Dry Eyes Stop: 01/28/21 23:57 Last Admin: 12/30/20 21:34 Dose: 2 drops Documented by: Ascorbic Acid (Ascorbic Acid 500 Mg Tab) 500 mg PO BID HENRIQUE Stop: 01/29/21 08:59 Last Admin: 01/02/21 08:58 Dose: 500 mg Documented by: Bisacodyl (Bisacodyl 10 Mg Supp) 10 mg HI DAILY PRN PRN Reason: Constipation Stop: 01/28/21 23:07 Docusate Sodium (Docusate Sodium 100 Mg Cap) 100 mg PO BID HENRIQUE Stop: 01/29/21 08:59 Last Admin: 01/02/21 08:56 Dose: 100 mg Documented by: Famotidine (Famotidine 20 Mg Tab) 20 mg PO DAILY HENRIQUE Stop: 01/29/21 08:59 Last Admin: 01/02/21 08:59 Dose: 20 mg Documented by: Heparin Sodium (Porcine) (Heparin Sod 5,000 Unit/0.5 Ml Vial) 5,000 units SQ Q12 HENRIQUE Stop: 01/29/21 08:59 Last Admin: 01/02/21 08:57 Dose: 5,000 units Documented by: Levothyroxine Sodium (Levothyroxine Sodium 88 Mcg Tablet) 88 mcg PO DAILYBB HENRIQUE Stop: 01/29/21 06:29 Last Admin: 01/02/21 05:31 Dose: 88 mcg Documented by: Magnesium Hydroxide (Magnesium Hydroxide Susp 30 Ml Udc) 30 ml PO DAILY PRN PRN Reason: Constipation Stop: 01/28/21 23:07 Melatonin (Melatonin 3 Mg Tab) 3 mg PO HSZ PRN PRN Reason: Sleep Stop: 01/28/21 23:54 Mirtazapine (Mirtazapine Tab 15 Mg Tab) 15 mg PO HS HENRIQUE Stop: 01/29/21 20:59 Last Admin: 01/01/21 20:10 Dose: 15 mg Documented by: Ondansetron HCl (Ondansetron 4 Mg Od Tab) 4 mg PO Q4H PRN PRN Reason: Nausea/Vomiting Stop: 01/28/21 23:57 Ondansetron HCl (Ondansetron Inj 2 Mg/Ml 2 Ml Vial) 4 mg IV Q6H PRN PRN Reason: Nausea Stop: 01/28/21 23:07 Polyethylene Glycol (Polyethylene (Miralax) 17 Gm Pack) 17 gm PO DAILY HENRIQUE Stop: 01/29/21 08:59 Last Admin: 01/02/21 08:59 Dose: 17 gm Documented by: Risperidone (Risperidone 0.5 Mg Tablet) 0.5 mg PO BID HENRIQUE Stop: 01/29/21 08:59 Last Admin: 01/02/21 08:59 Dose: 0.5 mg Documented by: Vitamin D (Cholecalciferol 1,000 Units 25 Mcg Tab) 2,000 units PO DAILY HENRIQUE Stop: 01/29/21 08:59 Last Admin: 01/02/21 08:58 Dose: 2,000 units Documented by: Resident Activity Tracking Resident Involvement: Resident Care Provided Care Provided: Adult Hospital Medicine (1) Fall Encounter type: initial encounter Qualified Code(s): W19.XXXA - Unspecified fall, initial encounter
--- NOTE | 2021-01-02 18:12 | Billing Data ---
Date of Service January 02, 2021 Coding Level of Care Code 88389 Subseq Hosp Care Lvl 2
[2021-01-02] MEDS: MIRTAZAPINE TAB 15 MG TAB PO SCH (20:28)
[2021-01-02] MEDS: ACETAMINOPHEN 325 MG TAB PO SCH (20:34)
[2021-01-02] MEDS: ARTIFICIAL TEARS OP PRN (20:34)
[2021-01-03] MEDS: LEVOTHYROXINE SODIUM 88 MCG TABLET PO SCH (06:30)
[2021-01-03] MEDS: ARTIFICIAL TEARS OP PRN (06:30)
--- NOTE | 2021-01-03 06:50 | Hospitalist Progress Note ---
Date of Service January 03, 2021 Assessment & Plan (1) Fall: Plan: 80 y/o F here with fall (1) Fall at longterm: Generalized weakness/Ambulatory Dysfunction Fall at longterm/multiple acute and chronic pelvic and rib fractures- PT/OT consulted, recommend SNF She should be encouraged to use her walker, which she does not remember if she was using it or not during the fall today Family asked that patient be admitted to hospital for placement Acetaminophen 650 mg p.o. every 6 hours as needed mild pain or fever Patient encouraged to eat and drink regularly Placement at [facility] Thursday (2) Multiple pelvic fractures: Continue calcium and vitamin D (5) Protein calorie malnutrition: Chronic issue (6) Schizoaffective disorder: Continue usual medications: Mirtazapine, risperidone and melatonin (7) Hypothyroidism, postablative: Continue Aleve thyroxine 88 mcg daily (8) GERD (gastroesophageal reflux disease): Continue famotidine 20 mg daily FENa: regular Code Status: DNR/DNI DVT PPX: heparin PT/OT: ordered, recommend inpt rehab, SNF Case Management: [] Dispo: inpt rehab, SNF [facility]ella [facility]ajas Do PGY 1, FCM (2) Multiple pelvic fractures: Admission and Anticipated Discharge Date Admission Date: December 29, 2020 Supervising Physician Co-Signing Physician Notes I personally examined the patient and verified all osorio points of history and exam, discussed case, and agree with decision making with Dr Barajas Resting comfortably. Discussed with nursingshe is actually doing reasonably well getting around as far as pain control. Obviously very weak, easily confused. SNF unfortunately not until next week Vitals noted, resting comforatably nad. HEENT normocephalic atraumatic mucous membranes moist. Breathing unlabored no accessory muscle use good effort. Skin shows no rashes no pallor or icterus. Neuro without focal deficits at rest Fall with probable osteoporotic fracture of right superior and inferior pubic rami, left inferior pubic ramus and angulated and displaced fracture of S2 with bilateral sacral insufficiency fractures that are also likely subacute to chronic -pain control (seems betterespecially in discussion with nursing), PT/OT, anticipate SNF with rehab emphasis once available, which unfortunately will not be until next week. Outpatient bone health work-up. Otherwise as above. Subjective 80yo Female PMH falls prev fractures here for fall and hip fracture. Patient seen seated next to bedside, states her legs feel weaker, PT has seen her yesterday she has pain on movement but less than before. Patient states she has a good appetite, no pain while seated. Patient states she is nervous about going to [facility] as she has never been there before. Review of Systems Review of Systems: Positive weakness Negative fever chills Negative headache dizziness Negative chest pain palpitations SOB Negative nausea vomitting diarrhea constipation Negative numbness tingling rash swelling Physical Exam Physical Exam: General: Well appearing, age appropriate Heart: RRR, +S1 S2, no murmurs/gallops/rubs Lungs: cta b/l, no wheezes/rales/rhonchi Abd: soft, NT/ND, +BS Extremities: +3/5 b/l LE hip and knee strength, +4/5 feet dorsi and plantarflexion. +5/5 strength b/l UE, can move arms over head. no swelling, no rashes Results & Data Results & Data ([facility]) Vital Signs (Past 12 Hours) Vital Signs Temp Pulse Resp BP Pulse Ox 01/02/21 23:42 36.6 C 60 18 109/64 95 Resident Activity Tracking Resident Involvement: Resident Care Provided Care Provided: Adult Hospital Medicine (1) Fall Encounter type: initial encounter Qualified Code(s): W19.XXXA - Unspecified fall, initial encounter
[2021-01-03] MEDS: ACETAMINOPHEN 325 MG TAB PO SCH ×3 (08:01→19:55)
[2021-01-03] MEDS: FAMOTIDINE 20 MG TAB PO SCH (08:01)
[2021-01-03] MEDS: DOCUSATE SODIUM 100 MG CAP PO SCH ×2 (08:01→19:55)
[2021-01-03] MEDS: CHOLECALCIFEROL 1,000 UNITS 25 MCG TAB PO SCH (08:01)
[2021-01-03] MEDS: ASCORBIC ACID 500 MG TAB PO SCH ×2 (08:01→19:56)
[2021-01-03] MEDS: HEPARIN SOD 5,000 UNIT/0.5 ML VIAL SQ SCH ×2 (08:02→19:55)
[2021-01-03] MEDS: POLYETHYLENE (MIRALAX) 17 GM PACK PO SCH (08:02)
[2021-01-03] MEDS: bisacodyL 10 MG SUPP PR SCH (08:02)
[2021-01-03] MEDS: risperiDONE 0.5 MG TABLET PO SCH ×2 (08:02→19:56)
[2021-01-03] MEDS: MIRTAZAPINE TAB 15 MG TAB PO SCH (19:56)
--- NOTE | 2021-01-03 20:37 | Billing Data ---
Date of Service January 03, 2021 Coding Level of Care Code 28302 Subseq Hosp Care Lvl 1
[2021-01-04] MEDS: LEVOTHYROXINE SODIUM 88 MCG TABLET PO SCH (06:09)
[2021-01-04] MEDS: risperiDONE 0.5 MG TABLET PO SCH ×2 (09:39→20:35)
[2021-01-04] MEDS: ACETAMINOPHEN 325 MG TAB PO SCH ×3 (09:39→20:36)
[2021-01-04] MEDS: ASCORBIC ACID 500 MG TAB PO SCH ×2 (09:39→22:25)
[2021-01-04] MEDS: DOCUSATE SODIUM 100 MG CAP PO SCH ×2 (09:39→20:36)
[2021-01-04] MEDS: CHOLECALCIFEROL 1,000 UNITS 25 MCG TAB PO SCH (09:39)
[2021-01-04] MEDS: FAMOTIDINE 20 MG TAB PO SCH (09:39)
[2021-01-04] MEDS: POLYETHYLENE (MIRALAX) 17 GM PACK PO SCH (09:40)
[2021-01-04] MEDS: HEPARIN SOD 5,000 UNIT/0.5 ML VIAL SQ SCH ×2 (09:47→20:36)
[2021-01-04] MEDS: bisacodyL 10 MG SUPP PR SCH (13:54)
--- NOTE | 2021-01-04 15:53 | Hospitalist Progress Note ---
Date of Service January 04, 2021 Assessment & Plan (1) Fall: Plan: 80 y/o F here with fall (1) Fall at halfway: Generalized weakness/Ambulatory Dysfunction Fall at halfway/multiple acute and chronic pelvic and rib fractures- PT/OT consulted, recommend SNF She should be encouraged to use her walker, which she does not remember if she was using it or not during the fall today Family asked that patient be admitted to hospital for placement Acetaminophen 650 mg p.o. every 6 hours as needed mild pain or fever Patient encouraged to eat and drink regularly Consult placed to psych for [facility] Placement at [facility] Thursday --> may be delayed due to [facility] (2) Multiple pelvic fractures: Continue calcium and vitamin D (5) Protein calorie malnutrition: Chronic issue (6) Schizoaffective disorder: Continue usual medications: Mirtazapine, risperidone and melatonin (7) Hypothyroidism, postablative: Continue Aleve thyroxine 88 mcg daily (8) GERD (gastroesophageal reflux disease): Continue famotidine 20 mg daily FENa: regular Code Status: DNR/DNI DVT PPX: heparin PT/OT: ordered, recommend inpt rehab, SNF Case Management: [] Dispo: inpt rehab, SNF [facility] Do PGY 1, FCM (2) Multiple pelvic fractures: Admission and Anticipated Discharge Date Admission Date: December 29, 2020 Supervising Physician Co-Signing Physician Notes I personally examined the patient and verified all osorio points of history and exam, discussed case, and agree with decision making with Dr Barajas Feels like she is doing okay. Feels like pain is okay under control right now. Vitals noted, resting comforatably nad. HEENT normocephalic atraumatic mucous membranes moist. Breathing unlabored no accessory muscle use good effort. Skin shows no rashes no pallor or icterus. Neuro without focal deficits at rest Fall with probable osteoporotic fracture of right superior and inferior pubic rami, left inferior pubic ramus and angulated and displaced fracture of S2 with bilateral sacral insufficiency fractures that are also likely subacute to chronic -continue pain control (scheduled Tylenol), PT/OT, anticipate SNF with rehab emphasis once available, which unfortunately will not be until next week. Outpatient bone health work- up. Otherwise as above. Subjective 80yo Female PMH falls prev fractures here for fall and hip fracture. Patient seen seated next to bedside, states she feels more comfortable walking next to someone knowing they can catch her, states she ate a lot at lunch. Patient describes trying to use an incentive spirometer. Patient understands she is waiting for inpatient rehab. Per nurse, patient is a little forgetful, needs things described multiple times. Review of Systems Review of Systems: Negative fever chills Negative headache dizziness Negative chest pain palpitations SOB Negative nausea vomitting diarrhea constipation Negative numbness tingling rash swelling Physical Exam Physical Exam: General: Well appearing, age appropriate Heart: RRR, +S1 S2, no murmurs/gallops/rubs Lungs: cta b/l, no wheezes/rales/rhonchi Abd: soft, NT/ND, +BS Extremities: no swelling, no rashes Results & Data Results & Data ([facility]) Vital Signs (Past 12 Hours) Vital Signs Temp Pulse Pulse Resp BP BP Pulse Ox 01/04/21 15:28 36.9 C 75 14 116/73 97 01/04/21 06:28 36.6 C 66 18 119/76 96 Medications Administered Current Inpatient Medications Acetaminophen (Acetaminophen 325 Mg Tab) 650 mg PO TID [facility] Stop: 02/01/21 20:59 Last Admin: 01/04/21 13:55 Dose: 650 mg Documented by: Artificial Tears (Artificial Tears) 2 drops OP BID PRN PRN Reason: Dry Eyes Stop: 01/28/21 23:57 Last Admin: 01/03/21 06:30 Dose: 2 drops Documented by: Ascorbic Acid (Ascorbic Acid 500 Mg Tab) 500 mg PO BID HENRIQUE Stop: 01/29/21 08:59 Last Admin: 01/04/21 09:39 Dose: 500 mg Documented by: Bisacodyl (Bisacodyl 10 Mg Supp) [address] DAILY HENRIQUE Stop: 02/02/21 08:59 Last Admin: 01/04/21 13:54 Dose: 10 mg Documented by: Docusate Sodium (Docusate Sodium 100 Mg Cap) 100 mg PO BID HENRIQUE Stop: 01/29/21 08:59 Last Admin: 01/04/21 09:39 Dose: 100 mg Documented by: Famotidine (Famotidine 20 Mg Tab) 20 mg PO DAILY HENRIQUE Stop: 01/29/21 08:59 Last Admin: 01/04/21 09:39 Dose: 20 mg Documented by: Heparin Sodium (Porcine) (Heparin Sod 5,000 Unit/0.5 Ml Vial) 5,000 units SQ Q12 HENRIQUE Stop: 01/29/21 08:59 Last Admin: 01/04/21 09:47 Dose: 5,000 units Documented by: Levothyroxine Sodium (Levothyroxine Sodium 88 Mcg Tablet) 88 mcg PO DAILYBB HENRIQUE Stop: 01/29/21 06:29 Last Admin: 01/04/21 06:09 Dose: 88 mcg Documented by: Magnesium Hydroxide (Magnesium Hydroxide Susp 30 Ml Udc) 30 ml PO DAILY PRN PRN Reason: Constipation Stop: 01/28/21 23:07 Melatonin (Melatonin 3 Mg Tab) 3 mg PO HSZ PRN PRN Reason: Sleep Stop: 01/28/21 23:54 Mirtazapine (Mirtazapine Tab 15 Mg Tab) 15 mg PO HS HENRIQUE Stop: 01/29/21 20:59 Last Admin: 01/03/21 19:56 Dose: 15 mg Documented by: Ondansetron HCl (Ondansetron 4 Mg Od Tab) 4 mg PO Q4H PRN PRN Reason: Nausea/Vomiting Stop: 01/28/21 23:57 Ondansetron HCl (Ondansetron Inj 2 Mg/Ml 2 Ml Vial) 4 mg IV Q6H PRN PRN Reason: Nausea Stop: 01/28/21 23:07 Polyethylene Glycol (Polyethylene (Miralax) 17 Gm Pack) 17 gm PO DAILY HENRIQUE Stop: 01/29/21 08:59 Last Admin: 01/04/21 09:40 Dose: 17 gm Documented by: Risperidone (Risperidone 0.5 Mg Tablet) 0.5 mg PO BID HENRIQUE Stop: 01/29/21 08:59 Last Admin: 01/04/21 09:39 Dose: 0.5 mg Documented by: Vitamin D (Cholecalciferol 1,000 Units 25 Mcg Tab) 2,000 units PO DAILY HENRIQUE Stop: 01/29/21 08:59 Last Admin: 01/04/21 09:39 Dose: 2,000 units Documented by: Resident Activity Tracking Resident Involvement: Resident Care Provided Care Provided: Adult [facility] Medicine (1) Fall Encounter type: initial encounter Qualified Code(s): W19.XXXA - Unspecified fall, initial encounter
--- NOTE | 2021-01-04 19:53 | Billing Data ---
Date of Service January 04, 2021 Coding Level of Care Code 57873 Subseq Hosp Care Lvl 1
[2021-01-04] MEDS: MIRTAZAPINE TAB 15 MG TAB PO SCH (20:37)
[2021-01-05] MEDS: LEVOTHYROXINE SODIUM 88 MCG TABLET PO SCH (06:37)
[2021-01-05 07:35] LABS: Hematocrit (blood only) 34.8 % (37-47); Hemoglobin 11.6 g/dL (12.0-16.0); Mean Corpuscular Hemoglobin 32.4 pg (25-34); Mean Corpuscular Hgb Conc 33.3 g/dL (32-36); Mean Corpuscular Volume 97.2 fL (80-100); Mean Platelet Volume 9.8 fL (7.4-10.4); Platelet Count 218 K/uL (130-400); RDW Coefficient of Variation 13.7 % (11.5-14.5); RDW Standard Deviation 48.8 fL (36.4-46.3); Red Blood Count 3.58 M/uL (4.2-5.4); White Blood Count 3.58 K/uL (4.8-10.8)
[2021-01-05 07:53] LABS: BUN Creatinine Ratio 38.4 (10-20); Calcium 9.7 mg/dl (8.5-10.1); Creatinine Clr Calc Pharmacy 56.1 ml/min; Est GFR (African American) 99.6 ml/min; Est GFR (Non-African American) 85.9 ml/min; Potassium 4.3 mmol/L (3.5-5.1)
--- NOTE | 2021-01-05 09:26 | Psychiatric Consultation ---
Date of Consultation January 05, 2021 Impression / Recommendations Impression Patient is a 80 yo woman with history of schizoaffective disorder and dementia admitted medically after a fall with plan for next level of care for rehab of her injury. From a psychiatric standpoint the patient is psychiatrically stable for transfer to a detention facility. There is no acute indication for inpatient psychiatric hospitalization as the patient is not suicidal or homicidal; there is no evidence of psychosis. Psychiatric follow-up care for this patient should include:continuation of her mirtazapine and risperidone under the direction of her providers. (1) Schizoaffective disorder: (2) Memory changes: -continue mirtazapine and risperidone -psychiatrically stable for discharge/transfer to appropriate level of nursing care Risk Factors Assessment Do You Have Access To A Gun?: No Hopelessness: No Psych History Identifying Data Patient is a 80 year old woman with a history of schizoaffective disorder and dementia admitted to the medical service s/p fall. Psychiatry was consulted by Dr. Barajas for assessment of appropriateness for discharge to next level of care. Chief Complaint "Good morning, I had breakfast". History of Present Illness Aleisha is sitting in bed this morning eating breakfast. She is oriented to person. Notes that she is unsure where she is going next but understands she will be going somewhere to receive support regaining her strength after her fall which she is in agreement with. She denies any mood symptoms noting she has been "too busy" in the hospital to feel depressed or anxious. She denies any thoughts of suicide nor any history of past attempts. She denies HI. She denies any current psychotic symptoms. She feels her psychiatric medications work well and denies any side effects or problems with them. She denies any pain. Reports good sleep and good appetite. Past Psychiatric History Previous Psych History: Schizoaffective disorder has been on mirtazapine and risperidone. Do You Have Access To A Gun?: No History of Previous Suicide Attempt: No Allergies Allergy/AdvReac Type Severity Reaction Status Date / Time midazolam AdvReac Mild confused, Verified 12/29/20 15:40 off balence buspirone AdvReac Unknown paranoia Unverified 12/29/20 15:40 EPINEPHrine Base AERS Allergy Unknown Unknown Uncoded 12/29/20 15:40 Home Medications Medication Instructions Recorded Confirmed Type docusate sodium 100 mg capsule 100 mg PO BID 04/12/20 12/29/20 History (Colace) levothyroxine 88 mcg tablet 88 mcg PO QAM 04/12/20 12/29/20 History (Synthroid) ascorbic acid (vitamin C) 500 mg 500 mg PO BID 08/11/20 12/29/20 History tablet (Vitamin C) bisacodyl 10 mg rectal suppository 10 mg MN DAILY PRN 08/11/20 12/29/20 History (Dulcolax (bisacodyl)) carboxymethylcellulose sodium 0.25 2 drp OPHTHALMIC (EYE) BID PRN 08/11/20 12/29/20 History % eye drops cholecalciferol (vitamin D3) 50 50 mcg PO DAILY 08/11/20 12/29/20 History mcg (2,000 unit) tablet (Vitamin D3) famotidine 20 mg tablet 20 mg PO DAILY 08/11/20 12/29/20 History magnesium hydroxide 400 mg/5 mL 30 ml PO DAILY PRN 08/11/20 12/29/20 History oral suspension (Milk of Magnesia) melatonin 3 mg disintegrating 3 mg PO HS 08/11/20 12/29/20 History tablet ondansetron 4 mg disintegrating 4 mg PO Q4H PRN 08/11/20 12/29/20 History tablet polyethylene glycol 3350 17 17 g PO DAILY 08/11/20 12/29/20 History gram/dose oral powder acetaminophen 325 mg capsule 650 mg PO QID PRN cap 11/26/20 12/29/20 History (Tylenol) risperidone 0.5 mg tablet 0.5 mg PO BID #60 tab 11/26/20 12/29/20 Rx mirtazapine 15 mg tablet 15 mg PO HS 12/29/20 12/29/20 History Personal History Beliefs That Will Affect Care: None Patient History Medical History History of vitamin D deficiency Hypothyroidism, postablative IBS (irritable bowel syndrome) Migraine Mood disorder Osteoporosis Protein calorie malnutrition Sarcoid Surgical History History of sigmoidoscopy S/P breast biopsy S/P hysterectomy with oophorectomy S/P subtotal thyroidectomy S/P thoracotomy Family History Mother Cardiovascular disease Diabetes Hypothyroidism Father Cardiovascular disease Diabetes Hypothyroidism Myocardial infarction Other Congestive heart failure Hypertension Denies family history of Colon cancer Ovarian cancer Prostate cancer Breast cancer Social History Smoking Status: Never smoker Second Hand Exposure: No; Hx Alcohol Use: No Hx Substance Use: No Preferred Language: Georgian Communication Ability: Impaired 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 Required: No Beliefs That Will Affect Care: None marital status: Current Living Situation: Personal Care Facility Current Living Situation Comment: friend with patient in ED current occupational status: retired Feels Safe at Home: Yes Safety Concerns: Feels Safe At This Time Physical Activity Frequency: Does not Exercise Seatbelt Use: always Assistive Devices: Walker Physical Exam Psychiatric: Orientation: oriented to person and cooperative Apperance: appropriately groomed Eye Contact: good eye contact Motor Behavior: no abnormal motor movements Speech: normal rate/rhythm/volume of speech Affect: euthymic affect Mood: no depressed mood Thought Process: clear/coherent thought process Thought Content: reality based without delusions; no hopelessness Suicidal Thoughts: denies suicidal thoughts Homicidal Thoughts: denies homicidal thoughts Hallucinations: no auditory hallucinations, no visual hallucinations, no tactile hallucinations and no gustatory hallucinations Cognition: language grossly intact Insight: + impaired insight Judgement: + fair judgement Vital Signs (Past 24 Hours): Last Vital Signs Temp 36.4 C L 01/05/21 07:03 Pulse 63 01/05/21 07:03 Resp 16 01/05/21 07:03 BP 109/71 01/05/21 07:03 Pulse Ox 97 01/05/21 07:03 Review of Systems Unobtainable due to cognitive status No pain. Results & Data ([facility]) Laboratory Results 01/05/21 01/05/21 Range/Units 06:58 06:58 WBC 3.58 L (4.8-10.8) K/uL RBC 3.58 L (4.2-5.4) M/uL Hgb 11.6 L (12.0-16.0) g/dL Hct 34.8 L (37-47) % MCV 97.2 (80-100) fL MCH 32.4 (25-34) pg MCHC 33.3 (32-36) g/dL RDW Std Deviation 48.8 H (36.4-46.3) fL RDW Coeff of Christophe 13.7 (11.5-14.5) % Plt Count 218 (130-400) K/uL MPV 9.8 (7.4-10.4) fL Sodium 138 (136-145) mmol/L Potassium 4.3 (3.5-5.1) mmol/L Chloride 105 (98-107) mmol/L Carbon Dioxide 29 (21-32) mmol/L Anion Gap 4.0 (3-11) BUN 24 H (7-18) mg/dl Creatinine 0.63 (0.6-1.2) mg/dl Est Cr Clr Drug Dosing 56.1 ml/min Est GFR ( Amer) 99.6 ml/min Est GFR (Non-Af Amer) 85.9 ml/min BUN/Creatinine Ratio 38.4 H (10-20) Glucose 93 (70-99) mg/dl Calcium 9.7 (8.5-10.1) mg/dl Medications Administered Acetaminophen (Acetaminophen 325 Mg Tab) 650 mg PO TID [facility] Stop: 02/01/21 20:59 Last Admin: 01/04/21 20:36 Dose: 650 mg Documented by: [id number] Admin: 01/04/21 13:55 Dose: 650 mg Documented by: [id number] Admin: 01/04/21 09:39 Dose: 650 mg Documented by: [id number] Admin: 01/03/21 19:55 Dose: 650 mg Documented by: [id number] Admin: 01/03/21 13:22 Dose: Not Given Documented by: [id number] Admin: 01/03/21 08:01 Dose: 650 mg Documented by: [id number] Admin: 01/02/21 20:34 Dose: 650 mg Documented by: [id number] Artificial Tears (Artificial Tears) 2 drops OP BID PRN PRN Reason: Dry Eyes Stop: 01/28/21 23:57 Last Admin: 01/03/21 06:30 Dose: 2 drops Documented by: [id number] Admin: 01/02/21 20:34 Dose: 2 drops Documented by: [id number] Admin: 12/30/20 21:34 Dose: 2 drops Documented by: [id number] Ascorbic Acid (Ascorbic Acid 500 Mg Tab) 500 mg PO BID [facility] Stop: 01/29/21 08:59 Last Admin: 01/04/21 22:25 Dose: 500 mg Documented by: [id number] Admin: 01/04/21 09:39 Dose: 500 mg Documented by: [id number] Admin: 01/03/21 19:56 Dose: 500 mg Documented by: [id number] Admin: 01/03/21 08:01 Dose: 500 mg Documented by: [id number] Admin: 01/02/21 20:28 Dose: 500 mg Documented by: [id number] Admin: 01/02/21 08:58 Dose: 500 mg Documented by: [id number] Admin: 01/01/21 20:10 Dose: 500 mg Documented by: [id number] Admin: 01/01/21 09:01 Dose: 500 mg Documented by: [id number] Admin: 12/31/20 20:16 Dose: 500 mg Documented by: [id number] Admin: 12/31/20 08:56 Dose: 500 mg Documented by: [id number] Admin: 12/30/20 19:40 Dose: 500 mg Documented by: [id number] Admin: 12/30/20 07:55 Dose: 500 mg Documented by: [id number] Bisacodyl (Bisacodyl 10 Mg Supp) 10 mg MN DAILY [facility] Stop: 02/02/21 08:59 Last Admin: 01/04/21 13:54 Dose: 10 mg Documented by: [id number] Admin: 01/03/21 08:02 Dose: Not Given Documented by: [id number] Docusate Sodium (Docusate Sodium 100 Mg Cap) 100 mg PO BID [facility] Stop: 01/29/21 08:59 Last Admin: 01/04/21 20:36 Dose: 100 mg Documented by: [id number] Admin: 01/04/21 09:39 Dose: 100 mg Documented by: [id number] Admin: 01/03/21 19:55 Dose: 100 mg Documented by: [id number] Admin: 01/03/21 08:01 Dose: 100 mg Documented by: [id number] Admin: 01/02/21 20:28 Dose: 100 mg Documented by: [id number] Admin: 01/02/21 08:56 Dose: 100 mg Documented by: [id number] Admin: 01/01/21 20:10 Dose: 100 mg Documented by: [id number] Admin: 01/01/21 09:01 Dose: 100 mg Documented by: [id number] Admin: 12/31/20 20:17 Dose: 100 mg Documented by: [id number] Admin: 12/31/20 08:56 Dose: 100 mg Documented by: [id number] Admin: 12/30/20 19:43 Dose: 100 mg Documented by: [id number] Admin: 12/30/20 07:55 Dose: 100 mg Documented by: [id number] Famotidine (Famotidine 20 Mg Tab) 20 mg PO DAILY [facility] Stop: 01/29/21 08:59 Last Admin: 01/04/21 09:39 Dose: 20 mg Documented by: [id number] Admin: 01/03/21 08:01 Dose: 20 mg Documented by: [id number] Admin: 01/02/21 08:59 Dose: 20 mg Documented by: [id number] Admin: 01/01/21 09:00 Dose: 20 mg Documented by: [id number] Admin: 12/31/20 08:56 Dose: 20 mg Documented by: [id number] Admin: 12/30/20 07:55 Dose: 20 mg Documented by: [id number] Heparin Sodium (Porcine) (Heparin Sod 5,000 Unit/0.5 Ml Vial) 5,000 units SQ Q 12 [facility] Stop: 01/29/21 08:59 Last Admin: 01/04/21 20:36 Dose: 5,000 units Documented by: [id number] Admin: 01/04/21 09:47 Dose: 5,000 units Documented by: [id number] Admin: 01/03/21 19:55 Dose: 5,000 units Documented by: [id number] Admin: 01/03/21 08:02 Dose: 5,000 units Documented by: [id number] Admin: 01/02/21 20:29 Dose: 5,000 units Documented by: [id number] Admin: 01/02/21 08:57 Dose: 5,000 units Documented by: [id number] Admin: 01/01/21 20:10 Dose: 5,000 units Documented by: [id number] Admin: 01/01/21 09:01 Dose: 5,000 units Documented by: [id number] Admin: 12/31/20 20:17 Dose: 5,000 units Documented by: [id number] Admin: 12/31/20 08:57 Dose: 5,000 units Documented by: [id number] Admin: 12/30/20 19:43 Dose: 5,000 units Documented by: [id number] Admin: 12/30/20 07:55 Dose: 5,000 units Documented by: [id number] Levothyroxine Sodium (Levothyroxine Sodium 88 Mcg Tablet) 88 mcg PO DAILYBB [facility] Stop: 01/29/21 06:29 Last Admin: 01/05/21 06:37 Dose: 88 mcg Documented by: [id number] Admin: 01/04/21 06:09 Dose: 88 mcg Documented by: [id number] Admin: 01/03/21 06:30 Dose: 88 mcg Documented by: [id number] Admin: 01/02/21 05:31 Dose: 88 mcg Documented by: [id number] Admin: 01/01/21 05:15 Dose: 88 mcg Documented by: [id number] Admin: 12/31/20 05:40 Dose: 88 mcg Documented by: [id number] Admin: 12/30/20 05:19 Dose: 88 mcg Documented by: [id number] Mirtazapine (Mirtazapine Tab 15 Mg Tab) 15 mg PO HS [facility] Stop: 01/29/21 20:59 Last Admin: 01/04/21 20:37 Dose: 15 mg Documented by: [id number] Admin: 01/03/21 19:56 Dose: 15 mg Documented by: [id number] Admin: 01/02/21 20:28 Dose: 15 mg Documented by: [id number] Admin: 01/01/21 20:10 Dose: 15 mg Documented by: [id number] Admin: 12/31/20 20:16 Dose: 15 mg Documented by: [id number] Admin: 12/30/20 19:41 Dose: 15 mg Documented by: [id number] Polyethylene Glycol (Polyethylene (Miralax) 17 Gm Pack) 17 gm PO DAILY [facility] Stop: 01/29/21 08:59 Last Admin: 01/04/21 09:40 Dose: 17 gm Documented by: [id number] Admin: 01/03/21 08:02 Dose: 17 gm Documented by: [id number] Admin: 01/02/21 08:59 Dose: 17 gm Documented by: [id number] Admin: 01/01/21 09:01 Dose: 17 gm Documented by: [id number] Admin: 12/31/20 08:57 Dose: 17 gm Documented by: [id number] Admin: 12/30/20 07:55 Dose: 17 gm Documented by: [id number] Risperidone (Risperidone 0.5 Mg Tablet) 0.5 mg PO BID [facility] Stop: 01/29/21 08:59 Last Admin: 01/04/21 20:35 Dose: 0.5 mg Documented by: [id number] Admin: 01/04/21 09:39 Dose: 0.5 mg Documented by: [id number] Admin: 01/03/21 19:56 Dose: 0.5 mg Documented by: [id number] Admin: 01/03/21 08:02 Dose: 0.5 mg Documented by: [id number] Admin: 01/02/21 20:28 Dose: 0.5 mg Documented by: [id number] Admin: 01/02/21 08:59 Dose: 0.5 mg Documented by: [id number] Admin: 01/01/21 20:10 Dose: 0.5 mg Documented by: [id number] Admin: 01/01/21 10:09 Dose: 0.5 mg Documented by: [id number] Admin: 12/31/20 20:17 Dose: 0.5 mg Documented by: [id number] Admin: 12/31/20 08:56 Dose: 0.5 mg Documented by: [id number] Admin: 12/30/20 19:41 Dose: 0.5 mg Documented by: [id number] Admin: 12/30/20 07:55 Dose: 0.5 mg Documented by: [id number] Vitamin D (Cholecalciferol 1,000 Units 25 Mcg Tab) 2,000 units PO DAILY [facility] Stop: 01/29/21 08:59 Last Admin: 01/04/21 09:39 Dose: 2,000 units Documented by: [id number] Admin: 01/03/21 08:01 Dose: 2,000 units Documented by: [id number] Admin: 01/02/21 08:58 Dose: 2,000 units Documented by: [id number] Admin: 01/01/21 09:00 Dose: 2,000 units Documented by: [id number] Admin: 12/31/20 08:56 Dose: 2,000 units Documented by: [id number] Admin: 12/30/20 07:55 Dose: 2,000 units Documented by: [id number] Coding Level of Care Code 76223 Inpt Consult Level 2 Diagnoses Schizoaffective disorder F25.9 Memory changes R41.3
[2021-01-05] MEDS: POLYETHYLENE (MIRALAX) 17 GM PACK PO SCH (09:48)
[2021-01-05] MEDS: ACETAMINOPHEN 325 MG TAB PO SCH ×3 (09:49→20:35)
[2021-01-05] MEDS: CHOLECALCIFEROL 1,000 UNITS 25 MCG TAB PO SCH (09:49)
[2021-01-05] MEDS: HEPARIN SOD 5,000 UNIT/0.5 ML VIAL SQ SCH ×2 (09:49→20:30)
[2021-01-05] MEDS: DOCUSATE SODIUM 100 MG CAP PO SCH ×2 (09:49→20:34)
[2021-01-05] MEDS: FAMOTIDINE 20 MG TAB PO SCH (09:49)
[2021-01-05] MEDS: risperiDONE 0.5 MG TABLET PO SCH ×2 (09:49→20:35)
[2021-01-05] MEDS: bisacodyL 10 MG SUPP PR SCH (09:54)
[2021-01-05] MEDS: ASCORBIC ACID 500 MG TAB PO SCH ×2 (10:00→20:34)
--- NOTE | 2021-01-05 19:13 | Hospitalist Progress Note ---
Date of Service January 05, 2021 Assessment & Plan (1) Fall: Plan: 80 y/o F here with fall (1) Fall at retirement with probable osteoporotic fracture of right superior and inferior pubic rami, left inferior pubic ramus, angulated and displaced fracture of S2 with bilateral sacral insufficiency fractures that are also likely subacute to chroniccontinue pain control, PT/OT, SNF for rehab once available: Generalized weakness/Ambulatory Dysfunction Fall at retirement/multiple acute and chronic pelvic and rib fractures- PT/OT consulted, recommend SNF Consult placed to psych for Target Processinput appreciated Placement at [facility] regularly in the near future (2) Multiple pelvic fractures: Continue calcium and vitamin D, outpatient bone health work-up for probable osteoporosis (5) Protein calorie malnutrition: Chronic issue, follow/encourage intake (6) Schizoaffective disorder: Continue usual medications: Mirtazapine, risperidone and melatonin (7) Hypothyroidism, postablative: Continue Aleve thyroxine 88 mcg daily (8) GERD (gastroesophageal reflux disease): Continue famotidine 20 mg daily FENa: regular Code Status: DNR/DNI DVT PPX: heparin PT/OT: ordered, recommend inpt rehab, SNF Case Management: [] Dispo: inpt rehab, SNF (2) Multiple pelvic fractures: Admission and Anticipated Discharge Date Admission Date: December 29, 2020 Subjective Generally feeling okay and pain controlled. No new complaints otherwise. Review of Systems Review of Systems: All systems reviewed & are unremarkable except as noted in HPI & below Physical Exam Physical Exam: In general she is awake pleasant fatigued no distress. HEENT normocephalic atraumatic mucous membranes moist. Breathing unlabored no accessory muscle use good effort. Skin shows no rashes no pallor or icterus. Neuro without focal deficits. Results & Data Results & Data ([facility]) Vital Signs (Past 12 Hours) Vital Signs Temp Pulse Resp BP Pulse Ox 01/05/21 15:11 97.7 F 68 14 108/71 96 PG Care Time/CCT Total # of Minutes Spent Total Time Spent with Patient: Total time spent is greater than 50% in coordination of care (as documented) at patient's floor/unit and/or counseling patient: Coding Level of Care Code 53553 Subseq Hosp Care Lvl 1 Diagnoses Fall W19.XXXA Encounter type: initial encounter Multiple pelvic fractures S32.82XA (1) Fall Encounter type: initial encounter Qualified Code(s): W19.XXXA - Unspecified fall, initial encounter
[2021-01-05] MEDS: MIRTAZAPINE TAB 15 MG TAB PO SCH (20:30)
[2021-01-06] MEDS: LEVOTHYROXINE SODIUM 88 MCG TABLET PO SCH (05:33)
[2021-01-06] MEDS: HEPARIN SOD 5,000 UNIT/0.5 ML VIAL SQ SCH ×2 (09:40→20:37)
[2021-01-06] MEDS: FAMOTIDINE 20 MG TAB PO SCH (09:41)
[2021-01-06] MEDS: POLYETHYLENE (MIRALAX) 17 GM PACK PO SCH (09:41)
[2021-01-06] MEDS: ASCORBIC ACID 500 MG TAB PO SCH ×2 (09:41→20:38)
[2021-01-06] MEDS: CHOLECALCIFEROL 1,000 UNITS 25 MCG TAB PO SCH (09:41)
[2021-01-06] MEDS: DOCUSATE SODIUM 100 MG CAP PO SCH ×2 (09:41→20:38)
[2021-01-06] MEDS: risperiDONE 0.5 MG TABLET PO SCH ×2 (09:41→20:38)
[2021-01-06] MEDS: ACETAMINOPHEN 325 MG TAB PO SCH ×3 (09:41→20:38)
[2021-01-06] MEDS: bisacodyL 10 MG SUPP PR SCH (14:28)
--- NOTE | 2021-01-06 16:26 | Hospitalist Progress Note ---
Date of Service January 06, 2021 Assessment & Plan (1) Fall: Plan: 80 y/o F here with fall (1) Fall at half-way with probable osteoporotic fracture of right superior and inferior pubic rami, left inferior pubic ramus, angulated and displaced fracture of S2 with bilateral sacral insufficiency fractures that are also likely subacute to chroniccontinue pain control, PT/OT, SNF for rehab once available: Generalized weakness/Ambulatory Dysfunction Fall at half-way/multiple acute and chronic pelvic and rib fractures- PT/OT consulted, recommend SNF Consult placed to psych for Target Processinput appreciated For subacute rehab once bed available/target process completed/etc. (2) Multiple pelvic fractures: Continue calcium and vitamin D, outpatient bone health work-up/management for probable osteoporosis (5) Protein calorie malnutrition: Chronic issue, follow/encourage intake (6) Schizoaffective disorder: Continue usual medications: Mirtazapine, risperidone and melatonin (7) Hypothyroidism, postablative: Continue Synthroid 88 mcg daily (8) GERD (gastroesophageal reflux disease): Continue famotidine 20 mg daily FENa: regular Code Status: DNR/DNI DVT PPX: heparin PT/OT: ordered, recommend inpt rehab, SNF Case Management: [] Dispo: inpt rehab, SNF (2) Multiple pelvic fractures: Admission and Anticipated Discharge Date Admission Date: December 29, 2020 Subjective Getting up with help. Feels like she is doing okay. Notes that she has pain with movement, but notes overall pain is under reasonable control. Review of Systems Review of Systems: All systems reviewed & are unremarkable except as noted in HPI & below Physical Exam Physical Exam: In general she is awake and alert pleasant no distress. HEENT normocephalic atraumatic mucous membranes moist. Breathing unlabored no accessory muscle use good effort. Skin shows no rashes no pallor or icterus. Neuro without focal deficits. Results & Data Results & Data ([facility]) Vital Signs (Past 12 Hours) Vital Signs Temp Pulse Resp BP Pulse Ox 01/06/21 15:31 98.1 F 64 16 125/72 98 01/06/21 07:47 98.1 F 62 16 124/77 97 PG Care Time/CCT Total # of Minutes Spent Total Time Spent with Patient: Total time spent is greater than 50% in coordination of care (as documented) at patient's floor/unit and/or counseling patient: Coding Level of Care Code 46300 Subseq Hosp Care Lvl 1 Diagnoses Fall W19.XXXA Encounter type: initial encounter Multiple pelvic fractures S32.82XA (1) Fall Encounter type: initial encounter Qualified Code(s): W19.XXXA - Unspecified fall, initial encounter
[2021-01-06] MEDS: MIRTAZAPINE TAB 15 MG TAB PO SCH (20:38)
[2021-01-06] MEDS: ARTIFICIAL TEARS OP PRN (22:53)
[2021-01-07] MEDS: LEVOTHYROXINE SODIUM 88 MCG TABLET PO SCH (05:21)
[2021-01-07] MEDS: POLYETHYLENE (MIRALAX) 17 GM PACK PO SCH (08:17)
[2021-01-07] MEDS: ACETAMINOPHEN 325 MG TAB PO SCH ×2 (08:19→14:42)
[2021-01-07] MEDS: CHOLECALCIFEROL 1,000 UNITS 25 MCG TAB PO SCH (08:19)
[2021-01-07] MEDS: ASCORBIC ACID 500 MG TAB PO SCH (08:19)
[2021-01-07] MEDS: FAMOTIDINE 20 MG TAB PO SCH (08:19)
[2021-01-07] MEDS: HEPARIN SOD 5,000 UNIT/0.5 ML VIAL SQ SCH (08:19)
[2021-01-07] MEDS: DOCUSATE SODIUM 100 MG CAP PO SCH (08:19)
[2021-01-07] MEDS: risperiDONE 0.5 MG TABLET PO SCH (08:19)
--- NOTE | 2021-01-07 13:22 | Hospitalist Progress Note ---
Date of Service January 07, 2021 Assessment & Plan (1) Fall: Plan: 80 y/o F here with fall (1) Fall at retirement with probable osteoporotic fracture of right superior and inferior pubic rami, left inferior pubic ramus, angulated and displaced fracture of S2 with bilateral sacral insufficiency fractures that are also likely subacute to chroniccontinue pain control, PT/OT, SNF for rehab once available: Generalized weakness/Ambulatory Dysfunction Fall at retirement/multiple acute and chronic pelvic and rib fractures- PT/OT consulted, recommend SNF Consult placed to psych for Target Processinput appreciated For subacute rehab once bed available/target process completed/etc. and continue therapy inpatient while awaiting snf/subacute rehab disposition (2) Multiple pelvic fractures: Continue calcium and vitamin D, should have outpatient bone health work- up/management for probable osteoporosis (5) Protein calorie malnutrition: Chronic issue, follow/encourage intake (6) Schizoaffective disorder: Continue usual medications: Mirtazapine, risperidone and melatonin (7) Hypothyroidism, postablative: Continue Synthroid 88 mcg daily (8) GERD (gastroesophageal reflux disease): Continue famotidine 20 mg daily FENa: regular Code Status: DNR/DNI DVT PPX: heparin PT/OT: ordered, recommend inpt rehab, SNF Case Management: [] Dispo: inpt rehab, SNF - once bureaucratic process completed (2) Multiple pelvic fractures: Admission and Anticipated Discharge Date Admission Date: December 29, 2020 Subjective feeling ok. worked with therapy. didn't do as well as she wanted to, but felt like she did the best she could. d/w case management - still waiting on target paperwork/etc - very unlikely to be able to get to snf today Review of Systems Review of Systems: All systems reviewed & are unremarkable except as noted in HPI & below Physical Exam Physical Exam: gen aao pleasant nad heent nc at mmm breathing unlabored no accessory muscles good effort skin no rashes no pallor or icterus no focal neuro deficits Results & Data Results & Data ([facility]) Vital Signs (Past 12 Hours) Vital Signs Temp Pulse Resp BP Pulse Ox 01/07/21 07:12 97.5 F L 58 L 16 114/69 97 PG Care Time/CCT Total # of Minutes Spent Total Time Spent with Patient: Total time spent is greater than 50% in coordination of care (as documented) at patient's floor/unit and/or counseling patient: Coding Level of Care Code 42721 Subseq Hosp Care Lvl 1 Diagnoses Fall W19.XXXA Encounter type: initial encounter Multiple pelvic fractures S32.82XA (1) Fall Encounter type: initial encounter Qualified Code(s): W19.XXXA - Unspecified fall, initial encounter
--- NOTE | 2021-01-07 14:19 | Discharge Summary ---
Date of Service January 07, 2021 Admission HPI Per Admitting Provider The patient is a 80-year-old female with a past med history including sciatica, sarcoid, mitral vegetation, post ablative hypothyroidism, hyperparathyroidism, papillary thyroid carcinoma, function, IBS, protein calorie, schizoaffective disorder, encephalopathy, and history of previous falls. The patient was found by staff at her personal long term. She does not remember the process leading up to the fall, but only remembers being on the floor. She does not remember if she tripped and fell, and does not remember if she was using her walker. Her HPI and review of systems is somewhat limited by underlying dementia Principal Diagnosis Fall, pelvic fracturespresumed osteoporotic Discharge Exam Pleasant no distresssee progress note same date Discharge Data Allergies Allergy/AdvReac Type Severity Reaction Status Date / Time midazolam AdvReac Mild confused, Verified 12/29/20 15:40 off balence buspirone AdvReac Unknown paranoia Unverified 12/29/20 15:40 EPINEPHrine Base AERS Allergy Unknown Unknown Uncoded 12/29/20 15:40 Consultations 12/29/20 20:23 ED Decision to Admit Stat 01/04/21 10:53 Consult Psychiatry Routine Ordered Studies 12/29/20 15:24 CT head/brain wo con Stat 12/29/20 19:22 CT bony pelvis wo con Stat Hospital Course (1) Fall: 80 y/o F here with fall (1) Fall at snf with probable osteoporotic fracture of right superior and inferior pubic rami, left inferior pubic ramus, angulated and displaced fracture of S2 with bilateral sacral insufficiency fractures that are also likely subacute to chroniccontinue pain control, PT/OT, SNF for rehab once available: Generalized weakness/Ambulatory Dysfunction Fall at snf/multiple acute and chronic pelvic and rib fractures- PT/OT consulted, recommend SNF For subacute rehab today (2) Multiple pelvic fractures: Continue calcium and vitamin D, should have outpatient bone health work- up/management for probable osteoporosis (5) Protein calorie malnutrition: Chronic issue, follow/encourage intake (6) Schizoaffective disorder: Continue usual medications: Mirtazapine, risperidone and melatonin (7) Hypothyroidism, postablative: Continue Synthroid 88 mcg daily (8) GERD (gastroesophageal reflux disease): Continue famotidine 20 mg daily Heparin subcu utilized for DVT prophylaxis while here (2) Multiple pelvic fractures: Total Time Total Time Spent Total Time Spent (In Minutes): <30 Discharge Plan Discharge Items Patient Disposition: Transfer Inpatient Rehab Fac Reason For Visit: FALLS, PELVIC FRACTURES Discharge Diagnosis: Pelvic Fracture due to fall Condition on Discharge: Fair Activity: Resume your previous activity Non-emergency contact: Primary Care Provider Call non-emergency contact if: you have any medication questions, your symptoms worsen, your pain is not controlled and you have a fever Follow-up/Referrals: Yasmany Hinds [Primary Care Provider] - Diet: Regular Addtl Attending Provider Instructions: pelvic fractures -WBAT, pain control has done well with tylenol scheduled -PT/OT eval and treat ongoing -outpatient bone health/presumed osteoporosis workup and treatment Pending Studies at Discharge: No Stand-Alone Forms: [facility] [employer] Skilled Items Patient informed of condition?: Yes DNR: Yes Discharge Level of Care: Skilled Communicable Disease: No Discharge Prognosis: Stable Lines: None Urinary Catheter: No Medications and DC Order Prescriptions: New heparin, porcine (PF) 5,000 unit/0.5 mL Syringe 5,000 unit subcut Q12 Qty: 25 RF: 0 acetaminophen 325 mg Tablet 650 mg PO TID Qty: 30 RF: 0 Continued risperidone 0.5 mg tablet 0.5 mg PO BID Qty: 60 RF: 2 levothyroxine [Synthroid] 88 mcg tablet 88 mcg PO QAM RF: 0 docusate sodium [Colace] 100 mg capsule 100 mg PO BID RF: 0 famotidine 20 mg Tablet 20 mg PO DAILY RF: 0 ascorbic acid (vitamin C) [Vitamin C] 500 mg Tablet 500 mg PO BID RF: 0 polyethylene glycol 3350 17 gram/dose Powder 17 g PO DAILY RF: 0 cholecalciferol (vitamin D3) [Vitamin D3] 50 mcg (2,000 unit) Tablet 50 mcg PO DAILY RF: 0 melatonin 3 mg Tablet,Disintegrating 3 mg PO HS RF: 0 carboxymethylcellulose sodium 0.25 % Drops 2 drp OPHTHALMIC (EYE) BID PRN (Reason: Dry Eyes) RF: 0 magnesium hydroxide [Milk of Magnesia] 400 mg/5 mL Suspension 30 ml PO DAILY PRN (Reason: Constipation) RF: 0 bisacodyl [Dulcolax (bisacodyl)] 10 mg Suppository 10 mg MS DAILY PRN (Reason: Constipation) RF: 0 ondansetron 4 mg Tablet,Disintegrating 4 mg PO Q4H PRN (Reason: Nausea/Vomiting) RF: 0 mirtazapine 15 mg tablet 15 mg PO HS RF: 0 Discontinued acetaminophen [Tylenol] 325 mg capsule 650 mg PO QID PRN (Reason: Pain) RF: 0 Discharge Orders: Discharge Order (Routine); Ordered 01/07/21 Ordered By: Alexei Prieto Admission Data Admit Date/Time: 12/29/20 21:07 Attending Provider: Alexei Prieto Admit Provider: Darryl Jenkins Primary Care Provider: Yasmany Hinds Other Providers: Darryl Jenkins ; [facility] ; Estefania Crawley at [place] ; Noreen Vargas ; Stephanie Burnett ; Jazmyne Simons ; Trevin Love Coding Level of Care Code D/C DAY MANAGEMENT <30 MINS Diagnoses Fall W19.XXXA Encounter type: initial encounter Multiple pelvic fractures S32.82XA Comment Disregard 231
[2021-01-07] MEDS: bisacodyL 10 MG SUPP PR SCH (14:35)
== END 2021-01-07 16:41 | DRG 543 ==
LOC: ED 14:57 → SUATTDRO 21:07 → 3E 21:07